=== PATIENT | female | born 1975 | race Caucasian/White ===

== ENCOUNTER 2019-09-11 17:12 | Outpatient (CLI) | payer OTHER, SELFPAY ==
--- NOTE | ~2019-09-11 | MM_ITS ---
EXAMINATION: MM screening mammo BI HISTORY: Screening mammogram TECHNIQUE: Craniocaudal and mediolateral oblique 3-D tomosynthesis images were obtained and synthetic 2-D images were generated. CAD analysis was submitted and interpreted. COMPARISON: No prior mammogram is available for comparison at this institution. BREAST PARENCHYMAL COMPOSITION: The breasts are heterogeneously dense, which may obscure small masses . FINDINGS: There is no evidence of suspicious mass, calcification, or architectural distortion to sugg est malignancy in either breast. There has been no suspicious interval change. IMPRESSION: 1. No mammographic evidence of malignancy. 2. Recommend routine screening mammography in one year. BI-RADS Category 1: Negative Reviewed, dictated and finalized at location A. LY INJURY ADJUSTER
== END 2019-09-11 17:13 | disposition home or self-care (01) ==
LOC: ANHIMG 17:14
PROVIDERS: PCP Family Medicine; Visit Provider Family Medicine
DX: Z12.31 Encounter for screening mammogram for malignant neoplasm of breast (principal)
CPT/HCPCS: 77067

== ENCOUNTER 2020-09-07 06:54 | Outpatient (NON) | payer BC, SELFPAY ==
[2020-09-07 21:14] LABS: SARS-CoV-2 RNA PCR Negative
== END 2020-09-07 06:55 ==
LOC: ANHCOVIDDT 06:58
PROVIDERS: Family Provider Family Medicine; PCP Family Medicine; Visit Provider Physician Assistant
DX: R05 Cough (principal); Z20.822 Contact with and (suspected) exposure to COVID-19
CPT/HCPCS: C9803; U0003; U0005

== ENCOUNTER 2020-09-21 04:39 | Inpatient (IN) | payer BC, SELFPAY ==
[2020-09-21] VITALS (29 sets, daily range): BP systolic 90–132; BP diastolic 56–91; PULSE 72–103; RESP 18–31; TEMP 36.6–37.4; O2SAT 91–99
--- NOTE | ~2020-09-21 | XR_ITS ---
EXAMINATION: XR chest 1V portable DATE: 09/23/2020 11:49 INDICATION: Shortness of breath. COVID-19 pneumonia. TECHNIQUE: A single frontal view of the chest was obtained. COMPARISON: Chest single view 09/21/2020 FINDINGS: There are patchy airspace opacities in all lung zones with a peripheral and mid and lower l glenna zone predominance. No pleural effusion or pneumothorax. The heart size is normal. IMPRESSION: 1. Stable diffuse lung disease, consistent with COVID-19 pneumonia. Reviewed, dictated and finalized at location A. Y EQUIPMENT ENGINE MECHANIC
--- NOTE | ~2020-09-21 | XR_ITS ---
EXAMINATION: XR chest 1V portable DATE: 09/21/2020 05:50 INDICATION: Shortness of breath. COVID-19 positive. TECHNIQUE: A single frontal view of the chest was obtained. COMPARISON: None. FINDINGS: There are patchy airspace opacities in all lung zones bilaterally with a mid and lower lung zone predominance. No pleural effusion or pneumothorax. The heart size is normal. IMPRESSION: 1. Diffuse lung disease, consistent with COVID-19 pneumonia. Reviewed, dictated and finalized at location A. ULATING BATH MIXER
--- NOTE | 2020-09-21 04:43 | PC.NURSE ---
Pt. asking for updates on Pt. states he is concerned about her and that she is starting to get confused.
--- NOTE | 2020-09-21 05:55 | ECG_ITS ---
Measurements Intervals Diagonal Rate: 83 P: 41 WY: 150 QRS: 28 QRSD: 94 T: 30 QT: 360 QTc: 425 Interpretive Statements SINUS RHYTHM BORDERLINE T WAVE ABNORMALITY- INFERIOR LEADS BASELINE ARTIFACT- I, II, III, AVR, AVF BORDERLINE ECG Electronically Signed On 09-21-2020 7:00:34 PIPE ORGAN BUILDER by Lex Paulino D.O.
--- NOTE | 2020-09-21 05:59 | ED.SOB ---
HPI - SOB/Dyspnea General Chief Complaint: Shortness of Breath/Dyspnea Stated Complaint: Covid-19 positive, short of breath Time Seen by Provider: 09/21/20 04:46 History of Present Illness HPI Narrative: Patient is a 44-year-old female who presents the ER with shortness of breath. Patient has been having Covid symptoms for the last week. These include fever/chills/loss of taste/loss of smell. She is also had cough and has been short of breath. The shortness of breath worsened in the last 24 hours. She feels somewhat fatigued she cannot get around. She has not been on any medications. Tested positive for Covid 5 days ago Related Data Home Medications Medication Instructions Recorded Confirmed fexofenadine 60 mg tablet 60 mg PO Q12H 08/12/20 Allergies Allergy/AdvReac Type Severity Reaction Status Date / Time corn Allergy Severe facial Verified 09/21/20 04:56 flushing and tingling gluten Allergy Unknown Gastrointestinal Verified 09/21/20 04:56 Upset doxycycline AdvReac Severe Nausea and Verified 09/21/20 04:56 Vomiting Review of Systems Review of Systems: All systems reviewed & are unremarkable except as noted in HPI and below Constitutional: Constitutional: Reports chills, Reports fatigue and Reports fever(s) ENT: Denies nasal congestion and Denies sore throat Cardiovascular: Cardiovascular: Denies chest pain, Denies rapid heart rate and Denies radiating jaw, neck or arm pain Respiratory: Respiratory: Reports cough, Reports dyspnea and Denies wheezing Gastrointestinal: Gastrointestinal: Denies abdominal pain, Denies diarrhea, Denies nausea and Denies vomiting PMFSH Past Medical History Medical History Allergies Anxiety Arthritis Hx of headache Psoriasis Viral meningitis (~1999) Surgical History Surgical History History of ankle surgery History of kidney donation (~2012) History of partial hysterectomy (~2008) Family History Family History Grandparent Diabetes mellitus Hypertension Family history of elevated blood lipids Family history of cardiovascular disease Cerebrovascular accident Family history of arthritis Family history of Parkinson's disease Family history of malignant neoplasm of bone Family history of malignant neoplasm of breast in first degree relative Skin cancer Acute myocardial infarction Heart disease Cancer Gout Father Depression Family history of arthritis Cancer Mother Family history of glaucoma Hypertension Family history of elevated blood lipids Fibromyalgia Anxiety GERD (gastroesophageal reflux disease) Social History Social History Smoking status: Never smoker Second hand tobacco smoke exposure: No Alcohol intake: never Substance use: never Substance use type: does not use Gender identity (if verbalized by the patient): Female Exam Narrative: Exam Narrative: GENERAL: Fatigued-appearing, well-nourished, and in no acute distress. HEAD: Normocephalic, atraumatic. CHEST: Clear to auscultation with faint expiratory wheezing at the apices. No respiratory distress. HEART: Regular rate and rhythm. Normal peripheral pulses. ABDOMEN: Soft, nontender, nondistended. EXTREMITIES: Normal range of motion. No edema. SKIN: Warm, dry, no rash. NEURO: Alert and oriented x3. PSYCH: Normal mood and affect. Course Course Emergency Course: Admit to hospitalist service. Dexamethasone ordered. Vital Signs Vital signs: Vital Signs Temperature 99.3 F 09/21/20 04:51 Pulse Rate 84 09/21/20 04:51 Respiratory Rate 22 H 09/21/20 04:51 Blood Pressure 112/56 L 09/21/20 04:51 Pulse Oximetry 94 09/21/20 04:51 Temperature 99.3 F 09/21/20 04:51 Pulse Rate 86 09/21/20 04
[2020-09-21 06:34] LABS: Basophils Percent Auto 0.4 % (0.2-1.2); Hematocrit 43.8 % (37.0-47.0); Hemoglobin 15.4 g/dL (12.0-15.0); Immature Granulocyte Absolute 0.03 K/mm3 (0.00-0.031); Immature Granulocyte Percent A 0.6 % (0-0.5); Lymphocytes Absolute Auto 1.22 K/mm3 (0.9-3.2); Lymphocytes Percent Auto 22.9 % (18.3-44.2); Mean Corpuscular HGB Conc 35.2 g/dl (32-36); Mean Corpuscular Volume 90.9 fl (80-100); Mean Platelet Volume 10.4 fl (7.4-10.4); Monocytes Absolute Auto 0.3 K/mm3 (0.1-0.6); Monocytes Percent Auto 4.7 % (2.6-8.5); Neutrophils Absolute Auto 3.8 K/mm3 (1.3-6.7); Neutrophils Percent Auto 71.4 % (45.5-73.1); Platelet Count Result 149 k/mm3 (150-375); Red Blood Count 4.82 M/mm3 (4.2-5.4); Red Cell Distribution Width 12.3 % (11.5-14.5); White Blood Count 5.3 K/mm3 (4.5-10.0)
[2020-09-21 06:45] LABS: D Dimer 0.83 ug/mL (<0.48)
[2020-09-21 06:47] LABS: Alanine Aminotransferase 22 U/L (4-35); Albumin Level 3.7 g/dL (3.5-5.1); Alkaline Phosphatase 72 U/L (38-126); Anion Gap 8 mmol/L (8-16); Aspartate Amino Transferase 49 U/L (14-36); Bilirubin,Total 0.4 mg/dL (0.2-1.3); Blood Urea Nitrogen 10 mg/dL (7-17); CRP 6.3 mg/dL (<1.0); Carbon Dioxide 23 mmol/L (22-30); Chloride 98 mmol/L (98-107); Estimated CRCL calculation 91 ml/min; Estimated Glomerular Filt Rate > 60; Glucose 121 mg/dL (65-105); Potassium 4.1 mmol/L (3.4-5.0); Sodium 129 mmol/L (137-145)
[2020-09-21] MEDS: ACETAMINOPHEN 325 MG TABLET 650 MG PO ×2 (07:02→23:56)
[2020-09-21] MEDS: DEXAMETHASONE SOD PHOS INJ 4 MG/ML VIAL 6 MG IV PUSH (07:07)
--- NOTE | 2020-09-21 07:08 | PC.NURSE ---
Bedside report to XAVI Kemp, to continue care.
--- NOTE | 2020-09-21 10:49 | ADMGEN ---
This patient, Inocencia Acosta, was admitted to 3 Med Surg Room 307-01. Patient/family oriented to hospital policies and general routines including ID bracelet, bed and alarms, visiting hours, pain management, procedures, bathroom and other care routines, personal items, smoking policy, room service/diet, and visiting hours. Information on how to activate the Rapid Response Team has been discussed. Patient/Family are encouraged to report perceived risks to care and to ask questions if they do not understand what they are told or what they should do.
--- NOTE | 2020-09-21 11:11 | PM.IMHP ---
H&P: HPI History of Present Illness Date/Time: 09/21/20 11:11 Chief Complaint: Shortness of breath Narrative: Inocencia Acosta is a 44 year old female patient presented to the hospital with cough and shortness of breath for the past 1 week shortness of breath is worsening gradually worsening with activity patient also have a headache and sore throat patient was tested positive 5 days ago for COVID-19 August patient was tested for COVID-19 was negative chest x-ray shows diffuse pneumonia patient was admitted to the hospital for further evaluation and treatment Review of Systems Review of Systems: All systems reviewed & are unremarkable except as noted in HPI and below PMFSH Past Medical History Medical History Allergies Anxiety Arthritis Hx of headache Psoriasis Viral meningitis (~1999) Surgical History Surgical History History of ankle surgery History of kidney donation (~2012) History of partial hysterectomy (~2008) Family History Family History Grandparent Diabetes mellitus Hypertension Family history of elevated blood lipids Family history of cardiovascular disease Cerebrovascular accident Family history of arthritis Family history of Parkinson's disease Family history of malignant neoplasm of bone Family history of malignant neoplasm of breast in first degree relative Skin cancer Acute myocardial infarction Heart disease Cancer Gout Father Depression Family history of arthritis Cancer Mother Family history of glaucoma Hypertension Family history of elevated blood lipids Fibromyalgia Anxiety GERD (gastroesophageal reflux disease) Social History Social History Smoking status: Never smoker Second hand tobacco smoke exposure: No Alcohol intake: never Substance use: never Substance use type: does not use Gender identity (if verbalized by the patient): Female Sexual Orientation (if Verbalized by the Patient): Straight or Heterosexual Spiritual care concerns: No Meds Home Medications and Allergies Home Medications Medication Instructions Recorded Confirmed Type cyclobenzaprine 10 mg tablet 10 mg PO TID #90 tablet 08/20/19 09/21/20 Rx alprazolam 0.5 mg tablet 0.5 mg PO TID PRN #90 tablet 08/25/19 09/21/20 Rx betamethasone, augmented 0.05 % 1 applic TOPICAL BID PRN #15 gm 06/22/20 09/21/20 Rx topical cream fluticasone propionate 50 1 spray INTRANASAL DAILY #15.8 ml 08/08/20 09/21/20 Rx mcg/actuation nasal spray,suspension fexofenadine 60 mg tablet 60 mg PO Q12H 08/12/20 09/21/20 History sertraline 100 mg tablet 100 mg PO DAILY #90 tablet 08/16/20 09/21/20 Rx albuterol sulfate 90 mcg/actuation 1 puff INHALATION Q4H PRN #8.5 g 09/15/20 09/21/20 Rx aerosol inhaler codeine 10 mg-guaifenesin 100 mg/5 10 ml PO Q4-6H PRN #120 ml 09/20/20 09/21/20 Rx mL oral liquid Allergies Allergy/AdvReac Type Severity Reaction Status Date / Time corn Allergy Severe facial Verified 09/21/20 04:56 flushing and tingling gluten Allergy Unknown Gastrointestinal Verified 09/21/20 04:56 Upset doxycycline AdvReac Severe Nausea and Verified 09/21/20 04:56 Vomiting Vital Signs Vital Signs - 24 hr 09/21/20 04:50 09/21/20 04:51 09/21/20 04:59 Temperature 99.3 F Pulse Rate 86 87 86 Respiratory Rate 31 H 22 H Blood Pressure 112/56 L Pulse Oximetry 91 92 93 09/21/20 05:00 09/21/20 05:01 09/21/20 05:16 Temperature Pulse Rate 85 84 81 Respiratory Rate Blood Pressure 126/91 H Pulse Oximetry 93 94 93 09/21/20 05:30 09/21/20 05:31 09/21/20 05:45 Temperature Pulse Rate 80 80 82 Respiratory Rate Blood Pressure 122/77 Pulse Oximetry 96 94 96 09/21/20 05:46 09/21/20 0
[2020-09-21] MEDS: SODIUM CHLORIDE 0.9% IV 1,000 ML 125 ML IV CONT ×2 (11:25→23:29)
[2020-09-21 11:53] LABS: Alanine Aminotransferase 23 U/L (4-35); Estimated CRCL calculation 91 ml/min; Estimated Glomerular Filt Rate > 60; Lactate Dehydrogenase 806 U/L (313-618)
[2020-09-21 12:01] LABS: D Dimer 0.67 ug/mL (<0.48)
[2020-09-21] MEDS: ZINC SULFATE 220 MG CAPSULE PO (12:20)
[2020-09-21] MEDS: ASCORBIC ACID 500 MG TABLET 1000 MG PO (12:20)
[2020-09-21] MEDS: CHOLECALCIFEROL 1,000 UNITS TABLET 1000 UNITS PO (12:21)
[2020-09-21 12:42] LABS: Fibrinogen 298 mg/dl (215-510)
--- NOTE | 2020-09-21 13:18 | WPDINFPN2 ---
Progress Note: A&P Assessment and Plan (1) Pneumonia due to COVID-19 virus: Code(s): U07.1 - COVID-19; J12.82 - Pneumonia due to coronavirus disease 2019 Status: Acute Assessment and Plan: Dyspnea and cough due to CoVid 19, symptom onset 09/13, exposure 09/11. REC Remdesivir #, dexamethasone # . No antibacterials Subjective Date/time seen: 09/21/20 13:18 Objective Data Vital Signs Vital Signs: Vital Signs - 24 hr 09/21/20 04:50 09/21/20 04:51 09/21/20 04:59 Temperature 37.4 C Pulse Rate 86 87 86 Respiratory Rate 31 H 22 H Blood Pressure 112/56 L Pulse Oximetry 91 92 93 09/21/20 05:00 09/21/20 05:01 09/21/20 05:16 Temperature Pulse Rate 85 84 81 Respiratory Rate Blood Pressure 126/91 H Pulse Oximetry 93 94 93 09/21/20 05:30 09/21/20 05:31 09/21/20 05:45 Temperature Pulse Rate 80 80 82 Respiratory Rate Blood Pressure 122/77 Pulse Oximetry 96 94 96 09/21/20 05:46 09/21/20 06:00 09/21/20 06:01 Temperature Pulse Rate 81 85 84 Respiratory Rate Blood Pressure 126/85 130/86 Pulse Oximetry 94 98 95 09/21/20 06:15 09/21/20 06:17 09/21/20 06:35 Temperature Pulse Rate 81 83 86 Respiratory Rate Blood Pressure 132/82 Pulse Oximetry 96 96 98 09/21/20 07:32 09/21/20 08:18 09/21/20 08:30 Temperature Pulse Rate 81 80 80 Respiratory Rate Blood Pressure Pulse Oximetry 95 95 96 09/21/20 08:32 09/21/20 08:45 09/21/20 08:47 Temperature Pulse Rate 77 78 83 Respiratory Rate Blood Pressure 128/84 130/85 Pulse Oximetry 95 95 96 09/21/20 09:00 09/21/20 09:15 09/21/20 09:17 Temperature Pulse Rate 79 79 79 Respiratory Rate Blood Pressure 90/62 L Pulse Oximetry 96 95 96 09/21/20 10:30 Temperature Pulse Rate 72 Respiratory Rate 18 Blood Pressure 120/66 Pulse Oximetry 97 Meds/Results Medications: Active Medications Generic Name Dose Route Start Last Admin Trade Name Freq PRN Reason Stop Dose Admin Acetaminophen 650 mg 09/21/20 11:06 Acetaminophen 325 Mg Tablet PO Q4H PRN Mild Pain (1-3) or Fever Hydrocodone Bitart/Acetaminophen 1 tab 09/21/20 07:36 Hydrocodone/Acetaminophen (*Crx) 5-325 Mg Tablet PO Q4H PRN Pain Rated 4-6 Al Hydrox/Mg Hydrox/Simethicone 30 ml 09/21/20 11:06 Mag Hydrox/Al Hydrox/Simeth 30 Ml Udc PO QID PRN Dyspepsia Albuterol 2 puff 09/21/20 11:16 Albuterol Sulfate (*Sp) Inhaler INHALATION QIDRT PRN Shortness Of Breath Ascorbic Acid 1,000 mg 09/21/20 09:00 09/21/20 12:20 Ascorbic Acid 500 Mg Tablet PO 1,000 mg DAILY AVERY Administration Bisacodyl 5 mg 09/21/20 11:06 Bisacodyl 5 Mg Tablet Ec PO DAILY PRN Constipation Dexamethasone Sodium Phosphate 6 mg 09/22/20 09:00 Dexamethasone Sod Phos Inj 4 Mg/Ml Vial IV PUSH 09/30/20 09:01 DAILY AVERY Enoxaparin Sodium 30 mg 09/21/20 21:00 Enoxaparin 30 Mg/0.3 Ml Syringe SUB-Q Q12HR AVERY Guaifenesin 200 mg 09/21/20 11:09 Guaifenesin 200 Mg/10 Ml Udc PO Q4H PRN Cough Sodium Chloride 1,000 mls @ 125 mls/hr 09/21/20 07:40 09/21/20 11:25 Normal Saline Iv IV CONT 125 mls/hr .Q8H AVERY Administration Ceftriaxone Sodium/Dextrose 1 gm in 50 mls @ 100 mls/hr 09/21/20 12:00 09/21/20 12:21 Rocephin 1 Gm/D5w 50 Ml IVPB 100 mls/hr Q24H AVERY Administration Remdesivir 100 mg in 250 mls @ 250 mls/hr 09/22/20 10:00 IVPB 09/25/20 10:01 Q24H AVERY Morphine Sulfate 4 mg 09/21/20 07:36 Morphine Sulfate (*Crx) 4 Mg/Ml Inj IV PUSH Q2H PRN Pain Rated 7-10 Ondansetron HCl 4 mg 09/21/20 11:06 Ondansetron Inj 4 Mg/2 Ml Vial IV PUSH Q6H PRN Nausea And Vomiting Vitamin D 1,000 units 09/21/20 09:00 09/21/20 12:21 Cholecalciferol 1,000 Units Tablet PO 1,000 units DAILY AVERY Administration Zinc Sulfate 220 mg 09/21/20 09:00 09/21/20 12:20 Zinc Sulfate 220
[2020-09-21] MEDS: REMDESIVIR 200 MG/NS 250 ML 200 MG/250 ML BAG 250 MG IVPB (13:40)
[2020-09-21] MEDS: guaiFENesin 200 MG/10 ML UDC PO ×2 (16:03→21:16)
--- NOTE | 2020-09-21 19:04 | CONS_ITS ---
DATE OF CONSULTATION: 09/21/2020 REASON FOR CONSULTATION: Coronavirus infection. HISTORY OF PRESENT ILLNESS: A 44-year-old female without chronic lung disease. She is a nonsmoker. She began feeling ill on September 06 with a tickling cough. She was seen in Dr. Osborne's office the same day and was given azithromycin. A Coronavirus assay obtained by throat swab was nonreactive on the following day. Her cough resolved by September 08 and she felt well over the next 5 days. However, on September 13, 8 days before admission, she had recurrence of her cough, but this was quite different and that it felt as it was in her chest and was hacking and much more persistent. She had been exposed to an ill friend 2 days prior, who subsequently has tested positive for Coronavirus. The patient was seen in Dr. Osborne's office once again on September 15, and she was given a corticosteroid injection, doxycycline, and Tessalon Perles. A repeat Coronavirus assay was requested and this was found to be positive on September 16. Being 3 days before admission, the patient had new onset of dyspnea as well as loss of taste and smell. The dyspnea became worse and she presented to the emergency room early this morning, has now been admitted. Her room air saturation was 91% on arrival. She has been on oxygen ever since. The doxycycline caused stomach cramps. No other reaction. She has been given ceftriaxone for unknown reason and also been started on dexamethasone and remdesivir. Other than the above, no prior Coronavirus assays in the last year. No fever, chills, sweats. ALLERGIES: NO KNOWN DRUG ALLERGIES. HABITS: No alcohol, no tobacco. PRESENT MEDICATIONS: As above. No longer-term immunosuppressants. PAST MEDICAL HISTORY: Psoriasis, not treated with systemic medication, anxiety, headaches, viral meningitis in the distant past. PAST SURGICAL HISTORY: Ankle surgery, partial hysterectomy, and kidney donation. FAMILY HISTORY: Multiple positive. SOCIAL HISTORY: She is and works. She has 2 sons, 1 who lives in [place]. Her son has been socially from the parents starting on September 16. However, there were 3 days when he was with his family. The patient's has also tested positive same-day, but he has been minimally symptomatic. PHYSICAL EXAMINATION: GENERAL: female, appears her actual age, in no distress, on supplemental O2. Morbidly obese. VITAL SIGNS: Afebrile, 72, 18, 97% on 2 L, 120/66. SKIN: Warm and dry. EENT: Conjunctivae are normal. Pupils equal, round. Gaze is conjugate. NECK: No masses, adenopathy, meningismus. LUNGS: Clear to auscultation and percussion. Good air entry. CARDIAC: Soft S1, S2. Regular rate and rhythm. No murmur, gallop, or ectopy. EXTREMITIES: Pulses are 2+. She has no peripheral clubbing, cyanosis, edema. ABDOMEN: Nontender, nondistended, soft. No masses. LABORATORY DATA: White count 5.3, hemoglobin 15.4, platelets are 149. Differential is normal. D-dimer minimally elevated. She has hyponatremia. Glucose 121. Ferritin is high. AST 49. LDH 806. CRP 6.3. Liver function tests otherwise normal. RADIOLOGY: Chest x-ray, patchy airspace infiltrates, all lung zones. ASSESSMENT: 1. Dyspnea, cough due to Coronavirus pneumonia. Other causes of her present illness are unlikely. I think the cough that she was experiencing on September 06 was not due to Coronavirus infection. Thus, I would date her symptom onset to September 13. Prior exposure 2 days earlier. She has no sign of bacterial superinfection. 2. Obesity. 3. Mild hypoglycemia. RECOMMENDATIONS: 1. Limited expectation for benefit from remdesivir, but appropriate at this time along with dexamethasone. 2. Isolation approp
[2020-09-21] MEDS: ENOXAPARIN 30 MG/0.3 ML SYRINGE SUB-Q (21:06)
[2020-09-21] MEDS: SERTRALINE HCL 50 MG TABLET 100 MG PO (21:43)
[2020-09-22] VITALS (7 sets, daily range): BP systolic 104–130; BP diastolic 40–72; PULSE 58–114; RESP 16–20; TEMP 36.3–37; O2SAT 91–100
[2020-09-22 06:26] LABS: Basophils Percent Auto 0.1 % (0.2-1.2); Hematocrit 41.9 % (37.0-47.0); Hemoglobin 14.3 g/dL (12.0-15.0); Immature Granulocyte Absolute 0.05 K/mm3 (0.00-0.031); Immature Granulocyte Percent A 0.6 % (0-0.5); Lymphocytes Absolute Auto 1.31 K/mm3 (0.9-3.2); Lymphocytes Percent Auto 15.3 % (18.3-44.2); Mean Corpuscular HGB Conc 34.1 g/dl (32-36); Mean Corpuscular Hemoglobin 31.2 pg (26-34); Mean Corpuscular Volume 91.3 fl (80-100); Mean Platelet Volume 9.9 fl (7.4-10.4); Monocytes Absolute Auto 0.4 K/mm3 (0.1-0.6); Monocytes Percent Auto 4.9 % (2.6-8.5); Neutrophils Absolute Auto 6.8 K/mm3 (1.3-6.7); Neutrophils Percent Auto 79.1 % (45.5-73.1); Platelet Count Result 166 k/mm3 (150-375); Red Blood Count 4.59 M/mm3 (4.2-5.4); White Blood Count 8.5 K/mm3 (4.5-10.0)
[2020-09-22] MEDS: SODIUM CHLORIDE 0.9% IV 1,000 ML 125 ML IV CONT ×2 (06:37→16:06)
[2020-09-22 06:42] LABS: Alanine Aminotransferase 19 U/L (4-35); Estimated CRCL calculation 91 ml/min; Estimated Glomerular Filt Rate > 60
[2020-09-22 06:45] LABS: Alanine Aminotransferase 18 U/L (4-35); Albumin Level 3.2 g/dL (3.5-5.1); Alkaline Phosphatase 58 U/L (38-126); Anion Gap 7 mmol/L (8-16); Aspartate Amino Transferase 41 U/L (14-36); Bilirubin,Total 0.4 mg/dL (0.2-1.3); Blood Urea Nitrogen 12 mg/dL (7-17); CRP 5.7 mg/dL (<1.0); Calcium 7.8 mg/dL (8.4-10.2); Carbon Dioxide 21 mmol/L (22-30); Chloride 104 mmol/L (98-107); Estimated CRCL calculation 101 ml/min; Estimated Glomerular Filt Rate > 60; Glucose 114 mg/dL (65-105); Potassium 4.3 mmol/L (3.4-5.0); Sodium 132 mmol/L (137-145)
[2020-09-22] MEDS: REMDESIVIR 100 MG/NS 250 ML 100 MG/250 ML BAG 250 MG IVPB (10:02)
[2020-09-22] MEDS: CHOLECALCIFEROL 1,000 UNITS TABLET 1000 UNITS PO (10:02)
[2020-09-22] MEDS: guaiFENesin 12 HR 600 MG TABCR PO (10:02)
[2020-09-22] MEDS: ASCORBIC ACID 500 MG TABLET 1000 MG PO (10:03)
[2020-09-22] MEDS: ENOXAPARIN 30 MG/0.3 ML SYRINGE SUB-Q ×2 (10:03→20:01)
[2020-09-22] MEDS: DEXAMETHASONE SOD PHOS INJ 4 MG/ML VIAL 6 MG IV PUSH (10:03)
[2020-09-22] MEDS: ZINC SULFATE 220 MG CAPSULE PO (10:03)
[2020-09-22 11:06] LABS: Fibrinogen 268 mg/dl (215-510)
--- NOTE | 2020-09-22 11:21 | PM.IMPN ---
Progress Note: A&P Assessment and Plan (1) Pneumonia due to COVID-19 virus: Code(s): U07.1 - COVID-19; J12.82 - Pneumonia due to coronavirus disease 2019 Status: Acute Assessment and Plan: Associated with acute hypoxemic respiratory failure Chest x-ray shows infiltrate consistent with COVID-19 lactic acid for routine D-dimer fibroid to lactate dehydrogenase Give dexamethasone remdisever vitamin D zinc vitamin-C no plan for plasma transfusion (2) Hypoxia: Code(s): R09.02 - Hypoxemia Status: Acute Assessment and Plan: Acute hypoxemic respiratory failure secondary to COVID-19 pneumonia oxygen (3) Acute bronchitis: Code(s): J20.9 - Acute bronchitis, unspecified Status: Acute Assessment and Plan: Secondary to COVID-19 management as above (4) Anxiety: Code(s): F41.9 - Anxiety disorder, unspecified Status: Acute Assessment and Plan: Continue home medications once confirmed Additional Plan Nausea vomiting diarrhea probably reaction to Robitussin give Zofran and Imodium Subjective Date/time seen: 09/22/20 11:21 Interval history: Patient seen and examined Patient feels weak shortness of breath has improved Patient had nausea vomiting diarrhea probably reaction to Robitussin Unfortunately limited patient patient cough as she has allergy to corn Patient denies fever headache chest pain I am seeing the patient for COVID-19 pneumonia Exam Narrative: Exam Narrative: Alert Chest bilateral crackles better than yesterday Abdomen nontender nondistended CVS S1 + S2 Lower extremity edema Objective Data Vital Signs Vital Signs: Vital Signs - 24 hr 09/21/20 14:39 09/21/20 16:00 09/21/20 17:31 Temperature 97.9 F 97.9 F Pulse Rate 72 103 H 80 Respiratory Rate 20 20 Blood Pressure 106/62 117/57 L Pulse Oximetry 99 94 09/21/20 20:00 09/22/20 00:00 09/22/20 04:00 Temperature 97.8 F 98.6 F 98.3 F Pulse Rate 82 86 92 Respiratory Rate 20 18 20 Blood Pressure 131/70 119/71 104/40 L Pulse Oximetry 92 95 91 09/22/20 08:00 Temperature 97.8 F Pulse Rate 96 Respiratory Rate 18 Blood Pressure 114/57 L Pulse Oximetry 97 Intake/Output Intake/Output: Intake & Output 02/03/0209/20/20 09/21/20 09/22/20 23:59 23:59 23:59 23:59 Intake Total 1850 1470 Output Total 1200 900 Balance 650 570 Meds/Results Medications: Active Medications Generic Name Dose Route Start Last Admin Trade Name Freq PRN Reason Stop Dose Admin Acetaminophen 650 mg 09/21/20 11:06 09/21/20 23:56 Acetaminophen 325 Mg Tablet PO 650 mg Q4H PRN Administration Mild Pain (1-3) or Fever Hydrocodone Bitart/Acetaminophen 1 tab 09/21/20 07:36 Hydrocodone/Acetaminophen (*Crx) 5-325 Mg Tablet PO Q4H PRN Pain Rated 4-6 Al Hydrox/Mg Hydrox/Simethicone 30 ml 09/21/20 11:06 Mag Hydrox/Al Hydrox/Simeth 30 Ml Udc PO QID PRN Dyspepsia Albuterol 2 puff 09/21/20 11:16 Albuterol Sulfate (*Sp) Inhaler INHALATION QIDRT PRN Shortness Of Breath Ascorbic Acid 1,000 mg 09/21/20 09:00 09/22/20 10:03 Ascorbic Acid 500 Mg Tablet PO 1,000 mg DAILY AVERY Administration Bisacodyl 5 mg 09/21/20 11:06 Bisacodyl 5 Mg Tablet Ec PO DAILY PRN Constipation Dexamethasone Sodium Phosphate 6 mg 09/22/20 09:00 09/22/20 10:03 Dexamethasone Sod Phos Inj 4 Mg/Ml Vial IV PUSH 09/30/20 09:01 6 mg DAILY AVERY Administration Enoxaparin Sodium 30 mg 09/21/20 21:00 09/22/20 10:03 Enoxaparin 30 Mg/0.3 Ml Syringe SUB-Q 30 mg Q12HR AVERY Administration Guaifenesin 600 mg 09/21/20 22:20 09/22/20 10:02 Guaifenesin 12 Hr 600 Mg Tabcr PO 600 mg Q12HR PRN Administration Cough Sodium Chloride 1,000 mls @ 125 mls/hr 09/21/20 07:40 09/22/20 06:37 Normal Saline Iv IV CONT 125 mls/hr .Q8H AVERY Administration Remdesivir 100 mg in 250 mls @ 250 mls/hr 09/22/20 10:00 09/22/20 10:02
[2020-09-22] MEDS: ONDANSETRON INJ 4 MG/2 ML VIAL IV PUSH (12:03)
--- NOTE | 2020-09-22 12:53 | WPDINFPN2 ---
Progress Note: A&P Assessment and Plan (1) Pneumonia due to COVID-19 virus: Code(s): U07.1 - COVID-19; J12.82 - Pneumonia due to coronavirus disease 2019 Status: Acute Assessment and Plan: 1. Dyspnea and cough due to CoVid 19, symptom onset 09/13, exposure 09/11. 2. Nausea and diarrhea, due to past or current meds? REC Remdesivir #2 / 5, dexamethasone # 2 / 10. No antibacterials. C diff assay (multiple recent antibacterials), symptomatic treatment. Subjective Date/time seen: 09/22/20 12:53 Interval history: nausea since last PM, vomited twice so far this am. BM x 3 today, liquid. Exam Narrative: Exam Narrative: afebrile Const: Other: no respiratory distress, but appears ill Eyes: General: appearance normal, both eyes and all related structures Resp: Effort & Inspection: normal respiratory effort Auscultation: clear to auscultation bilaterally Cardio: Rate: regular rate Rhythm: regular rhythm Heart sounds: no murmurs Skin: General skin exam: normal color and no rashes or lesions noted Objective Data Vital Signs Vital Signs: Vital Signs - 24 hr 09/21/20 14:39 09/21/20 16:00 09/21/20 17:31 Temperature 36.6 C 36.6 C Pulse Rate 72 103 H 80 Respiratory Rate 20 20 Blood Pressure 106/62 117/57 L Pulse Oximetry 99 94 09/21/20 20:00 09/22/20 00:00 09/22/20 04:00 Temperature 36.6 C 37.0 C 36.8 C Pulse Rate 82 86 92 Respiratory Rate 20 18 20 Blood Pressure 131/70 119/71 104/40 L Pulse Oximetry 92 95 91 09/22/20 08:00 09/22/20 12:00 Temperature 36.6 C 36.7 C Pulse Rate 97 60 Respiratory Rate 18 16 Blood Pressure 114/57 L 127/72 Pulse Oximetry 97 100 Intake/Output Intake/Output: Intake & Output 09/19/20 09/20/20 09/21/20 09/22/20 23:59 23:59 23:59 23:59 Intake Total 1850 1470 Output Total 1200 900 Balance 650 570 Meds/Results Medications: Active Medications Generic Name Dose Route Start Last Admin Trade Name Freq PRN Reason Stop Dose Admin Acetaminophen 650 mg 09/21/20 11:06 09/21/20 23:56 Acetaminophen 325 Mg Tablet PO 650 mg Q4H PRN Administration Mild Pain (1-3) or Fever Hydrocodone Bitart/Acetaminophen 1 tab 09/21/20 07:36 Hydrocodone/Acetaminophen (*Crx) 5-325 Mg Tablet PO Q4H PRN Pain Rated 4-6 Al Hydrox/Mg Hydrox/Simethicone 30 ml 09/21/20 11:06 Mag Hydrox/Al Hydrox/Simeth 30 Ml Udc PO QID PRN Dyspepsia Albuterol 2 puff 09/21/20 11:16 Albuterol Sulfate (*Sp) Inhaler INHALATION QIDRT PRN Shortness Of Breath Ascorbic Acid 1,000 mg 09/21/20 09:00 09/22/20 10:03 Ascorbic Acid 500 Mg Tablet PO 1,000 mg DAILY AVERY Administration Bisacodyl 5 mg 09/21/20 11:06 Bisacodyl 5 Mg Tablet Ec PO DAILY PRN Constipation Dexamethasone Sodium Phosphate 6 mg 09/22/20 09:00 09/22/20 10:03 Dexamethasone Sod Phos Inj 4 Mg/Ml Vial IV PUSH 09/30/20 09:01 6 mg DAILY AVERY Administration Enoxaparin Sodium 30 mg 09/21/20 21:00 09/22/20 10:03 Enoxaparin 30 Mg/0.3 Ml Syringe SUB-Q 30 mg Q12HR AVERY Administration Guaifenesin 600 mg 09/21/20 22:20 09/22/20 10:02 Guaifenesin 12 Hr 600 Mg Tabcr PO 600 mg Q12HR PRN Administration Cough Sodium Chloride 1,000 mls @ 125 mls/hr 09/21/20 07:40 09/22/20 06:37 Normal Saline Iv IV CONT 125 mls/hr .Q8H AVERY Administration Remdesivir 100 mg in 250 mls @ 250 mls/hr 09/22/20 10:00 09/22/20 10:02 IVPB 09/25/20 10:01 250 mls/hr Q24H AVERY Administration Loperamide HCl 2 mg 09/22/20 11:19 Loperamide Hcl 2 Mg Capsule PO PRN PRN Diarrhea Morphine Sulfate 4 mg 09/21/20 07:36 Morphine Sulfate (*Crx) 4 Mg/Ml Inj IV PUSH Q2H PRN Pain Rated 7-10 Ondansetron HCl 4 mg 09/22/20 11:23 09/22/20 12:03 Ondansetron Inj 4 Mg/2 Ml Vial IV PUSH 4 mg Q6H PRN Administration Nausea And Vomiting Sertraline HCl 100 mg 09/21/20 21:00 09/21/20 21:43 Sertraline Hcl 50
[2020-09-22] MEDS: MAG HYDROX/AL HYDROX/SIMETH 30 ML UDC PO (15:08)
[2020-09-22] MEDS: SERTRALINE HCL 50 MG TABLET 100 MG PO (20:01)
[2020-09-22] MEDS: LOPERAMIDE HCL 2 MG CAPSULE PO (20:01)
[2020-09-23] VITALS (8 sets, daily range): BP systolic 106–136; BP diastolic 53–73; PULSE 73–83; RESP 16–22; TEMP 35.7–36.4; O2SAT 90–95
[2020-09-23] MEDS: SODIUM CHLORIDE 0.9% IV 1,000 ML 125 ML IV CONT ×2 (00:39→08:41)
[2020-09-23 06:31] LABS: Basophils Percent Auto 0.3 % (0.2-1.2); Hematocrit 43.1 % (37.0-47.0); Hemoglobin 14.7 g/dL (12.0-15.0); Immature Granulocyte Absolute 0.06 K/mm3 (0.00-0.031); Immature Granulocyte Percent A 0.9 % (0-0.5); Lymphocytes Absolute Auto 1.35 K/mm3 (0.9-3.2); Mean Corpuscular HGB Conc 34.1 g/dl (32-36); Mean Corpuscular Hemoglobin 31.9 pg (26-34); Mean Corpuscular Volume 93.5 fl (80-100); Mean Platelet Volume 9.9 fl (7.4-10.4); Monocytes Absolute Auto 0.7 K/mm3 (0.1-0.6); Monocytes Percent Auto 10.1 % (2.6-8.5); Neutrophils Absolute Auto 4.4 K/mm3 (1.3-6.7); Neutrophils Percent Auto 67.7 % (45.5-73.1); Platelet Count Result 193 k/mm3 (150-375); Red Blood Count 4.61 M/mm3 (4.2-5.4); Red Cell Distribution Width 12.6 % (11.5-14.5); White Blood Count 6.4 K/mm3 (4.5-10.0)
[2020-09-23 06:38] LABS: Alanine Aminotransferase 18 U/L (4-35); Estimated CRCL calculation 101 ml/min; Estimated Glomerular Filt Rate > 60
[2020-09-23 06:39] LABS: Fibrinogen 277 mg/dl (215-510)
[2020-09-23 06:41] LABS: Alanine Aminotransferase 18 U/L (4-35); Alkaline Phosphatase 57 U/L (38-126); Anion Gap 6 mmol/L (8-16); Aspartate Amino Transferase 34 U/L (14-36); Bilirubin,Total 0.5 mg/dL (0.2-1.3); Blood Urea Nitrogen 12 mg/dL (7-17); Calcium 7.7 mg/dL (8.4-10.2); Carbon Dioxide 23 mmol/L (22-30); Chloride 107 mmol/L (98-107); Estimated CRCL calculation 115 ml/min; Estimated Glomerular Filt Rate > 60; Glucose 111 mg/dL (65-105); Potassium 4.2 mmol/L (3.4-5.0); Sodium 136 mmol/L (137-145)
[2020-09-23] MEDS: ASCORBIC ACID 500 MG TABLET 1000 MG PO (08:43)
[2020-09-23] MEDS: CHOLECALCIFEROL 1,000 UNITS TABLET 1000 UNITS PO (08:43)
[2020-09-23] MEDS: ZINC SULFATE 220 MG CAPSULE PO (08:43)
[2020-09-23] MEDS: DEXAMETHASONE SOD PHOS INJ 4 MG/ML VIAL 6 MG IV PUSH (08:43)
[2020-09-23] MEDS: ENOXAPARIN 30 MG/0.3 ML SYRINGE SUB-Q ×2 (08:43→21:00)
[2020-09-23] MEDS: REMDESIVIR 100 MG/NS 250 ML 100 MG/250 ML BAG 250 MG IVPB (08:47)
--- NOTE | 2020-09-23 10:45 | PM.IMPN ---
Progress Note: A&P Assessment and Plan (1) Pneumonia due to COVID-19 virus: Code(s): U07.1 - COVID-19; J12.82 - Pneumonia due to coronavirus disease 2019 Status: Acute Assessment and Plan: Associated with acute hypoxemic respiratory failure Chest x-ray shows infiltrate consistent with COVID-19 lactic acid for routine D-dimer fibroid to lactate dehydrogenase Give dexamethasone remdisever last dose on 09/25/2020 vitamin D zinc vitamin-C no plan for plasma transfusion controversial treatment (2) Hypoxia: Code(s): R09.02 - Hypoxemia Status: Acute Assessment and Plan: Acute hypoxemic respiratory failure secondary to COVID-19 pneumonia oxygen (3) Acute bronchitis: Code(s): J20.9 - Acute bronchitis, unspecified Status: Acute Assessment and Plan: Secondary to COVID-19 management as above (4) Anxiety: Code(s): F41.9 - Anxiety disorder, unspecified Status: Acute Assessment and Plan: Continue home medications once confirmed Additional Plan Nausea vomiting diarrhea probably reaction to Robitussin give Zofran and Imodium Subjective Date/time seen: 09/23/20 10:45 Interval history: Patient seen and examined Patient feels weak shortness of breath has improved Patient had nausea vomiting diarrhea probably reaction to Robitussin resolved Unfortunately limited patient patient cough as she has allergy to corn Patient denies fever headache chest pain I am seeing the patient for COVID-19 pneumonia Exam Narrative: Exam Narrative: Alert Chest bilateral crackles better than yesterday Abdomen nontender nondistended CVS S1 + S2 Lower extremity edema Const: General: in distress HENMT: Mouth: Yes moist mucous membranes and Yes dry mucous membranes Eyes: General: appearance normal, both eyes and all related structures Neck: Neck: supple Resp: Auscultation: crackles and rales Cardio: Rate: regular rate Rhythm: regular rhythm : External Female Exam: normal external appearance Urinary Catheter: Urinary Catheter: patent and draining Skin: General skin exam: normal color Neuro: General: gait normal Speech: normal speech Extrem: General: normal to inspection Psych: Mental Status: mental status grossly normal Objective Data Vital Signs Vital Signs: Vital Signs - 24 hr 09/22/20 12:00 09/22/20 16:00 09/22/20 20:00 Temperature 98.1 F 98.0 F 97.4 F L Pulse Rate 114 H 86 82 Respiratory Rate 16 18 18 Blood Pressure 127/72 130/68 112/53 L Pulse Oximetry 100 98 93 09/22/20 22:00 09/23/20 00:00 09/23/20 01:00 Temperature 96.3 F L Pulse Rate 80 79 Respiratory Rate 18 18 Blood Pressure 106/59 L Pulse Oximetry 93 93 93 09/23/20 04:00 09/23/20 08:00 Temperature 97.6 F 97.5 F L Pulse Rate 78 78 Respiratory Rate 20 18 Blood Pressure 109/53 L 121/63 Pulse Oximetry 90 92 Intake/Output Intake/Output: Intake & Output 09/20/20 09/21/20 09/22/20 09/23/20 23:59 23:59 23:59 23:59 Intake Total 1850 2960 2780 Output Total 1200 900 900 Balance 650 2060 1880 Meds/Results Medications: Active Medications Generic Name Dose Route Start Last Admin Trade Name Freq PRN Reason Stop Dose Admin Acetaminophen 650 mg 09/21/20 11:06 09/21/20 23:56 Acetaminophen 325 Mg Tablet PO 650 mg Q4H PRN Administration Mild Pain (1-3) or Fever Hydrocodone Bitart/Acetaminophen 1 tab 09/21/20 07:36 Hydrocodone/Acetaminophen (*Crx) 5-325 Mg Tablet PO Q4H PRN Pain Rated 4-6 Al Hydrox/Mg Hydrox/Simethicone 30 ml 09/21/20 11:06 09/22/20 15:08 Mag Hydrox/Al Hydrox/Simeth 30 Ml Udc PO 30 ml QID PRN Administration Dyspepsia Albuterol 2 puff 09/21/20 11:16 Albuterol Sulfate (*Sp) Inhaler INHALATION QIDRT PRN Shortness Of Breath Ascorbic Acid 1,000 mg 09/21/20 09:00 09/23/20 08:43 Ascorbic Acid 500 Mg Tablet PO 1,000 mg DAILY AVERY Administration Bisacodyl 5 mg 09/21/20 11:06
[2020-09-23] MEDS: ALPRAZolam (*CRX) 0.5 MG TABLET PO ×2 (14:37→21:00)
[2020-09-23] MEDS: SERTRALINE HCL 50 MG TABLET 100 MG PO (21:00)
[2020-09-24] VITALS (9 sets, daily range): BP systolic 113–129; BP diastolic 55–67; PULSE 60–85; RESP 18–20; TEMP 36.3–36.6; O2SAT 90–100
[2020-09-24 06:50] LABS: Alanine Aminotransferase 19 U/L (4-35); Estimated CRCL calculation 101 ml/min; Estimated Glomerular Filt Rate > 60
[2020-09-24 07:50] LABS: Fibrinogen 212 mg/dl (215-510)
[2020-09-24] MEDS: CHOLECALCIFEROL 1,000 UNITS TABLET 1000 UNITS PO (08:42)
[2020-09-24] MEDS: ZINC SULFATE 220 MG CAPSULE PO (08:42)
[2020-09-24] MEDS: ENOXAPARIN 30 MG/0.3 ML SYRINGE SUB-Q ×2 (08:42→20:55)
[2020-09-24] MEDS: ASCORBIC ACID 500 MG TABLET 1000 MG PO (08:42)
[2020-09-24] MEDS: DEXAMETHASONE SOD PHOS INJ 4 MG/ML VIAL 6 MG IV PUSH (08:43)
--- NOTE | 2020-09-24 09:38 | PM.IMPN ---
Progress Note: A&P Assessment and Plan (1) Pneumonia due to COVID-19 virus: Code(s): U07.1 - COVID-19; J12.82 - Pneumonia due to coronavirus disease 2019 Status: Acute Assessment and Plan: Associated with acute hypoxemic respiratory failure Chest x-ray shows infiltrate consistent with COVID-19 repeat chest x-ray in a significant worsening lactic acid for routine D-dimer fibroid to lactate dehydrogenase Give dexamethasone remdisever last dose on 09/25/2020 vitamin D zinc vitamin-C no plan for plasma transfusion controversial treatment anticipate discharge home with home health on 09/25/2020 (2) Hypoxia: Code(s): R09.02 - Hypoxemia Status: Acute Assessment and Plan: Acute hypoxemic respiratory failure secondary to COVID-19 pneumonia oxygen (3) Acute bronchitis: Code(s): J20.9 - Acute bronchitis, unspecified Status: Acute Assessment and Plan: Secondary to COVID-19 management as above (4) Anxiety: Code(s): F41.9 - Anxiety disorder, unspecified Status: Acute Assessment and Plan: Continue home medications once confirmed Additional Plan Nausea vomiting diarrhea probably reaction to Robitussin give Zofran and Imodium significantly improved Subjective Date/time seen: 09/24/20 09:38 Interval history: Patient seen and examined Patient feels weak shortness of breath better than yesterday Patient had nausea vomiting diarrhea probably reaction to Robitussin resolved Unfortunately limited patient patient cough as she has allergy to corn patient is breathing better today she is able to ambulate better oxygenation stable chest x-ray no worsening Patient denies fever headache chest pain I am seeing the patient for COVID-19 pneumonia Exam Narrative: Exam Narrative: Alert Chest bilateral crackles better than yesterday Abdomen nontender nondistended CVS S1 + S2 Lower extremity edema Objective Data Vital Signs Vital Signs: Vital Signs - 24 hr 09/23/20 12:00 09/23/20 15:19 09/23/20 16:00 Temperature 97.4 F L 97.4 F L Pulse Rate 78 79 Respiratory Rate 22 H 16 Blood Pressure 122/67 136/73 Pulse Oximetry 92 91 95 09/23/20 20:00 09/24/20 00:00 09/24/20 04:00 Temperature 96.8 F L 97.5 F L 97.4 F L Pulse Rate 73 68 83 Respiratory Rate 20 18 20 Blood Pressure 122/63 123/58 L 118/61 Pulse Oximetry 93 91 90 09/24/20 08:00 Temperature 97.9 F Pulse Rate 70 Respiratory Rate 18 Blood Pressure 126/67 Pulse Oximetry 96 Intake/Output Intake/Output: Intake & Output 09/21/20 09/22/20 09/23/20 09/24/20 23:59 23:59 23:59 23:59 Intake Total 1850 2960 4400 1300 Output Total 2236 654 3453 1900 Balance 650 2060 1800 -600 Meds/Results Medications: Active Medications Generic Name Dose Route Start Last Admin Trade Name Freq PRN Reason Stop Dose Admin Acetaminophen 650 mg 09/21/20 11:06 09/21/20 23:56 Acetaminophen 325 Mg Tablet PO 650 mg Q4H PRN Administration Mild Pain (1-3) or Fever Hydrocodone Bitart/Acetaminophen 1 tab 09/21/20 07:36 Hydrocodone/Acetaminophen (*Crx) 5-325 Mg Tablet PO Q4H PRN Pain Rated 4-6 Al Hydrox/Mg Hydrox/Simethicone 30 ml 09/21/20 11:06 09/22/20 15:08 Mag Hydrox/Al Hydrox/Simeth 30 Ml Udc PO 30 ml QID PRN Administration Dyspepsia Albuterol 2 puff 09/21/20 11:16 Albuterol Sulfate (*Sp) Inhaler INHALATION QIDRT PRN Shortness Of Breath Alprazolam 0.5 mg 09/23/20 13:32 09/23/20 21:00 Alprazolam (*Crx) 0.5 Mg Tablet PO 0.5 mg TID PRN Administration Anxiety Ascorbic Acid 1,000 mg 09/21/20 09:00 09/24/20 08:42 Ascorbic Acid 500 Mg Tablet PO 1,000 mg DAILY AVERY Administration Bisacodyl 5 mg 09/21/20 11:06 Bisacodyl 5 Mg Tablet Ec PO DAILY PRN Constipation Dexamethasone Sodium Phosphate 6 mg 09/22/20 09:00 09/24/20 08:43 Dexamethasone Sod Phos Inj 4 Mg/Ml Vial IV PUSH 09/30/20 09:01 6 mg DAILY AVERY A
[2020-09-24] MEDS: REMDESIVIR 100 MG/NS 250 ML 100 MG/250 ML BAG 250 MG IVPB (11:05)
--- NOTE | 2020-09-24 15:31 | WPDINFPN2 ---
Progress Note: A&P Assessment and Plan (1) Pneumonia due to COVID-19 virus: Code(s): U07.1 - COVID-19; J12.82 - Pneumonia due to coronavirus disease 2019 Status: Acute Assessment and Plan: 1. Dyspnea and cough due to CoVid 19, symptom onset 09/13, exposure 09/11. 2. Nausea and diarrhea, due to past or current meds, resolved REC Remdesivir #4 / 5, dexamethasone # 4 / 10. No antibacterials. Diarrhea has resolved. Ok discharge anytime after 10 AM dose of remdesivir tomorrow. Will see prn, thanks. Subjective Date/time seen: 09/24/20 15:31 Interval history: no n/v. When up and walking slowly, no LONGO Exam Narrative: Exam Narrative: afebrile Const: General: no acute distress Resp: Effort & Inspection: normal respiratory effort Auscultation: clear to auscultation bilaterally Cardio: Rate: regular rate Rhythm: regular rhythm Heart sounds: no gallops and no murmurs GI: Inspection: non-distended GI Palp: Yes Soft to palpation Skin: General skin exam: normal color and no rashes or lesions noted Objective Data Vital Signs Vital Signs: Vital Signs - 24 hr 09/23/20 16:00 09/23/20 20:00 09/24/20 00:00 Temperature 36.3 C L 36.0 C L 36.4 C L Pulse Rate 79 73 68 Respiratory Rate 16 20 18 Blood Pressure 136/73 122/63 123/58 L Pulse Oximetry 95 93 91 09/24/20 04:00 09/24/20 08:00 09/24/20 13:00 Temperature 36.3 C L 36.6 C 36.3 C L Pulse Rate 83 70 77 Respiratory Rate 20 18 20 Blood Pressure 118/61 126/67 119/65 Pulse Oximetry 90 96 95 Intake/Output Intake/Output: Intake & Output 09/21/20 09/22/20 09/23/20 09/24/20 23:59 23:59 23:59 23:59 Intake Total 1850 2960 4650 1540 Output Total 0280 836 9781 1900 Balance 650 2060 2050 -360 Meds/Results Medications: Active Medications Generic Name Dose Route Start Last Admin Trade Name Freq PRN Reason Stop Dose Admin Acetaminophen 650 mg 09/21/20 11:06 09/21/20 23:56 Acetaminophen 325 Mg Tablet PO 650 mg Q4H PRN Administration Mild Pain (1-3) or Fever Hydrocodone Bitart/Acetaminophen 1 tab 09/21/20 07:36 Hydrocodone/Acetaminophen (*Crx) 5-325 Mg Tablet PO Q4H PRN Pain Rated 4-6 Al Hydrox/Mg Hydrox/Simethicone 30 ml 09/21/20 11:06 09/22/20 15:08 Mag Hydrox/Al Hydrox/Simeth 30 Ml Udc PO 30 ml QID PRN Administration Dyspepsia Albuterol 2 puff 09/21/20 11:16 Albuterol Sulfate (*Sp) Inhaler INHALATION QIDRT PRN Shortness Of Breath Alprazolam 0.5 mg 09/23/20 13:32 09/23/20 21:00 Alprazolam (*Crx) 0.5 Mg Tablet PO 0.5 mg TID PRN Administration Anxiety Ascorbic Acid 1,000 mg 09/21/20 09:00 09/24/20 08:42 Ascorbic Acid 500 Mg Tablet PO 1,000 mg DAILY AVERY Administration Bisacodyl 5 mg 09/21/20 11:06 Bisacodyl 5 Mg Tablet Ec PO DAILY PRN Constipation Dexamethasone Sodium Phosphate 6 mg 09/22/20 09:00 09/24/20 08:43 Dexamethasone Sod Phos Inj 4 Mg/Ml Vial IV PUSH 09/30/20 09:01 6 mg DAILY AVERY Administration Enoxaparin Sodium 30 mg 09/21/20 21:00 09/24/20 08:42 Enoxaparin 30 Mg/0.3 Ml Syringe SUB-Q 30 mg Q12HR AVERY Administration Guaifenesin 600 mg 09/21/20 22:20 09/22/20 10:02 Guaifenesin 12 Hr 600 Mg Tabcr PO 600 mg Q12HR PRN Administration Cough Remdesivir 100 mg in 250 mls @ 250 mls/hr 09/22/20 10:00 09/24/20 11:05 IVPB 09/25/20 10:01 250 mls/hr Q24H AVERY Administration Loperamide HCl 2 mg 09/22/20 11:19 09/22/20 20:01 Loperamide Hcl 2 Mg Capsule PO 2 mg PRN PRN Administration Diarrhea Morphine Sulfate 4 mg 09/21/20 07:36 Morphine Sulfate (*Crx) 4 Mg/Ml Inj IV PUSH Q2H PRN Pain Rated 7-10 Ondansetron HCl 4 mg 09/22/20 11:23 09/22/20 12:03 Ondansetron Inj 4 Mg/2 Ml Vial IV PUSH 4 mg Q6H PRN Administration Nausea And Vomiting Sertraline HCl 100 mg 09/21/20 21:00 09/23/20 21:00 Sertraline Hcl 50 Mg Tablet PO 100 mg [facility] Administrat
[2020-09-24] MEDS: ALPRAZolam (*CRX) 0.5 MG TABLET PO (16:37)
[2020-09-24 17:30] LABS: Legionella pneumophila Ag Ur Not Detected (Not Detected)
[2020-09-24] MEDS: SERTRALINE HCL 50 MG TABLET 100 MG PO (20:50)
[2020-09-25] VITALS (7 sets, daily range): BP systolic 99–124; BP diastolic 58–75; PULSE 60–100; RESP 16–20; TEMP 35.9–37.1; O2SAT 91–98
[2020-09-25 06:45] LABS: Alanine Aminotransferase 27 U/L (4-35); Estimated CRCL calculation 101 ml/min; Estimated Glomerular Filt Rate > 60
--- NOTE | 2020-09-25 09:53 | PM.DS ---
DS: Admitting Diagnosis Admitting Diagnosis Admitting Diagnosis: shortness of breath DS: Discharge Diagnosis Discharge Diagnosis (1) Pneumonia due to COVID-19 virus: Code(s): U07.1 - COVID-19; J12.82 - Pneumonia due to coronavirus disease 2018 Status: Acute Assessment and Plan: Associated with acute hypoxemic respiratory failure Chest x-ray shows infiltrate consistent with COVID-19 repeat chest x-ray in a significant worsening lactic acid for routine D-dimer fibroid to lactate dehydrogenase dexamethasone remdisever last dose on 09/25/2020 vitamin D zinc vitamin-C no plan for plasma transfusion controversial treatment patient is very anxious about going home she stated that shortness of breath has significantly improved patient on 1 L of oxygen plan for home O2 evaluation discharge today on oxygen (2) Hypoxia: Code(s): R09.02 - Hypoxemia Status: Acute Assessment and Plan: Acute hypoxemic respiratory failure secondary to COVID-19 pneumonia oxygen significantly improved (3) Acute bronchitis: Code(s): J20.9 - Acute bronchitis, unspecified Status: Acute Assessment and Plan: Secondary to COVID-19 management as above (4) Anxiety: Code(s): F41.9 - Anxiety disorder, unspecified Status: Acute Assessment and Plan: Continue home medications once confirmed DS: Summary Hospital Course Hospital Course: patient was admitted to the hospital shortness of breath associated with hypoxia was found to have COVID-19 pneumonia treated with dexamethasone and remdesiver patient condition significantly improved patient currently require 1 L of oxygen patient will be discharged home with home health with home O2 evaluation patient is very anxious she want to go home today Time Spent with Patient Time attestation: Total time spent providing and/or coordinating discharge services: 30 minutes Exam Narrative: Exam Narrative: Alert Chest bilateral crackles better than yesterday Abdomen nontender nondistended CVS S1 + S2 Lower extremity edema DS: Data Data Completed and Pending Labs on day of discharge: Labs from last 24 hours 09/25/20 09/21/20 05:48 22:07 Creatinine 0.80 Estim Creat Clear Calc 101 Estimated GFR > 60 ALT 27 Ur L.pneumophila Ag Not detected Discharge Plan Discharge Attending physician on discharge: Digna Torres M.A. Discharging Clinician: Digna Torres M.A. Patient Disposition: Home Health Service Activity: as tolerated Diet: as tolerated Patient Instructions: Antibiotic Form, How to Stop Smoking (DC), COVID-19 (Coronavirus Disease 2019) (DC) Stand Alone Forms: General Discharge Information Follow-up/Referrals: Bev Osborne MD [Primary Care Provider] - Discharge Medications: New zinc sulfate 220 (50) mg Capsule 220 mg PO QAM Qty: 15 RF: 0 ascorbic acid (vitamin C) [Vitamin C] 500 mg Tablet 1,000 mg PO DAILY Qty: 15 RF: 0 cholecalciferol (vitamin D3) [Vitamin D3] 25 mcg (1,000 unit) Tablet 1,000 unit PO DAILY Qty: 15 RF: 0 Continued cyclobenzaprine 10 mg tablet 10 mg PO TID Qty: 90 RF: 0 betamethasone, augmented 0.05 % cream 1 applic TOPICAL BID PRN (Reason: skin irritation) Qty: 15 RF: 0 albuterol sulfate [ProAir HFA] 90 mcg/actuation HFA aerosol inhaler 1 puff inhalation Q4H PRN (Reason: shortness of breath or wheezing) Qty: 8.5 RF: 0 alprazolam 0.5 mg tablet 0.5 mg PO TID PRN (Reason: anxiety) Qty: 90 RF: 0 fluticasone propionate [Flonase Allergy Relief] 50 mcg/actuation spray,suspension 1 spray intranasal DAILY Qty: 15.8 RF: 6 fexofenadine [[place] Allergy] 60 mg tablet 60 mg PO Q12H RF: 0 sertraline 100 mg tablet 100 mg PO DAILY Qty: 90 RF: 0 codeine-guaifenesin 10-100 mg/5 mL liquid 10 ml PO Q4-6H PRN (Reason: cough) Qty: 120 RF: 0 Date of admission: 09/21/20 09:23 Primary Care Provider: Bev Osborne Admitting
[2020-09-25] MEDS: ASCORBIC ACID 500 MG TABLET 1000 MG PO (10:18)
[2020-09-25] MEDS: ZINC SULFATE 220 MG CAPSULE PO (10:19)
[2020-09-25] MEDS: CHOLECALCIFEROL 1,000 UNITS TABLET 1000 UNITS PO (10:19)
[2020-09-25] MEDS: DEXAMETHASONE SOD PHOS INJ 4 MG/ML VIAL 6 MG IV PUSH (10:19)
[2020-09-25] MEDS: ENOXAPARIN 30 MG/0.3 ML SYRINGE SUB-Q (10:19)
[2020-09-25] MEDS: REMDESIVIR 100 MG/NS 250 ML 100 MG/250 ML BAG 250 MG IVPB (10:20)
--- NOTE | 2020-09-25 14:08 | HOMEO2EVAL ---
Home Oxygen Evaluation RC: Home Oxygen (O2) Evaluation Start: 09/25/20 09:48 Freq: ONCE Status: Active Protocol: RPE Activity Type Activity Date Activity User E-Sign Co-Sign Detail Recorded Client Recorded Date Recorded By Document 09/25/20 13:00 BARRY [email or web address] 09/25/20 14:08 MDE Document 09/25/20 13:05 MDE [email or web address] 09/25/20 14:08 MDE Document 09/25/20 13:08 MDE [email or web address] 09/25/20 14:08 MDE 09/25/20 09/25/20 09/25/20 13:00 13:05 13:08 Home O2 Evaluation Test Phase Resting Exercise Exercise Oxygen Delivery Room Air Room Air Room Air Fraction of Inspired Oxygen (%) 21 21 21 Pulse Oximetry (90-100 %) 93 96 93 Pulse Rate (60-100 beats/min) 77 100 100 Activity Tolerance Good Good Ambulation Distance (feet) 50 Treatment Charges O2 Evaluation - Inpatient
== END 2020-09-25 15:32 | disposition home or self-care (01) | DRG 177 ==
LOC: ANHED 07:42 → ANH3MEDSUR 10:21
PROVIDERS: Admitting Provider Internal Medicine; Emergency Provider Emergency Medicine; PCP Family Medicine; Visit Provider Internal Medicine
DX: U07.1 COVID-19 (principal); J12.82 Pneumonia due to coronavirus disease 2019; J96.01 Acute respiratory failure with hypoxia; J20.8 Acute bronchitis due to other specified organisms; R41.9 Unspecified symptoms and signs involving cognitive functions and awareness; M19.90 Unspecified osteoarthritis, unspecified site; L40.9 Psoriasis, unspecified; Z52.4 Kidney donor; E66.9 Obesity, unspecified; Z68.38 Body mass index [BMI] 38.0-38.9, adult; R11.2 Nausea with vomiting, unspecified; T48.4X5A Adverse effect of expectorants, initial encounter; F41.9 Anxiety disorder, unspecified
CPT/HCPCS: 36415; 71045; 80053; 82565; 82728; 83615; 84460; 85025; 85380; 85384; 86140; 87070; 87205; 87324; 87449; 93005; 94618; 96374; 99285; A9270; G0378; J0696; J1100; J1650; J2405; J7030

== ENCOUNTER → 2020-10-07 13:01 | Outpatient (CLI) | payer BC, SELFPAY ==
--- NOTE | ~2020-10-07 | XR_ITS ---
XR chest 2V DATE: 10/07/2020 13:14 INDICATION: Covid 19 pneumonia TECHNIQUE: PA and lateral views COMPARISON: September 23, 2020 portable AP chest FINDINGS: There are patchy consolidating infiltrates in the mid and lower lung zones with little inte rval change since September 23, 2020. Normal heart size. No pleural effusion or pulmonary vascular congestion or pneumothorax. IMPRESSION: Persistent patchy bilateral mid and lower lung field infiltrates, relatively stable since 09/23/2020 Reviewed, dictated and finalized at location A. [employer] IMPRESSION: Persistent patchy bilateral mid and lower lung field infiltrates, r elatively stable since 09/23/2020
== END ==
PROVIDERS: PCP Family Medicine; Visit Provider Physician Assistant
DX: U07.1 COVID-19 (principal); J12.82 Pneumonia due to coronavirus disease 2019; R91.8 Other nonspecific abnormal finding of lung field
CPT/HCPCS: 71046

== ENCOUNTER 2020-12-28 09:17 | Outpatient (CLI) | payer OTHER, SELFPAY ==
[2020-12-28 10:01] LABS: Hematocrit 47.9 % (37.0-47.0); Hemoglobin 16.2 g/dL (12.0-15.0); Mean Corpuscular HGB Conc 33.8 g/dl (32-36); Mean Corpuscular Hemoglobin 31.9 pg (26-34); Mean Corpuscular Volume 94.3 fl (80-100); Mean Platelet Volume 9.7 fl (7.4-10.4); Platelet Count Result 292 k/mm3 (150-375); Red Blood Count 5.08 M/mm3 (4.2-5.4); Red Cell Distribution Width 13.1 % (11.5-14.5); White Blood Count 7.5 K/mm3 (4.5-10.0)
[2020-12-28 10:08] LABS: Bilirubin Urine Negative (Negative); Glucose Urine UA Negative (Negative); Leukocyte Esterase Ur Negative LEU/UL (Negative); Urobilinogen Urine 0.2 mg/dL (<2.0)
[2020-12-28 10:09] LABS: Blood Urine Negative (Negative); Nitrate Urine Negative (Negative); Protein Urine Negative (Negative); Specific Grav Ur 1.015 (1.001-1.035)
[2020-12-28 10:10] LABS: Add Urine Microscopic? NO; Ketones Urine Negative (Negative)
[2020-12-28 11:15] LABS: Appearance Urine Clear (Clear); Color Urine Yellow (Yellow)
[2020-12-28 13:44] LABS: Hepatitis B Surface Antigen Negative (Negative)
[2020-12-28 13:45] LABS: Alanine Aminotransferase 30 U/L (4-35); Albumin Level 4.4 g/dL (3.5-5.1); Alkaline Phosphatase 85 U/L (38-126); Anion Gap 6 mmol/L (8-16); Aspartate Amino Transferase 37 U/L (14-36); Bilirubin,Total 0.6 mg/dL (0.2-1.3); Blood Urea Nitrogen 11 mg/dL (7-17); CRP 1.3 mg/dL (<1.0); Calcium 9.4 mg/dL (8.4-10.2); Carbon Dioxide 30 mmol/L (22-30); Chloride 102 mmol/L (98-107); Estimated Glomerular Filt Rate 59; Glucose 95 mg/dL (65-105); Potassium 4.5 mmol/L (3.4-5.0); Sodium 138 mmol/L (137-145)
[2020-12-28 13:46] LABS: Erythrocyte Sedimentation Rate 11 mm/hr (0-20)
[2020-12-28 14:02] LABS: Hepatitis B Surface Anti Res Negative
[2020-12-28 14:03] LABS: Hepatitis C Virus Antibody Negative (Negative)
[2020-12-29 05:58] LABS: Complement C3 143 mg/dL (88-165)
[2020-12-30 21:22] LABS: Anti Cyclic Citrullinated Pept 53 Units (<20)
[2020-12-31 12:57] LABS: NIL 0.05 IU/mL; Quantiferon TB Plus, 1T NEGATIVE (NEGATIVE); TB1-NIL <0.00 IU/mL; TB2-NIL <0.00 IU/mL
[2021-01-06 20:08] LABS: SS-A <1.0; SS-B <1.0
[2021-01-07 08:29] LABS: SM Antibody <1.0; SM/RNP Antibody <1.0
== END 2020-12-28 09:18 | disposition home or self-care (01) ==
LOC: ANHLAB 09:22
PROVIDERS: PCP Family Medicine; Visit Provider Internal Medicine
DX: U07.1 COVID-19 (principal); L40.50 Arthropathic psoriasis, unspecified; R76.8 Other specified abnormal immunological findings in serum; J12.82 Pneumonia due to coronavirus disease 2019; Z11.59 Encounter for screening for other viral diseases
CPT/HCPCS: 36415; 80053; 81003; 85027; 85652; 86140; 86160; 86200; 86225; 86235; 86480; 86706; 86803; 87340

== ENCOUNTER → 2020-12-28 11:10 | Outpatient (CLI) | payer OTHER, SELFPAY ==
--- NOTE | ~2020-12-28 | XR_ITS ---
EXAMINATION: XR foot LT standing 2V INDICATION: Arthropathic psoriasis TECHNIQUE: Two views of the left foot are obtained COMPARISON: 01/23/2017 FINDINGS: There is been interval surgical change of the calcaneus. Bone alignment is normal. There is no fracture. The joint spaces are normal. The soft tissues are unremarkable. A plantar calcaneal ent hesophyte is noted. IMPRESSION: 1. No acute osseous abnormality. Reviewed, dictated and finalized at location A.
--- NOTE | ~2020-12-28 | XR_ITS ---
XR lumbar spine min 4V DATE: 12/28/2020 12:09 INDICATION: Back pain TECHNIQUE: AP, lateral, bilateral oblique views, coned lateral lumbosacral view COMPARISON: None FINDINGS: There is degenerative spurring of the lower thoracic spine. There is moderate degenerative spurring anteriorly at L1-2 interspace is relatively preserved. There is minimal degenerative spurring of the remainder of the lumbar spine, with preservation of lumbar in tervertebral disc spaces. No fracture or bone destruction is evident. The included lower thoracic and lumbar pedicles are intac t. No spondylolysis or spondylolisthesis. The sacral iliac joints appear normal. IMPRESSION: Degenerative changes of the lower thoracic and lumbar spine Reviewed, dictated and finalized at location B.
--- NOTE | ~2020-12-28 | XR_ITS ---
EXAMINATION: XR hand BI arthritis min 3V DATE: 12/28/2020 12:08 INDICATION: Unspecified osteoarthritis TECHNIQUE: Posteroanterior, lateral, and oblique views of the left and of the right hands as well as a ballcatchers view of both hands were obtained. COMPARISON: None. FINDINGS: There is no fracture, dislocation, or subluxation. The bones, soft tissues, and joint spaces are norm al. IMPRESSION: 1. No acute osseous abnormality. Reviewed, dictated and finalized at location A.
--- NOTE | ~2020-12-28 | XR_ITS ---
EXAMINATION: XR sacroiliac joints min 3V INDICATION: Arthropathic psoriasis TECHNIQUE: Three views of the sacroiliac joints are obtained. COMPARISON: None available FINDINGS: Bone alignment is normal. There is no fracture. No abnormal sclerosis or erosion is identif ied. There are phleboliths of the pelvis. IMPRESSION: 1. Unremarkable sacroiliac joints. Reviewed, dictated and finalized at location A.
--- NOTE | ~2020-12-28 | XR_ITS ---
EXAMINATION: XR foot RT standing 2V INDICATION: Arthropathic psoriasis TECHNIQUE: Two views of the right foot are obtained COMPARISON: None available FINDINGS: There is no fracture, dislocation, or subluxation. A plantar calcaneal enthesophyte is note d. The joint spaces are normal. The soft tissues are unremarkable. IMPRESSION: 1. No acute osseous abnormality. Reviewed, dictated and finalized at location A.
== END ==
PROVIDERS: PCP Family Medicine; Visit Provider Internal Medicine
DX: U07.1 COVID-19 (principal); M19.90 Unspecified osteoarthritis, unspecified site; L40.50 Arthropathic psoriasis, unspecified; R76.8 Other specified abnormal immunological findings in serum; J12.82 Pneumonia due to coronavirus disease 2019; M47.815 Spondylosis without myelopathy or radiculopathy, thoracolumbar region
CPT/HCPCS: 72110; 72202; 73130; 73620

== ENCOUNTER → 2020-12-28 11:13 | Outpatient (CLI) | payer OTHER, SELFPAY ==
--- NOTE | ~2020-12-28 | XR_ITS ---
XR chest 2V DATE: 12/28/2020 12:09 INDICATION: Recent pneumonia TECHNIQUE: PA and lateral views COMPARISON: 10/07/2020 PA and lateral chest FINDINGS: Prominent patchy bilateral pulmonary infiltrates noted on 10/07/2020 have virtually complete ly resolved. No pulmonary consolidation, pleural effusion or pneumothorax. Normal heart size. No hilar or mediastinal enlargement. IMPRESSION: No active cardiopulmonary disease Reviewed, dictated and finalized at location B.
== END ==
PROVIDERS: PCP Family Medicine; Visit Provider Physician Assistant
DX: J98.9 Respiratory disorder, unspecified (principal); B94.8 Sequelae of other specified infectious and parasitic diseases
CPT/HCPCS: 71046

== ENCOUNTER 2021-10-26 15:59 | Outpatient (CLI) | payer OTHER, SELFPAY ==
--- NOTE | ~2021-10-26 | MM_ITS ---
EXAMINATION: MM screening [facility] BI w pennie HISTORY: Screening mammogram TECHNIQUE: Craniocaudal and mediolateral oblique 3-D tomosynthesis images were obtained and synthetic 2-D images were generated. CAD analysis was submitted and interpreted. COMPARISON: 09/11/2019, 12/04/2007 BREAST PARENCHYMAL COMPOSITION: The breasts are heterogeneously dense, which may obscure small masses . FINDINGS: There is no suspicious mass, calcification, or architectural distortion to suggest malignan cy in either breast. There has been no suspicious interval change. IMPRESSION: 1. No mammographic evidence of malignancy. 2. Recommend routine screening mammography in one year. BI-RADS Category 1: Negative Reviewed, dictated and finalized at location A.
== END 2021-10-26 16:00 | disposition home or self-care (01) ==
PROVIDERS: PCP Family Medicine; Visit Provider Physician Assistant
DX: Z12.31 Encounter for screening mammogram for malignant neoplasm of breast (principal)
CPT/HCPCS: 77063; 77067

== ENCOUNTER 2022-04-06 12:41 | Outpatient (RCR) | payer OTHER, SELFPAY ==
[2022-04-06 13:08] LABS: Basophils Absolute Auto 0.1 K/mm3 (0.0-0.1); Eosinophils Absolute Auto 0.2 K/mm3 (0-0.3); Eosinophils Percent Auto 2.1 % (0-4.4); Hematocrit 43.1 % (37.0-47.0); Hemoglobin 14.2 g/dL (12.0-15.0); Immature Granulocyte Absolute 0.02 K/mm3 (0.00-0.031); Immature Granulocyte Percent A 0.3 % (0-0.5); Lymphocytes Absolute Auto 3.49 K/mm3 (0.9-3.2); Lymphocytes Percent Auto 47.7 % (18.3-44.2); Mean Corpuscular HGB Conc 32.9 g/dl (32-36); Mean Corpuscular Hemoglobin 32.6 pg (26-34); Mean Corpuscular Volume 98.9 fl (80-100); Mean Platelet Volume 9.8 fl (7.4-10.4); Monocytes Absolute Auto 0.6 K/mm3 (0.1-0.6); Monocytes Percent Auto 8.6 % (2.6-8.5); Neutrophils Percent Auto 40.3 % (45.5-73.1); Platelet Count Result 238 k/mm3 (150-375); Red Blood Count 4.36 M/mm3 (4.2-5.4); Red Cell Distribution Width 13.4 % (11.5-14.5); White Blood Count 7.3 K/mm3 (4.5-10.0)
[2022-04-06 13:09] LABS: Appearance Urine Clear (Clear); Bilirubin Urine Negative (Negative); Blood Urine Negative (Negative); Glucose Urine UA Negative (Negative); Ketones Urine Negative (Negative); Leukocyte Esterase Ur Negative LEU/UL (Negative); Nitrate Urine Negative (Negative); Protein Urine Negative (Negative); Urobilinogen Urine 0.2 mg/dL (<2.0)
[2022-04-06 13:20] LABS: Add Urine Microscopic? NO; Color Urine Light Yellow (Yellow)
[2022-04-06 13:21] LABS: Alanine Aminotransferase 56 U/L (6-35); Albumin Level 4.2 g/dL (3.5-5.1); Alkaline Phosphatase 68 U/L (38-126); Anion Gap 10 mmol/L (8-16); Aspartate Amino Transferase 48 U/L (14-36); Bilirubin,Total 0.6 mg/dL (0.2-1.3); Blood Urea Nitrogen 15 mg/dL (7-17); CRP 0.8 mg/dL (<1.0); Calcium 8.1 mg/dL (8.4-10.2); Carbon Dioxide 26 mmol/L (22-30); Chloride 100 mmol/L (98-107); Estimated Glomerular Filt Rate 48; Glucose 95 mg/dL (65-110); Potassium 4.2 mmol/L (3.4-5.0); Sodium 136 mmol/L (137-145)
[2022-04-06 14:54] LABS: Erythrocyte Sedimentation Rate 7 mm/hr (0-20)
== END 2022-07-05 23:59 | disposition home or self-care (01) ==
LOC: ANHLAB 12:41
PROVIDERS: PCP Family Medicine
DX: L40.50 Arthropathic psoriasis, unspecified (principal); M35.7 Hypermobility syndrome
CPT/HCPCS: 36415; 80053; 81003; 85025; 85652; 86140

== ENCOUNTER 2022-07-12 06:50 | Outpatient (CLI) | payer OTHER, SELFPAY ==
[2022-07-12 08:57] LABS: Appearance Urine Slightly Cloudy (Clear); Bilirubin Urine Negative (Negative); Blood Urine Negative (Negative); Color Urine Yellow (Yellow); Glucose Urine UA Negative (Negative); Ketones Urine Negative (Negative); Leukocyte Esterase Ur Negative LEU/UL (Negative); Nitrate Urine Negative (Negative); Protein Urine Negative (Negative); Specific Grav Ur 1.025 (1.001-1.035); Urobilinogen Urine 0.2 mg/dL (<2.0)
[2022-07-12 09:38] LABS: Bacteria Urine Trace /hpf; Budding Yeast Urine Present /hpf; Mucus Urine Rare /lpf; Squamous Epithelial Cell Urine Moderate /hpf (Few); WBC Urine 0-3 /hpf
[2022-07-12 09:41] LABS: Add Urine Microscopic? YES
[2022-07-12 10:31] LABS: Free T4 Free Thyroxine 1.13 ng/mL (0.78-2.19)
[2022-07-12 11:09] LABS: Erythrocyte Sedimentation Rate 8 mm/hr (0-20)
[2022-07-15 03:03] LABS: Triiodothyronine T3 Free 3.1 pg/mL (2.3-4.2)
[2022-07-16 04:28] LABS: Thyroid Peroxidase Antibodies 2 IU/mL (<9)
== END 2022-07-12 06:51 | disposition home or self-care (01) ==
LOC: ANHLAB 06:55
PROVIDERS: Physician Assistant; PCP Family Medicine
DX: R53.83 Other fatigue (principal); L40.50 Arthropathic psoriasis, unspecified; M35.7 Hypermobility syndrome
CPT/HCPCS: 36415; 81001; 84439; 84443; 84481; 85652; 86376

== ENCOUNTER 2022-10-12 07:01 | Outpatient (CLI) | payer OTHER, SELFPAY ==
[2022-10-12 07:32] LABS: Basophils Absolute Auto 0.1 K/mm3 (0.0-0.1); Basophils Percent Auto 1.4 % (0.2-1.2); Eosinophils Absolute Auto 0.1 K/mm3 (0-0.3); Eosinophils Percent Auto 2.1 % (0-4.4); Hemoglobin 14.9 g/dL (12.0-15.0); Immature Granulocyte Absolute 0.02 K/mm3 (0.00-0.031); Immature Granulocyte Percent A 0.3 % (0-0.5); Lymphocytes Absolute Auto 2.81 K/mm3 (0.9-3.2); Mean Corpuscular HGB Conc 33.9 g/dl (32-36); Mean Corpuscular Hemoglobin 33.3 pg (26-34); Mean Corpuscular Volume 98.4 fl (80-100); Mean Platelet Volume 9.7 fl (7.4-10.4); Monocytes Absolute Auto 0.5 K/mm3 (0.1-0.6); Neutrophils Percent Auto 46.2 % (45.5-73.1); Platelet Count Result 218 k/mm3 (150-375); Red Blood Count 4.47 M/mm3 (4.2-5.4); White Blood Count 6.5 K/mm3 (4.5-10.0)
[2022-10-12 07:50] LABS: Alanine Aminotransferase 77 U/L (6-35); Albumin Level 4.2 g/dL (3.5-5.1); Alkaline Phosphatase 67 U/L (38-126); Anion Gap 5 mmol/L (8-16); Aspartate Amino Transferase 68 U/L (14-36); Blood Urea Nitrogen 13 mg/dL (7-17); CRP 0.8 mg/dL (<1.0); Calcium 8.2 mg/dL (8.4-10.2); Carbon Dioxide 26 mmol/L (22-30); Chloride 102 mmol/L (98-107); Estimated Glomerular Filt Rate > 60; Glucose 92 mg/dL (65-110); Potassium 3.9 mmol/L (3.4-5.0); Sodium 133 mmol/L (137-145)
[2022-10-12 09:11] LABS: Appearance Urine Clear (Clear); Bilirubin Urine Negative (Negative); Blood Urine Negative (Negative); Color Urine Yellow (Yellow); Glucose Urine UA Negative (Negative); Ketones Urine Negative (Negative); Leukocyte Esterase Ur Negative LEU/UL (Negative); Nitrate Urine Negative (Negative); Protein Urine Negative (Negative); Specific Grav Ur 1.017 (1.001-1.035); Urobilinogen Urine 0.2 mg/dL (<2.0); pH Urine 6.5 (5.0-9.0)
[2022-10-12 09:20] LABS: Add Urine Microscopic? NO
[2022-10-12 14:41] LABS: Erythrocyte Sedimentation Rate 8 mm/hr (0-20)
== END 2022-10-12 07:02 | disposition home or self-care (01) ==
LOC: ANHLAB 07:04
PROVIDERS: PCP Family Medicine
DX: L40.50 Arthropathic psoriasis, unspecified (principal); Z79.899 Other long term (current) drug therapy
CPT/HCPCS: 36415; 80053; 81003; 85025; 85652; 86140

== ENCOUNTER 2022-11-25 07:41 | Outpatient (CLI) | payer OTHER, SELFPAY ==
--- NOTE | ~2022-11-25 | MM_ITS ---
EXAMINATION: MM screening [facility] BI w pennie HISTORY: Screening mammogram TECHNIQUE: Craniocaudal and mediolateral oblique 3-D tomosynthesis images were obtained and synthetic 2-D images were generated. CAD analysis was submitted and interpreted. COMPARISON: 10/26/2021, 09/11/2019, 12/04/2007 BREAST PARENCHYMAL COMPOSITION: There are scattered areas of fibroglandular density. FINDINGS: No suspicious mass, calcification, or architectural distortion are identified in either sue ast to suggest malignancy. There has been no suspicious interval change. IMPRESSION: 1. No mammographic evidence of malignancy. 2. Recommend routine screening mammography in one year. BI-RADS Category 1: Negative Reviewed, dictated and finalized at location A.
== END 2022-11-25 07:42 | disposition home or self-care (01) ==
LOC: ANHIMG 07:42
PROVIDERS: PCP Family Medicine; Visit Provider Physician Assistant
DX: Z12.31 Encounter for screening mammogram for malignant neoplasm of breast (principal)
CPT/HCPCS: 77063; 77067

== ENCOUNTER 2023-01-15 10:08 | Outpatient (CLI) | payer OTHER, SELFPAY ==
[2023-01-15 11:13] LABS: Alanine Aminotransferase 30 U/L (6-35); Albumin Level 4.2 g/dL (3.5-5.1); Alkaline Phosphatase 70 U/L (38-126); Anion Gap 2 mmol/L (8-16); Aspartate Amino Transferase 31 U/L (14-36); Bilirubin,Total 0.7 mg/dL (0.2-1.3); Blood Urea Nitrogen 14 mg/dL (7-17); Calcium 8.5 mg/dL (8.4-10.2); Carbon Dioxide 32 mmol/L (22-30); Chloride 103 mmol/L (98-107); Cholesterol 196 mg/dL (0-200); Estimated Glomerular Filt Rate 53; Glucose 93 mg/dL (65-110); HDL Direct 54 mg/dL; Potassium 4.2 mmol/L (3.4-5.0); Sodium 137 mmol/L (137-145); Triglycerides 116 mg/dL (<150)
[2023-01-15 11:24] LABS: LDL Cholesterol Direct 96 mg/dL
== END 2023-01-15 10:09 | disposition home or self-care (01) ==
PROVIDERS: PCP Family Medicine; Visit Provider Physician Assistant
DX: Z13.220 Encounter for screening for lipoid disorders (principal); Z13.1 Encounter for screening for diabetes mellitus
CPT/HCPCS: 36415; 80053; 80061

== ENCOUNTER 2023-03-26 12:05 | Outpatient (CLI) | payer OTHER, SELFPAY ==
[2023-03-26 14:11] LABS: Appearance Urine Clear (Clear); Bilirubin Urine Negative (Negative); Blood Urine Negative (Negative); Color Urine Yellow (Yellow); Glucose Urine UA Negative (Negative); Ketones Urine Negative (Negative); Leukocyte Esterase Ur Negative LEU/UL (Negative); Nitrate Urine Negative (Negative); Protein Urine Negative (Negative); Specific Grav Ur 1.017 (1.001-1.035); Urobilinogen Urine 0.2 mg/dL (<2.0); pH Urine 5.5 (5.0-9.0)
[2023-03-26 14:13] LABS: Basophils Absolute Auto 0.1 K/mm3 (0.0-0.1); Basophils Percent Auto 1.1 % (0.2-1.2); Eosinophils Absolute Auto 0.1 K/mm3 (0-0.3); Hematocrit 44.8 % (37.0-47.0); Hemoglobin 14.8 g/dL (12.0-15.0); Immature Granulocyte Absolute 0.04 K/mm3 (0.00-0.031); Immature Granulocyte Percent A 0.6 % (0-0.5); Lymphocytes Absolute Auto 2.91 K/mm3 (0.9-3.2); Lymphocytes Percent Auto 40.8 % (18.3-44.2); Mean Corpuscular Hemoglobin 33.4 pg (26-34); Mean Corpuscular Volume 101.1 fl (80-100); Mean Platelet Volume 10.6 fl (7.4-10.4); Monocytes Absolute Auto 0.8 K/mm3 (0.1-0.6); Monocytes Percent Auto 10.8 % (2.6-8.5); Neutrophils Absolute Auto 3.2 K/mm3 (1.3-6.7); Neutrophils Percent Auto 44.7 % (45.5-73.1); Platelet Count Result 269 k/mm3 (150-375); Red Blood Count 4.43 M/mm3 (4.2-5.4); Red Cell Distribution Width 13.8 % (11.5-14.5); White Blood Count 7.1 K/mm3 (4.5-10.0)
[2023-03-26 14:23] LABS: Add Urine Microscopic? NO
[2023-03-26 14:25] LABS: Alanine Aminotransferase 43 U/L (6-35); Albumin Level 4.3 g/dL (3.5-5.1); Alkaline Phosphatase 79 U/L (38-126); Anion Gap 5 mmol/L (8-16); Aspartate Amino Transferase 41 U/L (14-36); Bilirubin,Total 0.5 mg/dL (0.2-1.3); Blood Urea Nitrogen 13 mg/dL (7-17); Calcium 8.7 mg/dL (8.4-10.2); Carbon Dioxide 29 mmol/L (22-30); Chloride 102 mmol/L (98-107); Estimated Glomerular Filt Rate 59; Glucose 89 mg/dL (65-110); Sodium 136 mmol/L (137-145)
[2023-03-26 15:13] LABS: Erythrocyte Sedimentation Rate 5 mm/hr (0-20)
== END 2023-03-26 12:06 | disposition home or self-care (01) ==
PROVIDERS: PCP Family Medicine
DX: L40.50 Arthropathic psoriasis, unspecified (principal)
CPT/HCPCS: 36415; 80053; 81003; 85025; 85652; 86140

== ENCOUNTER → 2023-05-22 14:29 | Outpatient (CLI) | payer OTHER, SELFPAY ==
--- NOTE | ~2023-05-22 | XR_ITS ---
AP and lateral views of the left hip Clinical history: Pain Findings: No acute fracture or dislocation is seen. Osseous alignment is anatomic. The left hip joint and left SI joint are preserved. Soft tissues are unremarkable. Impression: No significant abnormality is seen. Reviewed, dictated and finalized at [facility]. Impression: No significant abnormality is seen.
== END ==
DX: M25.552 Pain in left hip (principal); L40.50 Arthropathic psoriasis, unspecified; M35.7 Hypermobility syndrome
CPT/HCPCS: 73502

== ENCOUNTER 2023-07-06 07:19 | Outpatient (CLI) | payer OTHER, SELFPAY ==
[2023-07-06 08:14] LABS: Basophils Absolute Auto 0.1 K/mm3 (0.0-0.1); Basophils Percent Auto 1.3 % (0.2-1.2); Eosinophils Absolute Auto 0.2 K/mm3 (0-0.3); Eosinophils Percent Auto 2.5 % (0-4.4); Hematocrit 44.6 % (37.0-47.0); Immature Granulocyte Absolute 0.02 K/mm3 (0.00-0.031); Immature Granulocyte Percent A 0.3 % (0-0.5); Lymphocytes Absolute Auto 2.72 K/mm3 (0.9-3.2); Lymphocytes Percent Auto 45.4 % (18.3-44.2); Mean Corpuscular HGB Conc 33.6 g/dl (32-36); Mean Corpuscular Hemoglobin 33.5 pg (26-34); Mean Corpuscular Volume 99.6 fl (80-100); Mean Platelet Volume 10.4 fl (7.4-10.4); Monocytes Absolute Auto 0.6 K/mm3 (0.1-0.6); Monocytes Percent Auto 9.2 % (2.6-8.5); Neutrophils Absolute Auto 2.5 K/mm3 (1.3-6.7); Neutrophils Percent Auto 41.3 % (45.5-73.1); Platelet Count Result 278 k/mm3 (150-375); Red Blood Count 4.48 M/mm3 (4.2-5.4); Red Cell Distribution Width 13.5 % (11.5-14.5)
[2023-07-06 08:17] LABS: Appearance Urine Clear (Clear); Bilirubin Urine Negative (Negative); Blood Urine Negative (Negative); Color Urine Yellow (Yellow); Glucose Urine UA Negative (Negative); Ketones Urine Negative (Negative); Leukocyte Esterase Ur Negative LEU/UL (Negative); Nitrate Urine Negative (Negative); Protein Urine Negative (Negative); Specific Grav Ur 1.018 (1.001-1.035); Urobilinogen Urine 0.2 mg/dL (<2.0)
[2023-07-06 08:32] LABS: Alanine Aminotransferase 41 U/L (6-35); Albumin Level 4.2 g/dL (3.5-5.1); Alkaline Phosphatase 65 U/L (38-126); Anion Gap 8 mmol/L (8-16); Aspartate Amino Transferase 40 U/L (14-36); Bilirubin,Total 0.9 mg/dL (0.2-1.3); Blood Urea Nitrogen 13 mg/dL (7-17); CRP 0.8 mg/dL (<1.0); Calcium 8.8 mg/dL (8.4-10.2); Carbon Dioxide 24 mmol/L (22-30); Chloride 104 mmol/L (98-107); Estimated Glomerular Filt Rate > 60; Glucose 95 mg/dL (65-110); Sodium 136 mmol/L (137-145)
[2023-07-06 08:35] LABS: Add Urine Microscopic? NO
[2023-07-06 10:54] LABS: Erythrocyte Sedimentation Rate 7 mm/hr (0-20)
== END 2023-07-06 07:20 | disposition home or self-care (01) ==
DX: L40.50 Arthropathic psoriasis, unspecified (principal); Z79.899 Other long term (current) drug therapy
CPT/HCPCS: 36415; 80053; 81003; 85025; 85652; 86140

== ENCOUNTER 2023-08-01 09:45 | Outpatient (CLI) | payer OTHER, SELFPAY ==
[2023-08-01 10:56] LABS: Free T4 Free Thyroxine 1.07 ng/mL (0.78-2.19)
[2023-08-04 21:57] LABS: Vitamin D 1,25 (OH)2 Total 22 pg/mL (18-72); Vitamin D2 1,25 (OH)2 22 pg/mL; Vitamin D3 1,25 (OH)2 <8 pg/mL
== END 2023-08-01 09:46 | disposition home or self-care (01) ==
LOC: ANHLAB 09:47
PROVIDERS: PCP Family Medicine; Visit Provider Physician Assistant
DX: E55.9 Vitamin D deficiency, unspecified (principal); R53.83 Other fatigue
CPT/HCPCS: 36415; 82652; 84439; 84443

== ENCOUNTER 2023-08-29 08:42 | Outpatient (CLI) | payer OTHER, SELFPAY ==
--- NOTE | ~2023-08-29 | XR_ITS ---
EXAMINATION: XR cervical spine min 6V DATE: 08/29/2023 09:41 INDICATION: Neck pain. Left arm numbness. TECHNIQUE: 7 views of cervical spine including flexion and extension views were obtained. COMPARISON: None. FINDINGS: There is kyphosis of cervical spine. There is 12 degrees levoscoliosis of cervical spine. T here is no abnormal motion with flexion or extension. Vertebral body heights are normal. There is mil dly decreased disc height at C5-C6. There is multilevel mild facet joint osteoarthritis. No central c anal stenosis or prevertebral soft tissue swelling. IMPRESSION: 1. Mild cervical spondylosis. 2. Cervical kyphosis and levoscoliosis. Reviewed, dictated and finalized at location E. LEAD
--- NOTE | 2023-08-29 11:00 | NEURO_ITS ---
Impression: # Complains of dropping things out of left hand. # Left ulnar neuropathy around the elbow. # No Carpal Tunnel Syndrome. # Normal needle/EMG exam. Nerve Conduction Studies Anti Sensory Summary Table Stim Site NR Peak (ms) P-T Amp (?V) Site1 Site2 Delta-P (ms) Dist (cm) Alejandro (m/s) Left Median Anti Sensory (2-3nd Digit) Wrist 2.5 72.2 Wrist 2-3nd Digit 2.5 14.0 56 Wrist 2.4 73.4 Wrist 2-3nd Digit 2.5 14.0 56 Right Median Anti Sensory (2-3nd Digit) Wrist 2.7 66.8 Wrist 2-3nd Digit 2.7 14.0 52 Wrist 2.5 65.4 Wrist 2-3nd Digit 2.7 14.0 52 Left Radial Anti Sensory (Base 1st Digit) Wrist 1.9 22.2 Wrist Base 1st Digit 1.9 0.0 Right Radial Anti Sensory (Base 1st Digit) Wrist 1.9 46.7 Wrist Base 1st Digit 1.9 0.0 Left Ulnar Anti Sensory (5th Digit) Wrist 2.2 67.0 Wrist 5th Digit 2.2 14.0 64 Right Ulnar Anti Sensory (5th Digit) Wrist 2.3 74.5 Wrist 5th Digit 2.3 14.0 61 Motor Summary Table Stim Site NR Onset (ms) O-P Amp (mV) Site1 Site2 Delta-0 (ms) Dist (cm) Alejandro (m/s) Left Median Motor (Abd Poll Brev) Wrist 2.6 3.6 Elbow Wrist 4.9 30.0 61 Elbow 7.5 3.1 Right Median Motor (Abd Poll Brev) Wrist 2.6 3.9 Elbow Wrist 4.7 28.0 60 Elbow 7.3 3.7 Left Ulnar Motor (Abd Dig Minimi) Wrist 2.8 3.9 A Elbow Wrist 5.9 31.0 53 A Elbow 8.7 3.4 B Elbow Wrist 4.4 22.0 50 B Elbow 7.2 3.8 Right Ulnar Motor (Abd Dig Minimi) Wrist 2.5 4.8 A Elbow Wrist 4.9 29.0 59 A Elbow 7.4 4.1 F Wave Studies NR F-Lat (ms) L-R F-Lat (ms) Left Median (Mrkrs) (Abd Poll Brev) 25.34 0.11 Right Median (Mrkrs) (Abd Poll Brev) 25.45 0.11 Left Ulnar (Mrkrs) (Abd Dig Min) 25.88 0.88 Right Ulnar (Mrkrs) (Abd Dig Min) 25.00 0.88 EMG Side Muscle Nerve Root Ins Act Fibs Amp Dur Recrt Comment Right 1stDorInt Ulnar C8-T1 Nml Nml Nml Nml Nml Right Ext Indicis Radial (Post Int) C7-8 Nml Nml Nml Nml Nml Right Ext Digitorum Radial (Post Int) C7-8 Nml Nml Nml Nml Nml Right BrachioRad Radial C5-6 Nml Nml Nml Nml Nml Right PronatorTeres Median C6-7 Nml Nml Nml Nml Nml Right Abd Poll Brev Median C8-T1 Nml Nml Nml Nml Nml Left 1stDorInt Ulnar C8-T1 Nml Nml Nml Nml Nml Left Ext Indicis Radial (Post Int) C7-8 Nml Nml Nml Nml Nml Left Ext Digitorum Radial (Post Int) C7-8 Nml Nml Nml Nml Nml Left BrachioRad Radial C5-6 Nml Nml Nml Nml Nml Left PronatorTeres Median C6-7 Nml Nml Nml Nml Nml Left Abd Poll Brev Median C8-T1 Nml Nml Nml Nml Nml MTDD
== END 2023-08-29 08:43 | disposition home or self-care (01) ==
PROVIDERS: PCP Family Medicine; Referring Provider Physician Assistant
DX: M47.812 Spondylosis without myelopathy or radiculopathy, cervical region (principal); M40.202 Unspecified kyphosis, cervical region; G56.22 Lesion of ulnar nerve, left upper limb; R20.0 Anesthesia of skin; R51.9 Headache, unspecified
CPT/HCPCS: 72052; 95886; 95911

== ENCOUNTER 2023-10-31 12:00 | Outpatient (CLI) | payer OTHER, SELFPAY ==
[2023-10-31 12:46] LABS: Basophils Absolute Auto 0.1 K/mm3 (0.0-0.1); Basophils Percent Auto 1.1 % (0.2-1.2); Eosinophils Absolute Auto 0.1 K/mm3 (0-0.3); Eosinophils Percent Auto 2.4 % (0-4.4); Hematocrit 45.3 % (37.0-47.0); Immature Granulocyte Absolute 0.01 K/mm3 (0.00-0.031); Immature Granulocyte Percent A 0.2 % (0-0.5); Lymphocytes Absolute Auto 2.67 K/mm3 (0.9-3.2); Lymphocytes Percent Auto 48.5 % (18.3-44.2); Mean Corpuscular HGB Conc 33.1 g/dl (32-36); Mean Corpuscular Volume 99.6 fl (80-100); Mean Platelet Volume 10.2 fl (7.4-10.4); Monocytes Absolute Auto 0.5 K/mm3 (0.1-0.6); Monocytes Percent Auto 8.9 % (2.6-8.5); Neutrophils Absolute Auto 2.1 K/mm3 (1.3-6.7); Neutrophils Percent Auto 38.9 % (45.5-73.1); Platelet Count Result 241 k/mm3 (150-375); Red Blood Count 4.55 M/mm3 (4.2-5.4); Red Cell Distribution Width 12.8 % (11.5-14.5); White Blood Count 5.5 K/mm3 (4.5-10.0)
[2023-10-31 13:00] LABS: Alanine Aminotransferase 64 U/L (6-35); Albumin Level 4.2 g/dL (3.5-5.1); Alkaline Phosphatase 74 U/L (38-126); Anion Gap 4 mmol/L (8-16); Aspartate Amino Transferase 76 U/L (14-36); Bilirubin,Total 0.7 mg/dL (0.2-1.3); Blood Urea Nitrogen 16 mg/dL (7-17); CRP 0.6 mg/dL (<1.0); Carbon Dioxide 29 mmol/L (22-30); Chloride 105 mmol/L (98-107); Estimated Glomerular Filt Rate 59; Glucose 95 mg/dL (65-110); Potassium 4.3 mmol/L (3.4-5.0); Sodium 138 mmol/L (137-145)
[2023-10-31 13:23] LABS: Appearance Urine Clear (Clear); Bilirubin Urine Negative (Negative); Blood Urine Negative (Negative); Color Urine Yellow (Yellow); Glucose Urine UA Negative (Negative); Ketones Urine Negative (Negative); Leukocyte Esterase Ur Negative LEU/UL (Negative); Nitrate Urine Negative (Negative); Protein Urine Negative (Negative); Specific Grav Ur 1.011 (1.001-1.035); Urobilinogen Urine 0.2 mg/dL (<2.0)
[2023-10-31 13:33] LABS: Add Urine Microscopic? NO
[2023-10-31 13:51] LABS: Erythrocyte Sedimentation Rate 9 mm/hr (0-20)
== END 2023-10-31 12:01 | disposition home or self-care (01) ==
LOC: ANHLAB 12:01
PROVIDERS: PCP Family Medicine; Visit Provider Internal Medicine
DX: L40.50 Arthropathic psoriasis, unspecified (principal); Z79.899 Other long term (current) drug therapy
CPT/HCPCS: 36415; 80053; 85025; 85652; 86140

== ENCOUNTER 2024-02-01 09:48 | Outpatient (CLI) | payer OTHER, SELFPAY ==
[2024-02-01 10:18] LABS: Alanine Aminotransferase 24 U/L (6-35); Albumin Level 4.3 g/dL (3.5-5.1); Alkaline Phosphatase 72 U/L (38-126); Anion Gap 5 mmol/L (4-12); Aspartate Amino Transferase 30 U/L (14-36); Bilirubin,Total 0.6 mg/dL (0.2-1.3); Blood Urea Nitrogen 16 mg/dL (7-17); Calcium 8.8 mg/dL (8.4-10.2); Carbon Dioxide 29 mmol/L (22-30); Chloride 104 mmol/L (98-107); Cholesterol 174 mg/dL (0-200); Estimated Glomerular Filt Rate 59; Glucose 93 mg/dL (65-110); HDL Direct 51 mg/dL; Potassium 4.7 mmol/L (3.4-5.0); Sodium 138 mmol/L (137-145); Triglycerides 141 mg/dL (<150)
[2024-02-01 10:29] LABS: LDL Cholesterol Direct 93 mg/dL
== END 2024-02-01 09:49 | disposition home or self-care (01) ==
LOC: ANHLAB 09:48
PROVIDERS: PCP Family Medicine; Visit Provider Physician Assistant Medical
DX: E78.2 Mixed hyperlipidemia (principal); Z00.00 Encounter for general adult medical examination without abnormal findings
CPT/HCPCS: 36415; 80053; 80061

== ENCOUNTER 2024-02-21 17:50 | Emergency (ER) | payer OTHER, SELFPAY ==
[2024-02-21 18:00] VITALS: BP 120/85; PULSE 127; RESP 18; TEMP 37.3; O2SAT 97
[2024-02-21 18:03] VITALS: BP 120/85; PULSE 127; RESP 18; TEMP 37.3; O2SAT 97
--- NOTE | 2024-02-21 18:30 | ED.URI ---
HPI - URI/Sore Throat General Chief Complaint: Upper Respiratory Infection Stated Complaint: bodyache,fever Time Seen by Provider: 02/21/24 18:20 Source: patient, RN notes reviewed and old records reviewed Mode of arrival: ambulatory Limitations: no limitations History of Present Illness HPI Narrative: 48 year old female who preents to express care with complaints of having scratchy throat on Sunday and went to [employer] that evening. While at game started feeling worse with increased heart rate, fluid feeling on her ears, dizzy and headache which then has progressed to nausea and vomiting and fevers. Patient reports many ill contacts at hospital with COVID, strep and flu illnesses. MD elicited complaint: fever and other (scratchy throat, dizziness elevated heart rate nausea and vomiting, ear pain) Onset (ago): day(s) (day 2 of symptoms) Consistency: progressively worsening Pain scale (0-10): 6 Description of mucous: clear Able to tolerate fluids by mouth: Yes Treatments prior to arrival: acetaminophen Related Data Home Medications Medication Instructions Recorded Confirmed fexofenadine 60 mg tablet ([place] 60 mg PO Q12H 08/12/20 02/21/24 Allergy) methotrexate sodium 2.5 mg tablet 15 mg PO WEEKLY 12/14/21 02/21/24 adalimumab 40 mg/0.8 mL See Rx Instructions subcut .COMPLEX 07/11/22 02/21/24 subcutaneous syringe kit (Humira) Allergies Allergy/AdvReac Type Severity Reaction Status Date / Time corn Allergy Severe facial Verified 02/21/24 18:01 flushing and tingling gluten Allergy Unknown Gastrointestinal Verified 02/21/24 18:01 Upset doxycycline AdvReac Severe Nausea and Verified 02/21/24 18:01 Vomiting Review of Systems Review of Systems: CONSTITUTIONAL:Reports malaise, chills, sweats, or fever. EYES: Denies visual changes, redness, or discharge. ENT: Reports rhinorrhea, congestion, sinus pain, otalgia and sore throat. CARDIOVASCULAR: Denies chest pain, palpitations, or edema. RESPIRATORY: Reports cough.? Denies dyspnea. GASTROINTESTINAL: Denies abdominal pain, positive for nausea, vomiting, no diarrhea SKIN: Denies rash or itching. MUSCULOSKELETAL: reports myalgia. NEUROLOGIC: reports headache and dizziness All systems reviewed & are unremarkable except as noted in HPI and below PMFSH Past Medical History Medical History Acute bronchitis Allergies NISH positive Anxiety Arthralgia Arthritis Counseling on health promotion and disease prevention COVID-19 Current moderate episode of major depressive disorder without prior episode Current severe episode of major depressive disorder without prior episode Encounter for medication management Hx of headache Hypoxia Ingrown toenail of both feet Mixed hyperlipidemia Other fatigue Pneumonia due to COVID-19 virus Psoriasis Psoriatic arthritis (~2000) Suspected COVID-19 virus infection Upper respiratory tract infection Viral meningitis (~1999) Vitamin D deficiency Surgical History Surgical History History of ankle surgery History of kidney donation (~2012) History of nephrectomy, left History of partial hysterectomy (~2008) Family History Family History Grandparent Diabetes mellitus Hypertension Family history of elevated blood lipids Family history of cardiovascular disease Cerebrovascular accident Family history of arthritis Family history of Parkinson's disease Family history of malignant neoplasm of bone Family history of malignant neoplasm of breast in first degree relative Skin cancer Acute myocardial infarction Heart disease Cancer Gout Father Depression Family history of arthritis Cancer Mother Family history of glaucoma Hypertension Family history of elevated blood lipids Fibromyalgia Anxiety
[2024-02-21 18:36] LABS: EDINFLUASCREEN Negative; EDINFLUBSCREEN Negative; EDSTREPNEGPOS1 Presumptive Negative
== END 2024-02-21 18:50 | disposition home or self-care (01) ==
PROVIDERS: Emergency Provider Registered Nurse; PCP Family Medicine
DX: U07.1 COVID-19 (principal); E78.2 Mixed hyperlipidemia; L40.50 Arthropathic psoriasis, unspecified; Z90.5 Acquired absence of kidney; Z90.711 Acquired absence of uterus with remaining cervical stump
CPT/HCPCS: 87081; 87426; 87804; 87880; 99213; G0463

== ENCOUNTER 2024-03-22 08:29 | Outpatient (CLI) | payer OTHER, SELFPAY ==
--- NOTE | ~2024-03-22 | MM_ITS ---
EXAMINATION: MM screening [facility] w pennie HISTORY: Screening TECHNIQUE: Craniocaudal and mediolateral oblique 3-D tomosynthesis images were obtained and synthetic 2-D images were generated. CAD analysis was submitted and interpreted. COMPARISON: Comparison to multiple prior studies sequentially, with oldest reviewed study dated 09/11. BREAST PARENCHYMAL COMPOSITION: Not dense: There are scattered areas of fibroglandular density. FINDINGS: There is no evidence of suspicious mass, calcification, or architectural distortion to sugg est malignancy in either breast. There has been no suspicious interval change. IMPRESSION: 1. No mammographic evidence of malignancy. 2. Recommend routine screening mammography in one year. BI-RADS Category 1: Negative Reviewed, dictated and finalized at location B.
== END 2024-03-22 08:30 | disposition home or self-care (01) ==
PROVIDERS: PCP Family Medicine; Visit Provider Family Medicine
DX: Z12.31 Encounter for screening mammogram for malignant neoplasm of breast (principal)
CPT/HCPCS: 77063; 77067

== ENCOUNTER 2024-05-05 07:31 | Outpatient (CLI) | payer OTHER, SELFPAY ==
[2024-05-05 08:05] LABS: Basophils Absolute Auto 0.1 K/mm3 (0.0-0.1); Basophils Percent Auto 1.4 % (0.2-1.2); Eosinophils Absolute Auto 0.2 K/mm3 (0-0.3); Eosinophils Percent Auto 3.1 % (0-4.4); Hematocrit 45.6 % (37.0-47.0); Hemoglobin 15.2 g/dL (12.0-15.0); Immature Granulocyte Absolute 0.02 K/mm3 (0.00-0.031); Immature Granulocyte Percent A 0.4 % (0-0.5); Lymphocytes Absolute Auto 2.53 K/mm3 (0.9-3.2); Lymphocytes Percent Auto 45.8 % (18.3-44.2); Mean Corpuscular HGB Conc 33.3 g/dl (32-36); Mean Corpuscular Hemoglobin 32.9 pg (26-34); Mean Corpuscular Volume 98.7 fl (80-100); Mean Platelet Volume 9.4 fl (7.4-10.4); Monocytes Absolute Auto 0.6 K/mm3 (0.1-0.6); Monocytes Percent Auto 10.5 % (2.6-8.5); Neutrophils Absolute Auto 2.2 K/mm3 (1.3-6.7); Neutrophils Percent Auto 38.8 % (45.5-73.1); Platelet Count Result 284 k/mm3 (150-375); Red Blood Count 4.62 M/mm3 (4.2-5.4); Red Cell Distribution Width 13.7 % (11.5-14.5); White Blood Count 5.5 K/mm3 (4.5-10.0)
[2024-05-05 08:18] LABS: Alanine Aminotransferase 29 U/L (6-35); Albumin Level 4.3 g/dL (3.5-5.1); Alkaline Phosphatase 67 U/L (38-126); Anion Gap 9 mmol/L (4-12); Aspartate Amino Transferase 33 U/L (14-36); Bilirubin,Total 0.6 mg/dL (0.2-1.3); Blood Urea Nitrogen 19 mg/dL (7-17); CRP < 0.5 mg/dL (<1.0); Calcium 8.7 mg/dL (8.4-10.2); Carbon Dioxide 23 mmol/L (22-30); Chloride 103 mmol/L (98-107); Estimated Glomerular Filt Rate 53; Glucose 101 mg/dL (65-110); Potassium 4.1 mmol/L (3.4-5.0); Sodium 135 mmol/L (137-145)
[2024-05-05 08:19] LABS: Add Urine Microscopic? NO; Appearance Urine Clear (Clear); Bilirubin Urine Negative (Negative); Blood Urine Negative (Negative); Color Urine Yellow (Yellow); Glucose Urine UA Negative (Negative); Ketones Urine Negative (Negative); Leukocyte Esterase Ur Negative LEU/UL (Negative); Nitrate Urine Negative (Negative); Protein Urine Negative (Negative); Specific Grav Ur 1.019 (1.001-1.035); Urobilinogen Urine 0.2 mg/dL (<2.0); pH Urine 5.5 (5.0-9.0)
[2024-05-05 11:18] LABS: Erythrocyte Sedimentation Rate 11 mm/hr (0-20)
== END 2024-05-05 07:32 | disposition home or self-care (01) ==
LOC: ANHLAB 07:34
PROVIDERS: PCP Family Medicine; Visit Provider Internal Medicine
DX: L40.50 Arthropathic psoriasis, unspecified (principal); Z79.899 Other long term (current) drug therapy
CPT/HCPCS: 36415; 80053; 81003; 85025; 85652; 86140

== ENCOUNTER 2024-07-28 14:33 | Outpatient (CLI) | payer OTHER, SELFPAY ==
[2024-07-28 14:44] LABS: Basophils Absolute Auto 0.1 K/mm3 (0.0-0.1); Eosinophils Absolute Auto 0.2 K/mm3 (0-0.3); Hematocrit 42.2 % (37.0-47.0); Hemoglobin 14.6 g/dL (12.0-15.0); Immature Granulocyte Absolute 0.02 K/mm3 (0.00-0.031); Immature Granulocyte Percent A 0.3 % (0-0.5); Lymphocytes Absolute Auto 3.32 K/mm3 (0.9-3.2); Lymphocytes Percent Auto 47.4 % (18.3-44.2); Mean Corpuscular HGB Conc 34.6 g/dl (32-36); Mean Corpuscular Volume 98.4 fl (80-100); Mean Platelet Volume 9.5 fl (7.4-10.4); Monocytes Absolute Auto 0.7 K/mm3 (0.1-0.6); Monocytes Percent Auto 10.6 % (2.6-8.5); Neutrophils Absolute Auto 2.6 K/mm3 (1.3-6.7); Neutrophils Percent Auto 37.7 % (45.5-73.1); Platelet Count Result 225 k/mm3 (150-375); Red Blood Count 4.29 M/mm3 (4.2-5.4); Red Cell Distribution Width 13.3 % (11.5-14.5)
[2024-07-28 14:53] LABS: Anion Gap 5 mmol/L (4-12); Blood Urea Nitrogen 15 mg/dL (7-17); Calcium 8.7 mg/dL (8.4-10.2); Carbon Dioxide 26 mmol/L (22-30); Chloride 105 mmol/L (98-107); Estimated Glomerular Filt Rate 59; Glucose 108 mg/dL (65-110); Potassium 4.1 mmol/L (3.4-5.0); Sodium 136 mmol/L (137-145)
[2024-07-28 15:05] LABS: Iron 80 ug/dL (37-170)
[2024-07-28 15:14] LABS: Percent Iron Saturation 29 % (20-50)
== END 2024-07-28 14:34 | disposition home or self-care (01) ==
LOC: ANHLAB 14:34
PROVIDERS: PCP Family Medicine; Visit Provider Student in an Organized Health Care Education/Training Program
DX: D58.2 Other hemoglobinopathies (principal); E87.1 Hypo-osmolality and hyponatremia
CPT/HCPCS: 36415; 80048; 82728; 83540; 83550; 85025

== ENCOUNTER 2024-09-30 13:10 | Outpatient (CLI) | payer OTHER, SELFPAY ==
--- NOTE | ~2024-09-30 | XR_ITS ---
Clinical Indication: Cough PA and lateral views of the chest: Comparison: 05/18/2021 Findings: The lungs are clear, without evidence of focal consolidation or pleural effusion. Cardiome diastinal silhouette is within normal limits. Bones and soft tissues are unremarkable. Impression: Normal chest. Reviewed, dictated and finalized at [facility]. LINING MACHINE OPERATOR Impression: Normal chest.
--- OUTSIDE RECORDS SUMMARY | 2024-09-30 13:18 | XMS_ITS | Encounter Summary ---
Author Organization [facility] Address [address] [place] [address] Phone Care Team Providers Care Assessment Director Name Role Phone Bev Osborne MD Primary Care Provider [phone] Reason for Visit * Reason Onset Date Comments Humira vs Adalimumab 09/04/2024 Encounter Details Date Type Department Care Team (Late st Contact Info) Description 09/04/2024 Telephone [facility] Rheumatology [address] [place] [address] Advanced Medicine 5th [place] [address] [place] [address] Chasidy Avilez RMA Humira vs Adalimumab Social History Tobacco Use Types Packs/Day Years Used Date Smoking Tobacco: Never Smokeless Tobacco: Never AUDIT-C Answer Date Recorded Q1: How often do you have a drink containing alcohol? Never 10/23/2023 Q2: How many drinks containi ng alcohol do you have on a typical day when you are drinking? 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 Please release prescription to [facility]. Thank you ET TECHNICIAN documented in this encounter Plan of Treatment Not on file documented as of this encounter Visit Diagnoses Not on filedocumented in this encounter Care Teams Assessment Director Relationship Specialty Start Date End Date Bev Osborne MD PCP - General Family Medicine 05/09/22 documented as of this encounter
--- OUTSIDE RECORDS SUMMARY | 2024-09-30 13:18 | XMS_ITS | Encounter Summary ---
Author Organization [facility] Address [address] [place] [address] Phone Care Team Providers Care Ticket Clerk Name Role Phone Bev Osborne MD Primary Care Provider [phone] Encounter Details Date Type Department Care Team (Late st Contact Info) Description 07/12/2022 Orders Only [facility] Scanning, Provider Social History Tobacco Use Types Packs/Day Years Used Date Smoking Tobacco: Never Comments Unknown Sex and Gender Information Value Date Recorded Sex Assigned at Not on file Legal Sex Female 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 TILE SETTER 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 Gender Identity Female 04/04/2024 10:17 AM CDT Sexual Orientation Straight 04/04/2024 10 :17 AM CDT documented as of this encounter Plan of Treatment Not on file documented as of this encounter Procedures Procedure Name Priority Date/Time Associated Diagnosis Comments SCAN - LABS 07/12/2022 documented in this encounter Results * SCAN - LABS (07/12/2022) us Provider Scanning Final Result documented in this encounter Visit Diagnoses Not on filedocumented in this encounter Care Teams Ticket Clerk Relationship Specialty Start Date End Date Bev Osborne MD PCP - General Family Medicine 05/09/22 documented as of this encounter
--- OUTSIDE RECORDS SUMMARY | 2024-09-30 13:18 | XMS_ITS | Encounter Summary ---
Author Organization [facility] Address [address] [place] [address] Phone Care Team Providers Care Champion Of Sustainable Design Name Role Phone Bev Osborne MD Primary Care Provider [phone] Encounter Details Date Type Department Care Team (Late st Contact Info) Description 10/12/2022 Orders Only [facility] Scanning, Provider Social History Tobacco Use Types Packs/Day Years Used Date Smoking Tobacco: Never AUDIT-C Answer Date Recorded Frequency of Alcohol Consumption Not on file 09/19/2022 Q2: How many drinks containi ng alcohol do you have on a typical day when you are drinking? 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 Gender Identity Female 04/04/2024 10:17 AM CDT Sexual Orientation Straight 04/04/2024 10 :17 AM CDT documented as of this encounter Plan of Treatment Not on file documented as of this encounter Procedures Procedure Name Priority Date/Time Associated Diagnosis Comments SCAN - LABS 10/12/2022 documented in this encounter Results * SCAN - LABS (10/12/2022) us Provider Scanning Edited Result - Final documented in this encounter Visit Diagnoses Not on filedocumented in this encounter Care Teams Champion Of Sustainable Design Relationship Specialty Start Date End Date Bev Osborne MD PCP - General Family Medicine 05/09/22 documented as of this encounter
--- OUTSIDE RECORDS SUMMARY | 2024-09-30 13:18 | XMS_ITS | Encounter Summary ---
Author Organization [facility] Address [address] [place] [address] Phone Care Team Providers Care Senior Oracle Developer Name Role Phone Carole Solomon MD Primary Care Provider [phone] Bev Osborne MD Primary Care Provider Encounter Details Date Type Department Care Team (Late st Contact Info) Description 12/28/2020 Orders Only [facility] Scanning, Provider Social History Tobacco Use Types Packs/Day Years Used Date Smoking Tobacco: Never Comments Unknown Sex and Gender Information Value Date Recorded Sex Assigned at Not on file Legal Sex Female 10:25 AM WATCH SUPERVISOR Gender Identity Female 04/04/2024 10:17 AM CDT Sexual Orientation Straight 04/04/2024 10 :17 AM CDT documented as of this encounter Plan of Treatment Not on file documented as of this encounter Procedures Procedure Name Priority Date/Time Associated Diagnosis Comments SCAN - LABS 12/28/2020 documented in this encounter Results * SCAN - LABS (12/28/2020) us Provider Scanning Final Result documented in this encounter Visit Diagnoses Not on filedocumented in this encounter Care Teams Senior Oracle Developer Relationship Specialty Start Date End Date Carole Solomon MD [facility] [place] [address] PCP - General 06/08/17 05/08/22 Bev Osborne MD [address] [place] [address] PCP - General Family Medicine 05/09/22 documented as of this encounter
--- OUTSIDE RECORDS SUMMARY | 2024-09-30 13:18 | XMS_ITS | Encounter Summary ---
Author Organization [facility] Address [address] [place] [address] Phone Care Team Providers Care Credit Review Analyst Name Role Phone Bev Osborne MD Primary Care Provider [phone] Encounter Details Date Type Department Care Team (Late st Contact Info) Description 05/22/2023 Orders Only [facility] Scanning, Provider Social History Tobacco Use Types Packs/Day Years Used Date Smoking Tobacco: Never AUDIT-C Answer Date Recorded Frequency of Alcohol Consumption Not on file 05/22/2023 Q2: How many drinks containi ng alcohol do you have on a typical day when you are drinking? 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 Gender Identity Female 04/04/2024 10:17 AM CDT Sexual Orientation Straight 04/04/2024 10 :17 AM CDT documented as of this encounter Functional Status documented as of this encounter Plan of Treatment Not on file documented as of this encounter Procedures Procedure Name Priority Date/Time Associated Diagnosis Comments SCAN - RADIOLOGY/IMAGING 05/22/2023 documented in this encounter Results * SCAN - RADIOLOGY/IMAGING (05/22/2023) Anatomical Region Laterality Modality Other us Provider Scanning Final Result documented in this encounter Visit Diagnoses Not on filedocumented in this encounter Care Teams Credit Review Analyst Relationship Specialty Start Date End Date Bev Osborne MD PCP - General Family Medicine 05/09/22 documented as of this encounter
--- OUTSIDE RECORDS SUMMARY | 2024-09-30 13:18 | XMS_ITS | Encounter Summary ---
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 Gender Identity Female 04/04/2024 10:17 AM CDT Sexual Orientation Straight 04/04/2024 10 :17 AM CDT documented as of this encounter Plan of Treatment Not on file documented as of this encounter Procedures Procedure Name Priority Date/Time Associated Diagnosis Comments SCAN - LABS 10/31/2023 documented in this encounter Results * SCAN - LABS (10/31/2023) us Provider Scanning Edited Result - Final documented in this encounter Visit Diagnoses Not on filedocumented in this encounter Care Teams Supervisor Spring Up Relationship Specialty Start Date End Date Bev Osborne MD PCP - General Family Medicine 05/09/22 documented as of this encounter
--- OUTSIDE RECORDS SUMMARY | 2024-09-30 13:18 | XMS_ITS | Referral Summary ---
Author Organization [facility] Address [address] [place] [address] Care Team Providers Care Saw Man Name Role Phone Bev Osborne MD Primary Care Provider [phone] Encounters Date Type Department Care Team Description 09/04/2024 Telephone [facility] Rheumat[facility] [address] [place] [address] Chasidy Avilez, RMA Humira vs Adalimumab 09/04/2024 Orders Only [facility] Rheumat[facility] [address] [place] [address] Nida Vasquez MD 09/04/2024 Orders Only [facility] Rheumatology [address] [place] [address] [place] [address] Irvin Sam MD 08/16/2024 Telephone [facility] [address] [facility] [address] [place] [address] Chikis Cherry lesly from Last 3 Months Allergies Active Allergy Reactions Criticality Noted Date Comments Doxycycline Diarrhea Low 09/13/2021 Also hives Medications Bifidobacteri um infantis (ALIGN) 4 mg capsule 1 capsule (4 mg total) Active ergocalcifero l (VITAMIN D) 50,000 unit capsule Take 1 capsule (50,000 Units total) by mouth once a week Active cyclobenzapri ne (FLEXERIL) 10 mg tablet Take 1 tablet (10 mg total) by mouth 3 (three) times a day as needed for muscle spasms Active sertraline (ZOLOFT) 100 mg tablet Take 1 tablet (100 mg total) by mouth daily Active ALPRAZolam (XANAX) 0.5 mg tablet Take 1 tablet (0.5 mg total) by mouth nightly as needed for anxiety Active fluticasone propionate (FLONASE) 50 mcg/actuation nasal spray Administer 1 spray into each nostril daily Active folic acid (FOLVITE) 1 mg tablet TAKE 1 TABLET BY MOUTH DAILY 90 tablet 3 024 Active methotrexate 2.5 mg tablet TAKE 8 TABLETS BY MOUTH EVERY 7 DAYS 104 tablet 1 024 Active adalimumab-ad az 40 mg/0.4 mL pen injector Inject 40 mg/0.4 ml under the skin every 14 days 0.8 mL 5 025 Active Humira,CF, Pen 40 mg/0.4 mL pen injector kit INJECT 1 PEN SUBCUTANEOUSLY EVERY OTHER WEEK 2 each 3 025 2024 Discontinued(O ther) adalimumab (HUMIRA, CF, SYRINGE) 40 mg/0.4 mL syringe kit Inject 0.4 mL (40 mg total) under the skin every 14 (fourteen) days 2 each 8 025 2024 Discontinued Active Problems No known active problems Social History Tobacco Use Types Packs/Day Years [...] on file Legal Sex Female 10:25 AM LPN PRIVATE DUTY Gender Identity Female 04/04/2024 10:17 AM CDT Sexual Orientation Straight 04/04/2024 10 :17 AM CDT Last Filed Vital Signs Vital Sign Reading Time Taken Comments Blood Pressure 104/64 10/23/2023 1:05 PM CDT Pulse 86 10/23/2023 1:05 PM CDT Temperature 36.5 C (97.7 F) 10/23/2023 1:05 PM CDT Respiratory Rate - - Oxygen Saturation 96% 10/23/2023 1:05 PM CDT Inhaled Oxygen Concentration - - Weight 113.7 kg (250 lb 9.6 oz) 10/23/2023 1:05 PM CDT Height 172.7 cm (5' 8 ) 10/23/2023 1:05 PM CDT Body Mass Index 38.1 10/23/2023 1:05 PM CDT Plan of Treatment Not on file Procedures Procedure Name Priority Date/Time Associated Diagnosis Comments SERUM HEPATITIS C AB Routine 01/08/2013 2:20 AM CDT from Last 3 Months or Most Recently Relevant to Health Maintenance Results * Serum Hepatitis C ab (01/08/2013 2:20 AM CDT) HCV ab Negative NEG HISTORICAL RESULTS Serum 01/08/2013 2:20 AM CDT Narrative HISTORICAL RESULTS - 01/08/2013 6:41 AM CDT LAB Frequency Standing Order? No Expiration Date: Interpretive Data If confirmation is required, call Laboratory Customer Service to request sample to be sent to [facility] for Hepatitis C Virus (HCV) RNA Detection and Quantitation by Real-Time Reverse Cause Analyst-PCR (RT-PCR). Current interpretive data was last revised on 2011 Supa Bella MD LAB BLOOD ORDERABLES Final Result HISTORICAL RESULTS from Last 3 Months or Most Recently Relevant to Health Maintenance Insurance [facility] Address: [address] [address] [place] [address] [facility] Address: [place] [address] [facility] Address: [address] [address] Care Teams Saw Man Relationship Specialty Start Date End Date Bev Osborne MD PCP - General Family Medicine 05/09/22
--- OUTSIDE RECORDS SUMMARY | 2024-09-30 13:18 | XMS_ITS | Encounter Summary ---
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 Gender Identity Female 04/04/2024 10:17 AM CDT Sexual Orientation Straight 04/04/2024 10 :17 AM CDT documented as of this encounter Plan of Treatment Not on file documented as of this encounter Procedures Procedure Name Priority Date/Time Associated Diagnosis Comments SCAN - LABS 03/26/2023 documented in this encounter Results * SCAN - LABS (03/26/2023) us Provider Scanning Edited Result - Final documented in this encounter Visit Diagnoses Not on filedocumented in this encounter Care Teams Tiger Machine Operator Relationship Specialty Start Date End Date Bev Osborne MD PCP - General Family Medicine 05/09/22 documented as of this encounter
--- OUTSIDE RECORDS SUMMARY | 2024-09-30 13:18 | XMS_ITS | Encounter Summary ---
Author Organization [facility] Address [address] [place] [address] Phone Care Team Providers Care Optical Engineer Name Role Phone Bev Osborne MD Primary Care Provider [phone] Encounter Details Date Type Department Care Team (Late st Contact Info) Description 05/05/2024 Orders Only [facility] Scanning, Provider Social [...] on file Legal Sex Female 10:25 AM PROGRAM MANAGER RN Gender Identity Female 04/04/2024 10:17 AM CDT Sexual Orientation Straight 04/04/2024 10 :17 AM CDT documented as of this encounter Plan of Treatment Not on file documented as of this encounter Procedures Procedure Name Priority Date/Time Associated Diagnosis Comments SCAN - LABS 05/05/2024 documented in this encounter Results * SCAN - LABS (05/05/2024) us Provider Scanning Final Result documented in this encounter Visit Diagnoses Not on filedocumented in this encounter Care Teams Optical Engineer Relationship Specialty Start Date End Date Bev Osborne MD PCP - General Family Medicine 05/09/22 documented as of this encounter
--- OUTSIDE RECORDS SUMMARY | 2024-09-30 13:18 | XMS_ITS | Clinical Summary ---
Author Organization [facility] Address [facility] [place] [address] Care Team Providers Care Small Craft Operator Name Role Phone Bev Osborne MD Primary Care Provider [phone] Allergies Active Allergy Reactions Criticality Noted Date [...] Discontinued Active Problems No known active problems Encounters Date Type Department Care Team Description 09/04/2024 Telephone [facility] Rheumatology [address] [facility] Medicine [facility] Floor [address] [place] [id number] Chasidy Avilez, DOMENIC Humira vs Adalimumab 09/04/2024 Orders Only [facility] Rheumatology [address] [place] [address] [address] [place] [id number] Nida Vasquez MD 09/04/2024 Orders Only [facility] Rheumatology [facility] [place] [address] [place] [address] Irvin Sam MD 08/16/[address] 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 Pneumonia 09/2020 Family History Medical History Relation Name Comments Liver cancer Father Anxiety disorder Mother Asthma Mother Fibromyalgia Mother Hypertension Mother Relation Name Status Comments Father Mother Social History Tobacco Use Types Packs/Day Years [...] on file Legal Sex Female 10:25 AM LUMBER HANDLER Gender Identity Female 04/04/2024 10:17 AM CDT Sexual Orientation Straight 04/04/2024 10 :17 AM CDT Obstetrics History Last Filed Vital Signs Vital Sign Reading [...] 10/23/2023 1:05 PM CDT Plan of Treatment Health Maintenance Due Date Last Done Comments Breast Cancer Screening-Mammogram 1973 Cervical Cancer Screening 1973 Colon Cancer Screening-Colonoscopy 1973 Depression Screening 1973 DTaP/Tdap/Td Vaccine (1 - Tdap) 1984 Hepatitis B Screening 10/14/1991 Regular Well Visit/Exam 18-64 10/14/1991 Pneumococcal vaccine <65 (1 of 2 - PCV) 1992 Zoster Vaccine (1 of 2) 1992 Covid-19 Vaccine (3 - Pfizer risk series) 08/31/2021 08/03/2021, 07/13/2021 Influenza Vaccine (#1) 2024 06/22/2020 Hepatitis C Screening Completed 01/08/2013 Procedures Procedure Name Priority Date/Time Associated Diagnosis [...] to request sample to be sent to [facility] for Hepatitis C Virus (HCV) RNA Detection and Quantitation by Real-Time Reverse Linotype Operator-PCR (RT-PCR). Current interpretive data was last revised on 2011 us Supa Bella MD LAB BLOOD ORDERABLES Final Result HISTORICAL RESULTS from Last 3 Months or Most Recently Relevant to Health Maintenance Insurance [facility] Care Teams Small Craft Operator Relationship Specialty Start Date End Date Bev Osborne MD PCP - General Family Medicine 05/09/22
== END 2024-09-30 13:11 | disposition home or self-care (01) ==
LOC: ANHIMG 13:11
PROVIDERS: PCP Family Medicine; Visit Provider Family Medicine
DX: R05.9 Cough, unspecified (principal)
CPT/HCPCS: 71046

== ENCOUNTER 2024-10-09 14:31 | Outpatient (CLI) | payer OTHER, SELFPAY ==
[2024-10-09 14:50] LABS: Basophils Absolute Auto 0.1 K/mm3 (0.0-0.1); Basophils Percent Auto 0.9 % (0.2-1.2); Eosinophils Absolute Auto 0.4 K/mm3 (0-0.3); Eosinophils Percent Auto 3.7 % (0-4.4); Hemoglobin 14.5 g/dL (12.0-15.0); Immature Granulocyte Absolute 0.03 K/mm3 (0.00-0.031); Immature Granulocyte Percent A 0.3 % (0-0.5); Lymphocytes Absolute Auto 4.27 K/mm3 (0.9-3.2); Lymphocytes Percent Auto 43.7 % (18.3-44.2); Mean Corpuscular HGB Conc 33.7 g/dl (32-36); Mean Corpuscular Hemoglobin 33.5 pg (26-34); Mean Corpuscular Volume 99.3 fl (80-100); Mean Platelet Volume 10.2 fl (7.4-10.4); Monocytes Absolute Auto 0.7 K/mm3 (0.1-0.6); Monocytes Percent Auto 6.9 % (2.6-8.5); Neutrophils Absolute Auto 4.4 K/mm3 (1.3-6.7); Neutrophils Percent Auto 44.5 % (45.5-73.1); Platelet Count Result 249 k/mm3 (150-375); Red Blood Count 4.33 M/mm3 (4.2-5.4); Red Cell Distribution Width 12.9 % (11.5-14.5); White Blood Count 9.8 K/mm3 (4.5-10.0)
[2024-10-09 15:09] LABS: Add Urine Microscopic? YES; Appearance Urine Clear (Clear); Bacteria Urine None Seen /hpf; Bilirubin Urine Negative (Negative); Blood Urine Negative (Negative); Color Urine Yellow (Yellow); Glucose Urine UA Negative (Negative); Ketones Urine Trace mg/dL (Negative); Leukocyte Esterase Ur 1+ LEU/UL (Negative); Need Manual Microscopic Reviewed; Nitrate Urine Negative (Negative); Non Pathogenic Casts 0-2; Protein Urine Negative (Negative); RBC Urine 0-2 /hpf (0-2); Specific Grav Ur 1.021 (1.001-1.035); Squamous Epithelial Cell Urine Moderate /hpf (Few); Urobilinogen Urine 0.2 mg/dL (<2.0); WBC Urine 0-5 /hpf (0-3); pH Urine 5.5 (5.0-9.0)
[2024-10-09 15:14] LABS: Alanine Aminotransferase 38 U/L (6-35); Albumin Level 3.9 g/dL (3.5-5.1); Alkaline Phosphatase 78 U/L (38-126); Anion Gap 8 mmol/L (4-12); Aspartate Amino Transferase 33 U/L (14-36); Bilirubin,Total 0.5 mg/dL (0.2-1.3); Blood Urea Nitrogen 16 mg/dL (7-17); CRP 0.7 mg/dL (<1.0); Carbon Dioxide 26 mmol/L (22-30); Chloride 102 mmol/L (98-107); Estimated Glomerular Filt Rate > 60; Glucose 117 mg/dL (65-110); Potassium 4.2 mmol/L (3.4-5.0); Sodium 136 mmol/L (137-145)
[2024-10-09 15:38] LABS: Erythrocyte Sedimentation Rate 12 mm/hr (0-20)
== END 2024-10-09 14:32 | disposition home or self-care (01) ==
LOC: ANHLAB 14:34
PROVIDERS: PCP Family Medicine; Visit Provider Internal Medicine
DX: L40.50 Arthropathic psoriasis, unspecified (principal)
CPT/HCPCS: 36415; 80053; 81001; 85025; 85652; 86140

== ENCOUNTER 2024-10-31 07:57 | Outpatient (CLI) | payer OTHER, SELFPAY ==
--- OUTSIDE RECORDS SUMMARY | 2024-10-31 08:06 | XMS_ITS | Clinical Summary ---
Author Organization [facility] Address [address] [place] [address] Care Team Providers Care Welt Sewer Name Role Phone Bev Osborne MD Primary Care Provider [phone] Allergies Active Allergy Reactions Criticality Noted Date Comments Doxycycline Diarrhea Low 09/13/2021 Also hives Medications Bifidobacteriu m infantis (ALIGN) 4 mg capsule 1 capsule (4 mg total) Active ergocalciferol (VITAMIN D) 50,000 unit capsule Take 1 capsule (50,000 Units total) by mouth once a week Active cyclobenzaprin e (FLEXERIL) 10 mg tablet Take 1 tablet [...] 1 spray into each nostril daily Active methotrexate 2.5 mg tablet TAKE 8 TABLETS BY MOUTH EVERY 7 DAYS 104 tablet 1 4 Active adalimumab-ada z 40 mg/0.4 mL pen injector Inject 40 mg/0.4 ml under the skin every 14 days 0.8 mL 5 5 Active folic acid (FOLVITE) 1 mg tablet Take 1 tablet (1 mg total) by mouth daily 90 tablet 3 5 Active folic acid (FOLVITE) 1 mg tablet TAKE 1 TABLET BY MOUTH DAILY 90 tablet 3 4 10/29/19 25 Discontinu ed(Reorder ) Active Problems No known active problems Encounters Date Type Department Care Team Description 10/28/2024 2:40 PM CDT Office Visit [facility] Rheumatology [address] [place] [address] Office [address] [place] [address] Nida Vasquez MD Psoriatic arthritis (HCC) (Primary Dx); High risk medication use 10/28/2024 Orders Only [facility]umatology [address] [place] [address] Office [address] [place] [address] Nida Vasquez MD Psoriatic arthritis (HCC) (Primary Dx); High risk medication use 10/28/2024 Orders Only [facility]umatology [address] [place] [address] [address] [place] [address] Nida Vasquez MD Psoriatic arthritis (HCC) (Primary Dx); High risk medication use 10/09/[address] [facility] RHEUMATOLOGY Scanning, Provider 10/09/2024 Orders Only [facility]umatology [address] [place] [address] Medicine [facility] [place] [address] [place] [address] Nida Vasquez MD Psoriatic arthritis (HCC) (Primary Dx) 09/04/2024 Telephone [facility]ology [facility] 5th [place] [address] [place] [address] Chasidy Avilez, RMA Humira vs Adalimumab 09/04/2024 Orders Only [facility] Rheumatology [address] [place] [address] Medicine 5th [place] [address] [place] [address] Nida Vasquez MD 09/04/2024 Orders Only [facility] Rheumatology [address] [place] [address] Medicine [facility] [place] [address] [place] [address] Irvin Sam MD 08/16/2024 Telephone [facility] [address] [facility] [address] [place] [address] Chikis Cherry RPh from Last [...] Smokeless Tobacco: Never AUDIT-C Answer Date Recorded Frequency of Alcohol Consumption Not on file 10/28/2024 Q2: How many drinks containi ng alcohol do you have on a typical day when you are drinking? Patient does not drink Frequency of Binge Drinking Not on file 10/11 Comments Unknown Sex and Gender Information Value Date Recorded Sex Assigned at Not on file Legal Sex Female 10:25 AM APPLICATION ASSISTANT Gender Identity Female 04/04/2024 10:17 AM CDT Sexual Orientation Straight 04/04/2024 10 :17 AM CDT Obstetrics History Last Filed Vital Signs Vital Sign Reading Time Taken Comments Blood Pressure 122/66 10/28/2024 3:02 PM CDT Pulse 86 10/28/2024 3:02 PM CDT Temperature 36.7 C (98.1 F) 10/28/2024 3:02 PM CDT Respiratory Rate - - Oxygen Saturation 96% 10/23/2023 1:05 PM CDT Inhaled Oxygen Concentration - - Weight 120.2 kg (265 lb 1.6 oz) 10/28/2024 3:02 PM CDT Height 172.7 cm (5' 8 ) 10/28/2024 3:02 PM CDT Body Mass Index 40.31 10/28/2024 3:02 PM CDT Plan of Treatment Health Maintenance [...] Date/Time Associated Diagnosis Comments SCAN - LABS 10/09/2024 SERUM HEPATITIS C AB Routine 01/08/2013 2:20 AM CDT from Last 3 Months or Most Recently Relevant to Health Maintenance Results * SCAN - LABS (10/09/2024) us Provider Scanning Final Result * Serum Hepatitis C ab (01/08/2013 2:20 AM CDT) HCV ab Negative NEG HISTORICAL RESULTS Serum 01/08/2013 2:20 AM CDT Narrative HISTORICAL RESULTS - 01/08/2013 6:41 AM CDT LAB Frequency Standing Order? No Expiration Date: Interpretive Data If confirmation is required, call Laboratory Customer Service to request sample to be sent to [facility] for Hepatitis C Virus (HCV) RNA Detection and Quantitation by Real-Time Reverse Education Associate-PCR (RT-PCR). Current interpretive data was last revised on 2011 us Supa Bella MD LAB BLOOD ORDERABLES Final Result HISTORICAL RESULTS from Last 3 Months or Most Recently Relevant to Health Maintenance Insurance [facility] Care Teams Welt Sewer Relationship Specialty Start Date End Date Bev Osborne MD PCP - General Family Medicine 05/09/22
--- OUTSIDE RECORDS SUMMARY | 2024-10-31 08:06 | XMS_ITS | Encounter Summary ---
Author Organization [facility] Address [address] [place] [address] Phone Care Team Providers Care Wildlife Refuge Manager Name Role Phone Bev Osborne MD Primary Care Provider [phone] Encounter Details Date Type Department Care Team [...] on file Legal Sex Female 10:25 AM INSTALLER APPRENTICE Gender Identity Female 04/04/2024 10:17 AM CDT [...] on filedocumented in this encounter Care Teams Wildlife Refuge Manager Relationship Specialty Start Date End Date Bev Osborne MD PCP - General Family Medicine 05/09/22 documented as of this encounter
--- OUTSIDE RECORDS SUMMARY | 2024-10-31 08:06 | XMS_ITS | Encounter Summary ---
Author Organization [facility] Address [address] [place] [address] Phone Care Team Providers Care Skin Tanner Name Role Phone Bev Osborne MD Primary Care Provider [phone] Encounter Details Date Type Department Care Team (Late st Contact Info) Description 10/09/2024 Orders Only [facility] Scanning, Provider [...] on file Legal Sex Female 10:25 AM SALSA DANCE INSTRUCTOR Gender Identity Female 04/04/2024 10:17 AM CDT Sexual Orientation Straight 04/04/2024 10 :17 AM CDT documented as of this encounter Plan of Treatment Not on file documented as of this encounter Procedures Procedure Name Priority Date/Time Associated Diagnosis Comments SCAN - LABS 10/09/2024 documented in this encounter Results * SCAN - LABS (10/09/2024) us Provider Scanning Final Result documented in this encounter Visit Diagnoses Not on filedocumented in this encounter Care Teams Skin Tanner Relationship Specialty Start Date End Date Bev Osborne MD PCP - General Family Medicine 05/09/22 documented as of this encounter
--- OUTSIDE RECORDS SUMMARY | 2024-10-31 08:06 | XMS_ITS | Encounter Summary ---
Author Organization [facility] Address [address] [place] [address] Phone Care Team Providers Care Registration Coordinator Name Role Phone Bev Osborne MD Primary Care Provider [phone] Encounter Details Date Type Department Care Team (Late st Contact Info) Description 07/12/2022 Orders Only [facility] Scanning, Provider Social History Tobacco Use Types Packs/Day Years Used Date Smoking Tobacco: Never Comments Unknown Sex and Gender Information Value Date Recorded Sex Assigned at Not on file Legal Sex Female 10:25 AM STUDENT RECORDS COORDINATOR Gender Identity Female 04/04/2024 10:17 AM CDT [...] on filedocumented in this encounter Care Teams Registration Coordinator Relationship Specialty Start Date End Date Bev Osborne MD PCP - General Family Medicine 05/09/22 documented as of this encounter
--- OUTSIDE RECORDS SUMMARY | 2024-10-31 08:06 | XMS_ITS | Encounter Summary ---
Author Organization [facility] Address [address] [place] [address] Phone Care Team Providers Care Material Manager Name Role Phone Bev Osborne MD Primary Care Provider [phone] Encounter Details Date Type Department Care Team [...] on file Legal Sex Female 10:25 AM COT ASSEMBLER Gender Identity Female 04/04/2024 10:17 AM CDT [...] on filedocumented in this encounter Care Teams Material Manager Relationship Specialty Start Date End Date Bev Osborne MD PCP - General Family Medicine 05/09/22 documented as of this encounter
--- OUTSIDE RECORDS SUMMARY | 2024-10-31 08:06 | XMS_ITS | Encounter Summary ---
Author Organization [facility] Address [address] [place] [address] Phone Care Team Providers Care Improvement Advisor Name Role Phone Bev Osborne MD Primary Care Provider [phone] Encounter Details Date Type Department Care Team [...] on file Legal Sex Female 10:25 AM AREA DIRECTOR Gender Identity Female 04/04/2024 10:17 AM [...] on filedocumented in this encounter Care Teams Improvement Advisor Relationship Specialty Start Date End Date Bev Osborne MD PCP - General Family Medicine 05/09/22 documented as of this encounter
--- OUTSIDE RECORDS SUMMARY | 2024-10-31 08:06 | XMS_ITS | Encounter Summary ---
Author Organization [facility] Address [address] [place] [address] Phone Care Team Providers Care University Intern Name Role Phone Bev Osborne MD Primary Care Provider [phone] Encounter Details Date Type Department Care Team (Late st Contact Info) Description 10/31/2023 Orders Only [facility] Scanning, Provider [...] on file Legal Sex Female 10:25 AM LOSS MITIGATION SPECIALIST Gender Identity Female 04/04/2024 10:17 AM [...] on filedocumented in this encounter Care Teams University Intern Relationship Specialty Start Date End Date Bev Osborne MD PCP - General Family Medicine 05/09/22 documented as of this encounter
--- OUTSIDE RECORDS SUMMARY | 2024-10-31 08:06 | XMS_ITS | Encounter Summary ---
Author Organization [facility] Address [address] [place] [address] Phone Care Team Providers Care Email Manager Name Role Phone Bev Osborne MD Primary Care Provider [phone] Encounter Details Date Type Department Care Team [...] on file Legal Sex Female 10:25 AM PEOPLESOFT Gender Identity Female 04/04/2024 10:17 AM CDT [...] on filedocumented in this encounter Care Teams Email Manager Relationship Specialty Start Date End Date Bev Osborne MD PCP - General Family Medicine 05/09/22 documented as of this encounter
--- OUTSIDE RECORDS SUMMARY | 2024-10-31 08:06 | XMS_ITS | Encounter Summary ---
Author Organization [facility] Address [address] [place] [address] Phone Care Team Providers Care Psych Arnp Name Role Phone Carole Solomon MD Primary Care Provider [phone] Bev Osborne MD Primary Care Provider [phone] Encounter Details Date Type Department Care Team (Late st Contact Info) Description 12/28/2020 Orders Only [facility] Scanning, Provider Social History Tobacco Use Types Packs/Day Years Used Date Smoking Tobacco: Never Comments Unknown Sex and Gender Information Value Date Recorded Sex Assigned at Not on file Legal Sex Female 10:25 AM EMT DISPATCHER Gender Identity Female 04/04/2024 10:17 AM CDT [...] on filedocumented in this encounter Care Teams Psych Arnp Relationship Specialty Start Date End Date Carole Solomon MD [facility] [place] [address] PCP - General 06/08/17 05/08/22 Bev Osborne MD [address] [place] [address] PCP - General Family Medicine 05/09/22 documented as of this encounter
--- OUTSIDE RECORDS SUMMARY | 2024-10-31 08:06 | XMS_ITS | Referral Summary ---
Author Organization [facility] Address [address] [place] [address] Care Team Providers Care Marble Cleaner Name Role Phone Bev Osborne MD Primary Care Provider [phone] Encounters Date Type Department Care Team Description 10/28/2024 Orders Only [facility] Rheumatology [address] [facility] Office Building [address] [place] [address] Nida Vasquez MD Psoriatic arthritis (HCC) (Primary Dx); High risk medication use 10/28/2024 Orders Only [facility] Rheumatology [address] [facility] Office Building [address] [place] [address] Nida Vasquez MD Psoriatic arthritis (HCC) (Primary Dx); High risk medication use 10/28/2024 2:40 PM CDT Office Visit [facility] Rheumatology [address] [place] [address] Office [address] [place] [address] Nida Vasquez MD Psoriatic arthritis (HCC) (Primary Dx); High risk medication use 10/09/2024 Orders Only [facility] RHEUMATOLOGY Scanning, Provider 10/09/2024 Orders Only [facility] Rheumatology [address] [place] [address] [place] [address] Nida Vasquez MD Psoriatic arthritis (HCC) (Primary Dx) 09/04/2024 Telephone [facility] Rheumatology [address] [place] [address] [place] [address] Chasidy Avilez, RMQuinton Humira vs Adalimumab 09/04/2024 Orders Only [facility] Rheumatology [address] [facility] Medicine 5th [place] [address] [place] [address] Nida Vasquez MD 09/04/2024 Orders Only [facility] Rheumatology [address] [place] [address] [place] [address] Irvin Sam MD 08/16/[address] [facility] [address] [facility] [address] [place] [address] Chikis Cherry [facility] from Last 3 Months Allergies Active Allergy [...] ) Active Problems No known active problems Social [...] on file Legal Sex Female 10:25 AM PERCUSSION INSTRUMENT TUNER Gender Identity Female 04/04/2024 10:17 AM CDT [...] 10/28/2024 3:02 PM CDT Plan of Treatment Not on [...] RNA Detection and Quantitation by Real-Time Reverse Station Installation Supervisor-PCR (RT-PCR). Current interpretive data was last revised on 2011 us Supa Bella MD LAB BLOOD ORDERABLES Final Result HISTORICAL RESULTS from Last 3 Months or Most Recently Relevant to Health Maintenance Insurance [facility] H[facility]/PP[facility] Address: [address] [address] [facility] H[facility]/PPO Address: [address] [address] [place] [address] [facility] H[facility]/PPO Address: [place] [id number] [place] [address] Care Teams Marble Cleaner Relationship Specialty Start Date End Date Bev Osborne MD PCP - General Family Medicine 05/09/22
[2024-10-31 08:34] LABS: Alanine Aminotransferase 28 U/L (6-35); Albumin Level 4.1 g/dL (3.5-5.1); Alkaline Phosphatase 63 U/L (38-126); Aspartate Amino Transferase 36 U/L (14-36); Bilirubin,Total 0.7 mg/dL (0.2-1.3)
== END 2024-10-31 07:58 | disposition home or self-care (01) ==
LOC: ANHLAB 07:59
PROVIDERS: PCP Family Medicine; Visit Provider Internal Medicine
DX: L40.50 Arthropathic psoriasis, unspecified (principal); Z79.899 Other long term (current) drug therapy
CPT/HCPCS: 36415; 80076

== ENCOUNTER 2025-01-15 14:50 | Outpatient (CLI) | payer OTHER, SELFPAY ==
[2025-01-15 15:28] LABS: Basophils Absolute Auto 0.1 K/mm3 (0.0-0.1); Basophils Percent Auto 1.1 % (0.2-1.2); Eosinophils Absolute Auto 0.4 K/mm3 (0-0.3); Eosinophils Percent Auto 4.4 % (0-4.4); Hematocrit 46.1 % (37.0-47.0); Hemoglobin 15.1 g/dL (12.0-15.0); Immature Granulocyte Absolute 0.03 K/mm3 (0.00-0.031); Immature Granulocyte Percent A 0.4 % (0-0.5); Lymphocytes Percent Auto 45.9 % (18.3-44.2); Mean Corpuscular HGB Conc 32.8 g/dl (32-36); Mean Corpuscular Hemoglobin 32.8 pg (26-34); Mean Corpuscular Volume 100.2 fl (80-100); Mean Platelet Volume 10.6 fl (7.4-10.4); Monocytes Absolute Auto 0.4 K/mm3 (0.1-0.6); Monocytes Percent Auto 5.3 % (2.6-8.5); Neutrophils Absolute Auto 3.6 K/mm3 (1.3-6.7); Neutrophils Percent Auto 42.9 % (45.5-73.1); Platelet Count Result 211 k/mm3 (150-375); Red Cell Distribution Width 13.1 % (11.5-14.5); White Blood Count 8.3 K/mm3 (4.5-10.0)
--- OUTSIDE RECORDS SUMMARY | 2025-01-15 15:28 | XMS_ITS | Encounter Summary ---
Author Organization [facility] Address [address] [place] [address] Phone Care Team Providers Care Service Desk Analyst Name Role Phone Bev Osborne MD Primary Care Provider [phone] Encounter Details Date Type Department Care Team [...] on file Legal Sex Female 10:25 AM SMOKE CHASER Gender Identity Female 04/04/2024 10:17 AM CDT [...] on filedocumented in this encounter Care Teams Service Desk Analyst Relationship Specialty Start Date End Date Bev Osborne MD PCP - General Family Medicine 05/09/22 documented as of this encounter
--- OUTSIDE RECORDS SUMMARY | 2025-01-15 15:28 | XMS_ITS | Encounter Summary ---
Author Organization [facility] Address [address] [place] [address] Phone Care Team Providers Care Net Software Architect Name Role Phone Bev Osborne MD Primary Care Provider [phone] Encounter Details Date Type Department Care Team [...] on file Legal Sex Female 10:25 AM PROMOTIONS EXECUTIVE PRODUCER Gender Identity Female 04/04/2024 10:17 AM CDT [...] on filedocumented in this encounter Care Teams Net Software Architect Relationship Specialty Start Date End Date Bev Osborne MD PCP - General Family Medicine 05/09/22 documented as of this encounter
--- OUTSIDE RECORDS SUMMARY | 2025-01-15 15:28 | XMS_ITS | Encounter Summary ---
Author Organization [facility] Address [address] [place] [address] Phone Care Team Providers Care Fifth Grade Teacher Name Role Phone Bev Osborne MD Primary Care Provider [phone] Encounter Details Date Type Department Care Team [...] on file Legal Sex Female 10:25 AM RESIDENTIAL FRAMING CARPENTER Gender Identity Female 04/04/2024 10:17 AM CDT [...] on filedocumented in this encounter Care Teams Fifth Grade Teacher Relationship Specialty Start Date End Date Bev Osborne MD PCP - General Family Medicine 05/09/22 documented as of this encounter
--- OUTSIDE RECORDS SUMMARY | 2025-01-15 15:29 | XMS_ITS | Encounter Summary ---
Author Organization [facility] Address [address] [place] [address] Phone Care Team Providers Care Shore Man Name Role Phone Carole Solomon MD Primary Care Provider [phone] Bev Osborne MD Primary Care Provider [phone] Encounter Details Date Type Department Care Team (Late st Contact Info) Description 12/28/2020 Orders Only [facility] Scanning, Provider Social History Tobacco Use Types Packs/Day Years Used Date Smoking Tobacco: Never Comments Unknown Sex and Gender Information Value Date Recorded Sex Assigned at Not on file Legal Sex Female 10:25 AM CONTINUOUS WELD PIPE MILL SUPERVISOR Gender Identity Female 04/04/2024 10:17 AM [...] on filedocumented in this encounter Care Teams Shore Man Relationship Specialty Start Date End Date Carole Solomon MD [facility] [place] [address] PCP - General 06/08/17 05/08/22 Bev Osborne MD [address] [place] [address] PCP - General Family Medicine 05/09/22 documented as of this encounter
--- OUTSIDE RECORDS SUMMARY | 2025-01-15 15:29 | XMS_ITS | Encounter Summary ---
Author Organization [facility] Address [address] [place] [address] Phone Care Team Providers Care Manager Commercial Sales Name Role Phone Bev Osborne MD Primary Care Provider Encounter [...] on file Legal Sex Female 10:25 AM SANDFILL OPERATOR Gender Identity Female 04/04/2024 10:17 AM CDT [...] on filedocumented in this encounter Care Teams Manager Commercial Sales Relationship Specialty Start Date End Date Bev Osborne MD PCP - General Family Medicine 05/09/22 documented as of this encounter
--- OUTSIDE RECORDS SUMMARY | 2025-01-15 15:29 | XMS_ITS | Encounter Summary ---
Author Organization [facility] Address [address] [place] [address] Phone Care Team Providers Care Tunneling Machine Operator Name Role Phone Bev Osborne MD Primary Care Provider [phone] Encounter Details Date Type Department Care Team [...] on file Legal Sex Female 10:25 AM ENERGY TRADING ANALYST Gender Identity Female 04/04/2024 10:17 AM CDT [...] on filedocumented in this encounter Care Teams Tunneling Machine Operator Relationship Specialty Start Date End Date Bev Osborne MD PCP - General Family Medicine 05/09/22 documented as of this encounter
--- OUTSIDE RECORDS SUMMARY | 2025-01-15 15:29 | XMS_ITS | Clinical Summary ---
Author Organization [facility] Address [facility] [place] [address] Care Team Providers Care Teller Manager Name Role Phone Bve Osborne MD Primary Care Provider Allergies Active Allergy Reactions Criticality Noted Date [...] 1 spray into each nostril daily Active adalimumab-ada z 40 mg/0.4 mL pen injector Inject 40 mg/0.4 ml under the skin every 14 days 0.8 mL 5 5 Active folic acid (FOLVITE) 1 mg tablet Take 1 tablet (1 mg total) by mouth daily 90 tablet 3 5 Active methotrexate 2.5 mg tabletIndicati ons:Other - non-oncology Take 8 tablets (20 mg total) by mouth every 7 days 96 tablet 1 5 Active methotrexate 2.5 mg tablet TAKE 8 TABLETS BY MOUTH EVERY 7 DAYS 104 tablet 1 4 12/24/19 25 Discontinu ed(Reorder ) methotrexate 2.5 mg tabletIndicati ons:Other - non-oncology Take 8 tablets (20 mg total) by mouth every 7 days 96 tablet 1 5 01/13/20 25 Discontinu ed(Reorder ) Active Problems No known active problems Encounters Date Type Department Care Team Description 10/28/2024 2:40 PM CDT Office Visit [facility] Rheumatology [address] [place] [address] Medical Office Building [address] [place] [address] Nida Vasquez MD Psoriatic arthritis (HCC) (Primary Dx); High risk medication use 10/28/2024 Orders Only [facility] Rheumatology [address] [place] [address] Medical Office Building [address] [place] [address] Nida Vasquez MD Psoriatic arthritis (HCC) (Primary Dx); High risk medication use 10/28/2024 Orders Only [facility] Rheumatology [address] [place] [address] Medical Office Building [address] [place] [address] Nida Vasquez MD Psoriatic arthritis (HCC) (Primary Dx); High risk medication use from Last 3 Months Surgical History Surgery [...] on file Legal Sex Female 10:25 AM TEST AND RESEARCH REACTOR OPERATOR Gender Identity Female 04/04/2024 10:17 AM [...] 3:02 PM CDT Height 172.7 cm (5' 8) 10/28/2024 3:02 PM CDT Body Mass Index [...] risk series) 08/31/2021 08/03/2021, 07/13/2021 Influenza Vaccine (Season Ended) 2025 06/22/20 20 Hepatitis C Screening Completed 01/08/2013 Procedures Procedure [...] to request sample to be sent to [facility] for Hepatitis C Virus (HCV) RNA Detection and Quantitation by Real-Time Reverse Coat Joiner Lockstitch-PCR (RT-PCR). Current interpretive data was last revised on 2011 us Supa Bella MD LAB BLOOD ORDERABLES Final Result HISTORICAL RESULTS from Last 3 Months or Most Recently Relevant to Health Maintenance [facility] Address: [address] [address] [facility]PP[facility] Address: [address] [address] [place] [address] [place] [address] [facility]PP[facility] Address: [facility] [id number] [place] [address] Care Teams Teller Manager Relationship Specialty Start Date End Date Bev Osborne MD PCP - General Family Medicine 05/09/22
--- OUTSIDE RECORDS SUMMARY | 2025-01-15 15:29 | XMS_ITS | Encounter Summary ---
Author Organization [facility] Address [address] [place] [address] Phone Care Team Providers Care Softwood Faller Name Role Phone Bev Osborne MD Primary Care Provider [phone] Encounter Details Date Type Department Care Team [...] on file Legal Sex Female 10:25 AM DISPUTE RESOLUTION SPECIALIST Gender Identity Female 04/04/2024 10:17 AM [...] on filedocumented in this encounter Care Teams Softwood Faller Relationship Specialty Start Date End Date Bev Osborne MD PCP - General Family Medicine 05/09/22 documented as of this encounter
--- OUTSIDE RECORDS SUMMARY | 2025-01-15 15:29 | XMS_ITS | Referral Summary ---
Author Organization [facility] Address [address] [place] [address] Care Team Providers Care Clinical Informatics Manager Name Role Phone Bev Osborne MD Primary Care Provider [phone] Encounters Date Type Department Care Team Description 10/28/2024 Orders Only [facility] Rheumatology [address] [place] [address] [address] [place] [address] Nida Vasquez MD Psoriatic arthritis (HCC) (Primary Dx); High risk medication use 10/28/2024 Orders Only [facility] Rheumatology [address] [place] [address] Office [address] [place] [address] Nida Vasquez MD Psoriatic arthritis (HCC) (Primary Dx); High risk medication use 10/28/2024 2:40 PM CDT Office Visit [facility] Rheumatology [address] [place] [address] Office [address] [place] [address] Nida Vasquez MD Psoriatic arthritis (HCC) (Primary Dx); High risk medication use from Last 3 Months Allergies Active Allergy [...] you are drinking? Patient does not drink 5 Frequency of Binge Drinking Not on file 10/11 Comments Unknown Sex and Gender Information Value Date Recorded Sex Assigned at Not on file Legal Sex Female 10:25 AM DESULFURIZER MACHINE Gender Identity Female 04/04/2024 10:17 AM CDT [...] to request sample to be sent to [facility] for Hepatitis C Virus (HCV) RNA Detection and Quantitation by Real-Time Reverse Rn Medication-PCR (RT-PCR). Current interpretive data was last revised on 2011 Supa Bella MD LAB BLOOD ORDERABLES Final Result HISTORICAL RESULTS from Last 3 Months or Most Recently Relevant to Health Maintenance Insurance [facility] Address: [address] [address] [facility] Address: [address] [facility] Address: [place] [address] Care Teams Clinical Informatics Manager Relationship Specialty Start Date End Date Bev Osborne MD PCP - General Family Medicine 05/09/22
--- OUTSIDE RECORDS SUMMARY | 2025-01-15 15:29 | XMS_ITS | Encounter Summary ---
Author Organization [facility] Address [address] [place] [address] Phone Care Team Providers Care Auto Glass Installer Name Role Phone Bev Osborne MD Primary Care Provider [phone] Encounter Details Date Type Department Care Team (Late st Contact Info) Description 07/12/2022 Orders Only [facility] Scanning, Provider Social History Tobacco Use Types Packs/Day Years Used Date Smoking Tobacco: Never Comments Unknown Sex and Gender Information Value Date Recorded Sex Assigned at Not on file Legal Sex Female 10:25 AM CONCRETE FLOOR INSTALLER Gender Identity Female 04/04/2024 10:17 AM CDT [...] on filedocumented in this encounter Care Teams Auto Glass Installer Relationship Specialty Start Date End Date Bev Osborne MD PCP - General Family Medicine 05/09/22 documented as of this encounter
[2025-01-15 15:33] LABS: Add Urine Microscopic? NO; Appearance Urine Clear (Clear); Bilirubin Urine Negative (Negative); Blood Urine Negative (Negative); Color Urine Yellow (Yellow); Glucose Urine UA Negative (Negative); Ketones Urine Negative (Negative); Leukocyte Esterase Ur Negative LEU/UL (Negative); Nitrate Urine Negative (Negative); Protein Urine Negative (Negative); Specific Grav Ur 1.023 (1.001-1.035); Urobilinogen Urine 0.2 mg/dL (<2.0); pH Urine 5.5 (5.0-9.0)
[2025-01-15 16:02] LABS: Erythrocyte Sedimentation Rate 11 mm/hr (0-20)
[2025-01-15 16:54] LABS: Alanine Aminotransferase 50 U/L (6-35); Albumin Level 4.2 g/dL (3.5-5.1); Alkaline Phosphatase 63 U/L (38-126); Anion Gap 7 mmol/L (4-12); Aspartate Amino Transferase 58 U/L (14-36); Bilirubin Direct 0.1 mg/dL (0-0.3); Bilirubin Indirect 0.5 mg/dL (0-1.1); Bilirubin,Total 0.5 mg/dL (0.2-1.3); Blood Urea Nitrogen 18 mg/dL (7-17); CRP 0.8 mg/dL (<1.0); Calcium 9.3 mg/dL (8.4-10.2); Carbon Dioxide 26 mmol/L (22-30); Chloride 102 mmol/L (98-107); Estimated Glomerular Filt Rate 57; Glucose 82 mg/dL (65-110); Potassium 3.7 mmol/L (3.4-5.0); Sodium 135 mmol/L (137-145); Total Protein 7.6 g/dL (6.3-8.2)
== END 2025-01-15 14:51 | disposition home or self-care (01) ==
LOC: ANHLAB 14:52
PROVIDERS: PCP Family Medicine; Visit Provider Internal Medicine
DX: L40.50 Arthropathic psoriasis, unspecified (principal); Z79.899 Other long term (current) drug therapy
CPT/HCPCS: 36415; 80053; 81003; 82248; 85025; 85652; 86140

== ENCOUNTER 2025-01-19 07:02 | Outpatient (CLI) | payer OTHER, SELFPAY ==
--- NOTE | ~2025-01-19 | US_ITS ---
Limited Abdominal Sonogram: Real-time sonographic imaging of the right upper quadrant was performed. Clinical History: Right upper quadrant pain Findings: The liver appears normal with no evidence of mass lesion or bile duct dilatation. Main por bushra vein demonstrates normal direction of flow. The gallbladder is well distended, and appears normal with no evidence of gallstone or wall thickening. The common bile duct measures 5 mm. The visualize d pancreas, aorta, and IVC are unremarkable. Impression: No significant abnormality seen. Reviewed, dictated and finalized at location M. Impression: No significant abnormality seen.
== END 2025-01-19 07:03 | disposition home or self-care (01) ==
LOC: ANHIMG 07:04
PROVIDERS: PCP Family Medicine; Visit Provider Family Medicine
DX: R10.11 Right upper quadrant pain (principal)
CPT/HCPCS: 76705

== ENCOUNTER 2025-01-29 12:55 | Outpatient (CLI) | payer OTHER, SELFPAY ==
--- NOTE | ~2025-01-29 | XR_ITS ---
XR abdomen/kub 1V Ordering provider: Melani Vo PA-C History: . M54.9 - Dorsalgia, unspecified . Comparison: None. FINDINGS: BOWEL: Nonobstructive bowel gas pattern. ORGANOMEGALY: None. SIGNIFICANT PATHOLOGIC CALCIFICATIONS: None. OTHER: No free air is seen under the diaphragm. IMPRESSION: NO ACUTE ABDOMINAL FINDINGS. Reviewed, dictated and finalized at location A.
--- OUTSIDE RECORDS SUMMARY | 2025-01-29 13:16 | XMS_ITS | Encounter Summary ---
Author Organization [facility] Address [address] [place] [address] Phone Care Team Providers Care Medical Staff Services Coordinator Name Role Phone Bev Obsorne MD Primary Care Provider [phone] Encounter Details Date Type Department Care Team [...] on file Legal Sex Female 10:25 AM PHARMACEUTICAL DEVELOPMENT TECHNICIAN Gender Identity Female 04/04/2024 10:17 AM [...] on filedocumented in this encounter Care Teams Medical Staff Services Coordinator Relationship Specialty Start Date End Date Bev Osborne MD PCP - General Family Medicine 05/09/22 documented as of this encounter
--- OUTSIDE RECORDS SUMMARY | 2025-01-29 13:16 | XMS_ITS | Encounter Summary ---
Author Organization [facility] Address [address] [place] [address] Phone Care Team Providers Care Seed Cutter Name Role Phone Bev Osborne MD Primary Care Provider [phone] Encounter Details Date Type Department Care Team [...] on file Legal Sex Female 10:25 AM HORTICULTURE WORKER Gender Identity Female 04/04/2024 10:17 AM CDT [...] on filedocumented in this encounter Care Teams Seed Cutter Relationship Specialty Start Date End Date Bev Osborne MD PCP - General Family Medicine 05/09/22 documented as of this encounter
--- OUTSIDE RECORDS SUMMARY | 2025-01-29 13:16 | XMS_ITS | Encounter Summary ---
Author Organization [facility] Address [address] [place] [address] Phone Care Team Providers Care Trailhead Maintenance Worker Name Role Phone Bev Osborne MD Primary Care Provider [phone] Encounter Details Date Type Department Care Team (Late st Contact Info) Description 07/12/2022 Orders Only [facility] Scanning, Provider Social History Tobacco Use Types Packs/Day Years Used Date Smoking Tobacco: Never Comments Unknown Sex and Gender Information Value Date Recorded Sex Assigned at Not on file Legal Sex Female 10:25 AM SPORTS PHOTOGRAPHER Gender Identity Female 04/04/2024 10:17 AM CDT [...] on filedocumented in this encounter Care Teams Trailhead Maintenance Worker Relationship Specialty Start Date End Date Bev Osborne MD PCP - General Family Medicine 05/09/22 documented as of this encounter
--- OUTSIDE RECORDS SUMMARY | 2025-01-29 13:16 | XMS_ITS | Referral Summary ---
Author Organization [facility] Address [address] [place] [address] Care Team Providers Care Multi Needle Machine Operator Name Role Phone Bev Osborne MD Primary Care Provider [phone] Encounters Date Type Department Care Team Description 01/15/2025 Orders Only [facility] Scanning, Provider from Last 3 Months Allergies Active Allergy [...] tablet 1 5 Active methotrexate 2.5 mg tabletIndicati ons:Other [...] on file Legal Sex Female 10:25 AM TELEGRAPH SERVICE RATER Gender Identity Female 04/04/2024 10:17 AM CDT [...] Date/Time Associated Diagnosis Comments SCAN - LABS 01/15/2025 SERUM HEPATITIS C AB Routine 01/08/2013 2:20 AM CDT from Last 3 Months or Most Recently Relevant to Health Maintenance Results * SCAN - LABS (01/15/2025) us Provider Scanning Final Result * Serum Hepatitis C ab (01/08/2013 2:20 AM CDT) HCV ab Negative NEG HISTORICAL RESULTS Serum 01/08/2013 2:20 AM CDT Narrative HISTORICAL RESULTS - 01/08/2013 6:41 AM CDT LAB Frequency Standing Order? No Expiration Date: Interpretive Data If confirmation is required, call Laboratory Customer Service to request sample to be sent to [facility] for Hepatitis C Virus (HCV) RNA Detection and Quantitation by Real-Time Reverse Utility Forester-PCR (RT-PCR). Current interpretive data was last revised on 2011 us Supa Bella MD LAB BLOOD ORDERABLES Final Result HISTORICAL RESULTS from Last 3 Months or Most Recently Relevant to Health Maintenance Insurance [facility] H[facility]/PP[facility] Address: [address] [address] [facility] H[facility]/PPO Address: [address] [address] [place] [address] [facility] H[facility]/PPO Address: [facility] [address] [place] [address] Care Teams Multi Needle Machine Operator Relationship Specialty Start Date End Date Bev Osborne MD PCP - General Family Medicine 05/09/22
--- OUTSIDE RECORDS SUMMARY | 2025-01-29 13:16 | XMS_ITS | Encounter Summary ---
Author Organization [facility] Address [address] [place] [address] Phone Care Team Providers Care English As A Second Language Teacher Name Role Phone Bev Osborne MD Primary Care Provider [phone] Encounter Details Date Type Department Care Team [...] on file Legal Sex Female 10:25 AM HANDBELL CHOIR DIRECTOR Gender Identity Female 04/04/2024 10:17 AM [...] on filedocumented in this encounter Care Teams English As A Second Language Teacher Relationship Specialty Start Date End Date Bev Osborne MD PCP - General Family Medicine 05/09/22 documented as of this encounter
--- OUTSIDE RECORDS SUMMARY | 2025-01-29 13:16 | XMS_ITS | Encounter Summary ---
Author Organization [facility] Address [address] [place] [address] Phone Care Team Providers Care Button Buttonhole Marker Name Role Phone Bev Osborne MD Primary Care Provider [phone] Encounter Details Date Type Department Care Team [...] on file Legal Sex Female 10:25 AM SANTA'S HELPER Gender Identity Female 04/04/2024 10:17 AM CDT [...] on filedocumented in this encounter Care Teams Button Buttonhole Marker Relationship Specialty Start Date End Date Bev Osborne MD PCP - General Family Medicine 05/09/22 documented as of this encounter
--- OUTSIDE RECORDS SUMMARY | 2025-01-29 13:16 | XMS_ITS | Encounter Summary ---
Author Organization [facility] Address [address] [place] [address] Phone Care Team Providers Care Hand Binder Cutter Name Role Phone Bev Osborne MD Primary Care Provider [phone] Encounter Details Date Type Department Care Team [...] on file Legal Sex Female 10:25 AM VACUUM FILTER OPERATOR Gender Identity Female 04/04/2024 10:17 AM [...] on filedocumented in this encounter Care Teams Hand Binder Cutter Relationship Specialty Start Date End Date Bev Osborne MD PCP - General Family Medicine 05/09/22 documented as of this encounter
--- OUTSIDE RECORDS SUMMARY | 2025-01-29 13:16 | XMS_ITS | Encounter Summary ---
Author Organization [facility] Address [address] [place] [address] Phone Care Team Providers Care Extension Service Specialist In Charge Name Role Phone Bev Osborne MD Primary Care Provider [phone] Encounter Details Date Type Department Care Team [...] on file Legal Sex Female 10:25 AM CLAY MIXER Gender Identity Female 04/04/2024 10:17 AM CDT [...] on filedocumented in this encounter Care Teams Extension Service Specialist In Charge Relationship Specialty Start Date End Date Bev Osborne MD PCP - General Family Medicine 05/09/22 documented as of this encounter
--- OUTSIDE RECORDS SUMMARY | 2025-01-29 13:16 | XMS_ITS | Clinical Summary ---
Author Organization [facility] Address [facility] [place] [address] Care Team Providers Care Water Treatment Plant Supervisor Name Role Phone Bev Osborne MD Primary Care Provider Allergies Active [...] Department Care Team Description 01/15/2025 Orders Only [facility] Scanning, Provider from Last 3 Months Surgical History Surgery [...] file Legal Sex Female 10:25 AM SALES MANAGEMENT TRAINEE Gender Identity Female 04/04/2024 10:17 AM CDT [...] 07/13/2021 Influenza Vaccine (Season Ended) 2025 06/22/20 Hepatitis C Screening Completed 01/08/2013 Procedures Procedure [...] sample to be sent to [facility] for Hepatitis C Virus (HCV) RNA Detection and Quantitation by Real-Time Reverse Fire Extinguisher Repairer Inspector-PCR (RT-PCR). Current interpretive data was last revised on 2011 us Supa Bella MD LAB BLOOD ORDERABLES Final Result HISTORICAL RESULTS from Last 3 Months or Most Recently Relevant to Health Maintenance Insurance [facility] H[facility]/PPO Address: [place] [id number] [facility] HMO/PPO Address: [place] [address] [facility] HMO/PPO Address: [place] [address] Care Teams Water Treatment Plant Supervisor Relationship Specialty Start Date End Date Bev Osborne MD PCP - General Family Medicine 05/09/22
--- OUTSIDE RECORDS SUMMARY | 2025-01-29 13:16 | XMS_ITS | Encounter Summary ---
Author Organization [facility] Address [address] [place] [address] Phone Care Team Providers Care Flexographic Press Plate Setter Name Role Phone Carole Solomon MD Primary Care Provider [phone] Bev Osborne MD Primary Care Provider Encounter Details Date Type Department Care Team (Late st Contact Info) Description 12/28/2020 Orders Only [facility] Scanning, Provider Social History Tobacco Use Types Packs/Day Years Used Date Smoking Tobacco: Never Comments Unknown Sex and Gender Information Value Date Recorded Sex Assigned at Not on file Legal Sex Female 10:25 AM BRAND SPECIALIST Gender Identity Female 04/04/2024 10:17 AM [...] on filedocumented in this encounter Care Teams Flexographic Press Plate Setter Relationship Specialty Start Date End Date Carole Solomon MD [facility] [address] PCP - General 06/08/17 05/08/22 Bev Osborne MD [address] [place] [address] PCP - General Family Medicine 05/09/22 documented as of this encounter
== END 2025-01-29 12:56 | disposition home or self-care (01) ==
PROVIDERS: PCP Family Medicine; Visit Provider Student in an Organized Health Care Education/Training Program
DX: M54.9 Dorsalgia, unspecified (principal); R10.9 Unspecified abdominal pain
CPT/HCPCS: 74018

== ENCOUNTER 2025-02-02 15:24 | Outpatient (CLI) | payer OTHER, SELFPAY ==
--- NOTE | ~2025-02-02 | CT_ITS ---
CT of the Abdomen: Indication: Abdominal pain Technique: 2.5 mm axial scans were obtained through the abdomen following intravenous administration of 100 cc of Omnipaque 350. Dose reduction technique was used on this scan by utilizing automated ex posure control and iterative reconstruction technique. The dose-length product (DLP) was 879.65 mGy-c m. Findings: Scans through the lung bases are unremarkable. The liver, spleen, pancreas, gallbladder, adrenals and right kidney are within normal limits. Status post left nephrectomy. No evidence of aortic aneurysm. No lymphadenopathy. Visualized bowel loops are unremarkable. No ascites. Impression: No acute abnormalities seen. Status post left nephrectomy. Reviewed, dictated and finalized at location . Impression: No acute abnormalities seen. Status post left nephrectomy.
[2025-02-05 09:12] LABS: Estimated Glomerular Filt Rate 52
== END 2025-02-02 15:25 | disposition home or self-care (01) ==
LOC: ANHIMG 15:25
PROVIDERS: PCP Family Medicine; Visit Provider Family Medicine
DX: R10.9 Unspecified abdominal pain (principal); R19.7 Diarrhea, unspecified; R11.0 Nausea; Z90.5 Acquired absence of kidney
CPT/HCPCS: 36415; 74160; 82565; Q9967

== ENCOUNTER 2025-02-27 12:45 | Outpatient (CLI) | payer OTHER, SELFPAY ==
--- OUTSIDE RECORDS SUMMARY | 2025-02-27 12:48 | XMS_ITS | Encounter Summary ---
Author Organization [facility] Address [address] [place] [address] Phone Care Team Providers Care Racehorse Trainer Name Role Phone Bev Osborne MD Primary Care Provider [phone] Encounter Details Date Type Department Care Team (Late st Contact Info) Description 07/12/2022 Orders Only [facility] Scanning, Provider Social History Tobacco Use Types Packs/Day Years Used Date Smoking Tobacco: Never Comments Unknown Sex and Gender Information Value Date Recorded Sex Assigned at Not on file Legal Sex Female 10:25 AM FRIT MIXER Gender Identity Female 04/04/2024 10:17 AM [...] on filedocumented in this encounter Care Teams Racehorse Trainer Relationship Specialty Start Date End Date Bev Osborne MD PCP - General Family Medicine 05/09/22 documented as of this encounter
--- OUTSIDE RECORDS SUMMARY | 2025-02-27 12:48 | XMS_ITS | Clinical Summary ---
Author Organization [facility] Address [address] [place] [address] Care Team Providers Care Cat Driver Name Role Phone Bev Osborne MD Primary Care Provider [phone] Allergies Active Allergy Reactions Criticality Noted Date Comments Doxycycline Diarrhea Low 09/13/2021 Also hives Medications Bifidobacterium infantis (ALIGN) 4 mg capsule 1 capsule (4 mg total) Active ergocalciferol (VITAMIN D) 50,000 unit capsule Take 1 capsule (50,000 Units total) by mouth once a week Active cyclobenzaprine (FLEXERIL) 10 mg tablet Take 1 tablet [...] 1 spray into each nostril daily Active adalimumab-adaz 40 mg/0.4 mL pen injector Inject 40 mg/0.4 ml under the skin every 14 days 0.8 mL 5 5 Active folic acid (FOLVITE) 1 mg tablet Take 1 tablet (1 mg total) by mouth daily 90 tablet 3 5 Active methotrexate 2.5 mg tabletIndicatio ns:Other - non-oncology Take 8 tablets (20 mg total) by mouth every 7 days 96 tablet 1 5 Active Active Problems No known active problems Encounters [...] on file Legal Sex Female 10:25 AM PRODUCTION GRIP Gender Identity Female 04/04/2024 10:17 AM CDT [...] to request sample to be sent to [facility] for Hepatitis C Virus (HCV) RNA Detection and Quantitation by Real-Time Reverse Boarding Specialist-PCR (RT-PCR). Current interpretive data was last revised on 2011 us Supa Bella MD LAB BLOOD ORDERABLES Final Result HISTORICAL RESULTS from Last 3 Months or Most Recently Relevant to Health Maintenance Insurance [facility] Care Teams Cat Driver Relationship Specialty Start Date End Date Bev Osborne MD PCP - General Family Medicine 05/09/22
--- OUTSIDE RECORDS SUMMARY | 2025-02-27 12:48 | XMS_ITS | Referral Summary ---
Author Organization [facility] Address [address] [place] [address] Care Team Providers Care Prefinish Operator Name Role Phone Bev Osborne MD Primary Care Provider Encounters Date Type Department Care Team Description [...] Active Active Problems No known active problems Social [...] on file Legal Sex Female 10:25 AM BIOMED TECH Gender Identity Female 04/04/2024 10:17 AM CDT [...] to request sample to be sent to [facility] for Hepatitis C Virus (HCV) RNA Detection and Quantitation by Real-Time Reverse Business Practices Officer-PCR (RT-PCR). Current interpretive data was last revised on 2011 Supa Bella MD LAB BLOOD ORDERABLES Final Result HISTORICAL RESULTS from Last 3 Months or Most Recently Relevant to Health Maintenance Insurance [facility] Care Teams Prefinish Operator Relationship Specialty Start Date End Date Bev Osborne MD PCP - General Family Medicine 05/09/22
--- OUTSIDE RECORDS SUMMARY | 2025-02-27 12:48 | XMS_ITS | Encounter Summary ---
Author Organization [facility] Address [address] [place] [address] Phone Care Team Providers Care Police Officer Crime Prevention Name Role Phone Bev Osborne MD Primary [...] on file Legal Sex Female 10:25 AM RADIOLOGY SERVICES MANAGER Gender Identity Female 04/04/2024 10:17 AM CDT [...] on filedocumented in this encounter Care Teams Police Officer Crime Prevention Relationship Specialty Start Date End Date Bev Osborne MD PCP - General Family Medicine 05/09/22 documented as of this encounter
--- OUTSIDE RECORDS SUMMARY | 2025-02-27 12:48 | XMS_ITS | Encounter Summary ---
Author Organization [facility] Address [address] [place] [address] Phone Care Team Providers Care Physical Therapy Assistant Instructor Name Role Phone Bev Osborne MD Primary Care Provider [phone] Encounter Details Date Type Department Care Team [...] on file Legal Sex Female 10:25 AM DEAN OF EDUCATION Gender Identity Female 04/04/2024 10:17 AM CDT [...] on filedocumented in this encounter Care Teams Physical Therapy Assistant Instructor Relationship Specialty Start Date End Date Bev Osborne MD PCP - General Family Medicine 05/09/22 documented as of this encounter
--- OUTSIDE RECORDS SUMMARY | 2025-02-27 12:48 | XMS_ITS | Encounter Summary ---
Author Organization [facility] Address [address] [place] [address] Phone Care Team Providers Care Diesel Roller Operator Name Role Phone Bev Osborne MD Primary Care Provider [phone] Encounter Details Date Type Department Care Team [...] on file Legal Sex Female 10:25 AM CRAWLER CRANE OPERATOR Gender Identity Female 04/04/2024 10:17 AM [...] on filedocumented in this encounter Care Teams Diesel Roller Operator Relationship Specialty Start Date End Date Bev Osborne MD PCP - General Family Medicine 05/09/22 documented as of this encounter
--- OUTSIDE RECORDS SUMMARY | 2025-02-27 12:48 | XMS_ITS | Encounter Summary ---
Author Organization [facility] Address [address] [place] [address] Phone Care Team Providers Care Payroll Secretary Name Role Phone Bev Osborne MD Primary Care Provider [phone] Encounter Details Date Type Department Care Team [...] on file Legal Sex Female 10:25 AM PRIEST Gender Identity Female 04/04/2024 10:17 AM CDT [...] on filedocumented in this encounter Care Teams Payroll Secretary Relationship Specialty Start Date End Date Bev Osborne MD PCP - General Family Medicine 05/09/22 documented as of this encounter
--- OUTSIDE RECORDS SUMMARY | 2025-02-27 12:48 | XMS_ITS | Encounter Summary ---
Author Organization [facility] Address [address] [place] [address] Phone Care Team Providers Care Director Case Name Role Phone Bev Osborne MD Primary Care Provider [phone] Encounter Details Date Type Department Care Team [...] on file Legal Sex Female 10:25 AM NEON GLASS BENDER Gender Identity Female 04/04/2024 10:17 AM CDT [...] on filedocumented in this encounter Care Teams Director Case Relationship Specialty Start Date End Date Bev Osborne MD PCP - General Family Medicine 05/09/22 documented as of this encounter
--- OUTSIDE RECORDS SUMMARY | 2025-02-27 12:48 | XMS_ITS | Encounter Summary ---
Author Organization [facility] Address [address] [place] [address] Phone Care Team Providers Care Gear Nicker Name Role Phone Carole Solomon MD Primary Care Provider [phone] Bev Osborne MD Primary Care Provider [phone] Encounter Details Date Type Department Care Team (Late st Contact Info) Description 12/28/2020 Orders Only [facility]HEUMATOLOG[facility] Scanning, Provider Social History Tobacco Use Types Packs/Day Years Used Date Smoking Tobacco: Never Comments Unknown Sex and Gender Information Value Date Recorded Sex Assigned at Not on file Legal Sex Female 10:25 AM WELDING MACHINE OPERATOR GAS Gender Identity Female 04/04/2024 10:17 AM CDT [...] on filedocumented in this encounter Care Teams Gear Nicker Relationship Specialty Start Date End Date Carole Solomon MD [facility] [place] [address] PCP - General 06/08/17 05/08/22 Bev Osborne MD [facility] [place], [place] [id number] PCP - General Family Medicine 05/09/22 documented as of this encounter
--- OUTSIDE RECORDS SUMMARY | 2025-02-27 12:48 | XMS_ITS | Encounter Summary ---
Author Organization [facility] Address [address] [place] [address] Phone Care Team Providers Care Freezer Worker Name Role Phone Bev Osborne MD Primary Care Provider [phone] Encounter Details Date Type Department Care Team (Late st Contact Info) Description 05/05/2024 Orders Only [facility] RHEUMATOLOGY Scanning, Provider [...] on file Legal Sex Female 10:25 AM LONG LINE TEAMSTER Gender Identity Female 04/04/2024 10:17 AM CDT [...] on filedocumented in this encounter Care Teams Freezer Worker Relationship Specialty Start Date End Date Bev Osborne MD PCP - General Family Medicine 05/09/22 documented as of this encounter
[2025-02-27 13:40] LABS: Iron 90 ug/dL (37-170)
[2025-02-27 13:42] LABS: INR 1.0; Prothrombin Time 13.4 Seconds (11.1-14.7)
[2025-02-27 13:50] LABS: Percent Iron Saturation 35 % (20-50)
[2025-02-27 13:51] LABS: Alanine Aminotransferase 34 U/L (6-35); Albumin Level 4.0 g/dL (3.5-5.1); Alkaline Phosphatase 66 U/L (38-126); Aspartate Amino Transferase 41 U/L (14-36); Bilirubin,Total 0.5 mg/dL (0.2-1.3); Total Protein 7.4 g/dL (6.3-8.2)
[2025-02-27 14:00] LABS: Immunoglobulin G 1395 mg/dL (700-1600)
[2025-02-27 14:14] LABS: Thyroid Stimulating Hormone Reflex 1.020 uIU/mL (0.465-4.68)
[2025-02-27 14:17] LABS: Hepatitis B Surface Antigen Negative (Negative)
[2025-02-27 14:18] LABS: Ferritin 124.00 ng/mL (11.1-264)
[2025-02-27 14:22] LABS: Hepatitis B Core IgM Result Negative (Negative)
[2025-02-27 15:56] LABS: HAV RESULT Negative (Negative)
[2025-02-28 07:08] LABS: GGT 24 IU/L (0-60)
[2025-02-28 08:08] LABS: Hep B Core Ab, Total Negative (Negative)
[2025-02-28 09:08] LABS: Hep A Ab, Total Negative (Negative)
[2025-03-03 07:09] LABS: Deamidated Gliadin Abs, IgA 5 units (0-19); Deamidated Gliadin Abs, IgG 3 units (0-19); Immunoglobulin A, Qn 287 mg/dL (87-352)
[2025-03-03 10:08] LABS: ANA by IFA Rfx Titer/Pattern Positive (.)
[2025-03-03 12:08] LABS: ALT (SGPT) P5P 30 IU/L (0-40); AST (SGOT) P5P 25 IU/L (0-40); Alpha 2-Macroglobulins, Qn 237 mg/dL (110-276); Bilirubin, Total 0.2 mg/dL (0.0-1.2); Cholesterol, Total 210 mg/dL (100-199); GGT 26 IU/L (0-60); Glucose 96 mg/dL (70-99); Triglycerides 204 mg/dL (0-149)
== END 2025-02-27 12:46 | disposition home or self-care (01) ==
LOC: ANHLAB 12:46
PROVIDERS: PCP Family Medicine; Visit Provider Nurse Practitioner
DX: R19.4 Change in bowel habit (principal); R19.7 Diarrhea, unspecified; R10.9 Unspecified abdominal pain; K21.9 Gastro-esophageal reflux disease without esophagitis; R14.0 Abdominal distension (gaseous); R13.10 Dysphagia, unspecified; R74.8 Abnormal levels of other serum enzymes; E78.2 Mixed hyperlipidemia; E55.9 Vitamin D deficiency, unspecified
CPT/HCPCS: 36415; 80074; 80076; 82103; 82172; 82247; 82390; 82465; 82728; 82784; 82947; 82977; 83010; 83540; 83550; 83883; 84443; 84450; 84460; 84478; 85610; 86015; 86038; 86231; 86258; 86376; 86381; 86704; 86708

== ENCOUNTER 2025-02-28 06:53 | Outpatient (NON) | payer OTHER, SELFPAY ==
--- OUTSIDE RECORDS SUMMARY | 2025-02-28 06:55 | XMS_ITS | Encounter Summary ---
Author Organization [facility] Address [address] [place] [address] Phone Care Team Providers Care Road Design Engineer Name Role Phone Bev Osborne MD Primary Care Provider [phone] Encounter Details Date Type Department Care Team [...] on file Legal Sex Female 10:25 AM LEAD BURNER APPRENTICE Gender Identity Female 04/04/2024 10:17 AM [...] on filedocumented in this encounter Care Teams Road Design Engineer Relationship Specialty Start Date End Date Bev Osborne MD PCP - General Family Medicine 05/09/22 documented as of this encounter
--- OUTSIDE RECORDS SUMMARY | 2025-02-28 06:55 | XMS_ITS | Encounter Summary ---
Author Organization [facility] Address [address] [place] [address] Phone Care Team Providers Care Case Advocate Name Role Phone Bev Osborne MD Primary Care Provider [phone] Encounter Details Date Type Department Care Team [...] on file Legal Sex Female 10:25 AM NETWORK RELAY TESTER Gender Identity Female 04/04/2024 10:17 AM CDT [...] on filedocumented in this encounter Care Teams Case Advocate Relationship Specialty Start Date End Date Bev Osborne MD PCP - General Family Medicine 05/09/22 documented as of this encounter
--- OUTSIDE RECORDS SUMMARY | 2025-02-28 06:55 | XMS_ITS | Referral Summary ---
Author Organization [facility] Address [address] [place] [address] Care Team Providers Care Contract Negotiator Name Role Phone Bev Osborne MD Primary Care Provider [phone] Encounters Date Type Department Care Team Description [...] on file Legal Sex Female 10:25 AM VP MARKETING Gender Identity Female 04/04/2024 10:17 AM CDT [...] request sample to be sent to [facility] for Hepatitis C Virus (HCV) RNA Detection and Quantitation by Real-Time Reverse Manager Of Case-PCR (RT-PCR). Current interpretive data was last revised on 2011 Supa Bella MD LAB BLOOD ORDERABLES Final Result HISTORICAL RESULTS from Last 3 Months or Most Recently Relevant to Health Maintenance Insurance [facility] Care Teams Contract Negotiator Relationship Specialty Start Date End Date Bev Osborne MD PCP - General Family Medicine 05/09/22
--- OUTSIDE RECORDS SUMMARY | 2025-02-28 06:55 | XMS_ITS | Encounter Summary ---
Author Organization [facility] Address [address] [place] [address] Phone Care Team Providers Care Mission Analyst Name Role Phone Bev Osborne MD Primary Care Provider [phone] Encounter Details Date Type Department Care Team (Late st Contact Info) Description 07/12/2022 Orders Only [facility] RHEUMATOLOGY Scanning, Provider Social History Tobacco Use Types Packs/Day Years Used Date Smoking Tobacco: Never Comments Unknown Sex and Gender Information Value Date Recorded Sex Assigned at Not on file Legal Sex Female 10:25 AM SENIOR SQL DBA Gender Identity Female 04/04/2024 10:17 AM CDT [...] on filedocumented in this encounter Care Teams Mission Analyst Relationship Specialty Start Date End Date Bev Osborne MD PCP - General Family Medicine 05/09/22 documented as of this encounter
--- OUTSIDE RECORDS SUMMARY | 2025-02-28 06:55 | XMS_ITS | Encounter Summary ---
Author Organization [facility] Address [address] [place] [address] Phone Care Team Providers Care Gimp Tacker Name Role Phone Bev Osborne MD Primary Care Provider [phone] Encounter Details Date Type Department Care Team [...] on file Legal Sex Female 10:25 AM ORTHOPEDIC MECHANIC Gender Identity Female 04/04/2024 10:17 AM CDT [...] on filedocumented in this encounter Care Teams Gimp Tacker Relationship Specialty Start Date End Date Bev Osborne MD PCP - General Family Medicine 05/09/22 documented as of this encounter
--- OUTSIDE RECORDS SUMMARY | 2025-02-28 06:55 | XMS_ITS | Encounter Summary ---
Author Organization [facility] Address [address] [place] [address] Phone Care Team Providers Care Tow Feeder Name Role Phone Bev Osborne MD Primary Care Provider [phone] Encounter Details Date Type Department Care Team [...] on file Legal Sex Female 10:25 AM GOLD BUYER Gender Identity Female 04/04/2024 10:17 AM CDT [...] on filedocumented in this encounter Care Teams Tow Feeder Relationship Specialty Start Date End Date Bev Osborne MD PCP - General Family Medicine 05/09/22 documented as of this encounter
--- OUTSIDE RECORDS SUMMARY | 2025-02-28 06:55 | XMS_ITS | Clinical Summary ---
Author Organization [facility] Address [address] [place] [address] Care Team Providers Care Data Analytics Developer Name Role Phone Bev Osborne MD Primary Care Provider [phone] Allergies Active Allergy Reactions Criticality Noted Date [...] on file Legal Sex Female 10:25 AM HEAD OF PRECISION TARGETING Gender Identity Female 04/04/2024 10:17 AM CDT [...] to request sample to be sent to [facility] for Hepatitis C Virus (HCV) RNA Detection and Quantitation by Real-Time Reverse River Rat-PCR (RT-PCR). Current interpretive data was last revised on 2011 us Supa Bella MD LAB BLOOD ORDERABLES Final Result HISTORICAL RESULTS from Last 3 Months or Most Recently Relevant to Health Maintenance Insurance [facility] Care Teams Data Analytics Developer Relationship Specialty Start Date End Date Bev Osborne MD PCP - General Family Medicine 05/09/22
--- OUTSIDE RECORDS SUMMARY | 2025-02-28 06:55 | XMS_ITS | Encounter Summary ---
Author Organization [facility] Address [address] [place] [address] Phone Care Team Providers Care Stereoplotter Operator Name Role Phone Carole Solomon MD Primary Care Provider [phone] Bev Osborne MD Primary Care Provider [phone] Encounter Details Date Type Department Care Team (Late st Contact Info) Description 12/28/2020 Orders Only [facility] IM RHEUMATOLOGY Scanning, Provider Social History Tobacco Use Types Packs/Day Years Used Date Smoking Tobacco: Never Comments Unknown Sex and Gender Information Value Date Recorded Sex Assigned at Not on file Legal Sex Female 10:25 AM JAZZ SINGER Gender Identity Female 04/04/2024 10:17 AM CDT [...] on filedocumented in this encounter Care Teams Stereoplotter Operator Relationship Specialty Start Date End Date Carole Solomon MD [facility] [place] [address] PCP - General 06/08/17 05/08/22 Bev Osborne MD [facility] [place], [place] [id number] PCP - General Family Medicine 05/09/22 documented as of this encounter
--- OUTSIDE RECORDS SUMMARY | 2025-02-28 06:55 | XMS_ITS | Encounter Summary ---
Author Organization [facility] Address [address] [place] [address] Phone Care Team Providers Care Theoretical Physicist Name Role Phone Bev Osborne MD Primary Care Provider [phone] Encounter Details Date Type Department Care Team [...] on file Legal Sex Female 10:25 AM COOKER PROCESS CHEESE Gender Identity Female 04/04/2024 10:17 AM CDT [...] on filedocumented in this encounter Care Teams Theoretical Physicist Relationship Specialty Start Date End Date Bev Osborne MD PCP - General Family Medicine 05/09/22 documented as of this encounter
--- OUTSIDE RECORDS SUMMARY | 2025-02-28 06:55 | XMS_ITS | Encounter Summary ---
Author Organization [facility] Address [address] [place] [address] Phone Care Team Providers Care Audio Production Manager Name Role Phone Bev Osborne MD Primary Care Provider [phone] Encounter Details Date Type Department Care Team [...] on file Legal Sex Female 10:25 AM PAINT ROLLER COVER MACHINE SETTER Gender Identity Female 04/04/2024 10:17 AM CDT [...] on filedocumented in this encounter Care Teams Audio Production Manager Relationship Specialty Start Date End Date Bev Osborne MD PCP - General Family Medicine 05/09/22 documented as of this encounter
[2025-02-28 10:14] LABS: Toxigenic C. Diff NEGATIVE (NEGATIVE)
[2025-03-03 01:07] LABS: Pancreatic Elastase, Fecal >800 (>200)
[2025-03-04 15:09] LABS: Calprotectin, Fecal 16 ug/g (0-120)
== END 2025-02-28 06:54 | disposition home or self-care (01) ==
LOC: ANHLAB 06:54
PROVIDERS: PCP Family Medicine; Visit Provider Nurse Practitioner
DX: R19.4 Change in bowel habit (principal); R19.7 Diarrhea, unspecified; R10.9 Unspecified abdominal pain; K21.9 Gastro-esophageal reflux disease without esophagitis; R14.0 Abdominal distension (gaseous); R13.10 Dysphagia, unspecified; R74.8 Abnormal levels of other serum enzymes
CPT/HCPCS: 82653; 83993; 87045; 87046; 87427; 87493

== ENCOUNTER 2025-04-02 16:02 | Outpatient (CLI) | payer OTHER, SELFPAY ==
--- NOTE | ~2025-04-02 | MM_ITS ---
EXAMINATION: MM screening [facility] BI w [facility] HISTORY: Screening mammogram TECHNIQUE: Craniocaudal and mediolateral oblique 3-D tomosynthesis images were obtained and synthetic 2-D images were generated. CAD analysis was submitted and interpreted. COMPARISON: 03/22/2024, 11/25/2022, 10/26/2021 BREAST PARENCHYMAL COMPOSITION:Not Dense. There are scattered areas of fibroglandular density. FINDINGS: No suspicious mass, calcification, or architectural distortion are identified in either breast to suggest malignancy. There has been no suspicious interval change. IMPRESSION: No mammographic evidence of malignancy. Recommend routine screening mammography in one year. BI-RADS Category 1: Negative Reviewed, dictated and finalized at location .
--- OUTSIDE RECORDS SUMMARY | 2025-04-02 16:07 | XMS_ITS | Encounter Summary ---
Author Organization [facility] Address [address] [place] [address] Phone Care Team Providers Care Networks Computer Consultant Name Role Phone Bev Osborne MD Primary Care Provider [phone] Encounter Details Date Type Department Care Team [...] on file Legal Sex Female 10:25 AM EPIC AMBULATORY ANALYSTS Gender Identity Female 04/04/2024 10:17 AM CDT [...] on filedocumented in this encounter Care Teams Networks Computer Consultant Relationship Specialty Start Date End Date Bev Osborne MD PCP - General Family Medicine 05/09/22 documented as of this encounter
--- OUTSIDE RECORDS SUMMARY | 2025-04-02 16:07 | XMS_ITS | Encounter Summary ---
Author Organization [facility] Address [address] [place] [address] Phone Care Team Providers Care Bed Rubber Name Role Phone Bev Osborne MD Primary Care Provider [phone] Encounter Details Date Type Department Care Team [...] on file Legal Sex Female 10:25 AM TRACK SUPERVISOR Gender Identity Female 04/04/2024 10:17 AM [...] on filedocumented in this encounter Care Teams Bed Rubber Relationship Specialty Start Date End Date Bev Osborne MD PCP - General Family Medicine 05/09/22 documented as of this encounter
--- OUTSIDE RECORDS SUMMARY | 2025-04-02 16:07 | XMS_ITS | Encounter Summary ---
Author Organization [facility] Address [address] [place] [address] Phone Care Team Providers Care Coach Cleaner Name Role Phone Bev Osborne MD Primary Care Provider [phone] Encounter Details Date Type Department Care Team [...] on file Legal Sex Female 10:25 AM AUTOMOTIVE PARTS COUNTERPERSON Gender Identity Female 04/04/2024 10:17 AM CDT [...] on filedocumented in this encounter Care Teams Coach Cleaner Relationship Specialty Start Date End Date Bev Osborne MD PCP - General Family Medicine 05/09/22 documented as of this encounter
--- OUTSIDE RECORDS SUMMARY | 2025-04-02 16:07 | XMS_ITS | Encounter Summary ---
Author Organization [facility] Address [address] [place] [address] Phone Care Team Providers Care Senior Manager Asset Protection Name Role Phone Bev Osborne MD Primary Care Provider [phone] Encounter Details Date Type Department Care Team (Late st Contact Info) Description 07/12/2022 Orders Only [facility] RHEUMATOLOGY Scanning, Provider Social History Tobacco Use Types Packs/Day Years Used Date Smoking Tobacco: Never Comments Unknown Sex and Gender Information Value Date Recorded Sex Assigned at Not on file Legal Sex Female 10:25 AM FLAG SIGNALMAN Gender Identity Female 04/04/2024 10:17 AM CDT [...] filedocumented in this encounter Care Teams Senior Manager Asset Protection Relationship Specialty Start Date End Date Bev Osborne MD PCP - General Family Medicine 05/09/22 documented as of this encounter
--- OUTSIDE RECORDS SUMMARY | 2025-04-02 16:07 | XMS_ITS | Clinical Summary ---
Author Organization [facility] Address [address] [place] [address] Care Team Providers Care Pneumatic Tool Operator Name Role Phone Bev Osborne MD Primary Care Provider [phone] Allergies Active Allergy Reactions Criticality Noted Date [...] total) by mouth daily 90 tablet 3 10/29/19 25 Active methotrexate 2.5 mg tabletIndicati ons:Other - non-oncology Take 8 tablets (20 mg total) by mouth every 7 days 96 tablet 1 01/13/20 25 Active adalimumab-ada z (Hyrimoz,CF, Pen) 40 mg/0.4 mL pen injector INJECT 1 PEN UNDER THE SKIN EVERY 14 DAYS 1.6 mL 5 03/05/20 25 Active adalimumab-ada z 40 mg/0.4 mL pen injector Inject 40 mg/0.4 ml under the skin every 14 days 0.8 mL 5 09/29/19 25 025 Discontinued Active Problems No known active problems [...] on file Legal Sex Female 10:25 AM CREEL SELECTOR Gender Identity Female 04/04/2024 10:17 AM CDT [...] series) 08/31/2021 08/03/2021, 07/13/2021 Influenza Vaccine (#1) 2025 06/22/2020 Hepatitis C Screening Completed 01/08/2013 Procedures [...] to request sample to be sent to [facility] for Hepatitis C Virus (HCV) RNA Detection and Quantitation by Real-Time Reverse Coupler-PCR (RT-PCR). Current interpretive data was last revised on 2011 us Supa Bella MD LAB BLOOD ORDERABLES Final Result HISTORICAL RESULTS from Last 3 Months or Most Recently Relevant to Health Maintenance Insurance [facility] Address: [place] [address] [facility] HMO/PPO Address[place] [address] [facility] HMO/PPO Address: [place] [address] Care Teams Pneumatic Tool Operator Relationship Specialty Start Date End Date Bev Osborne MD PCP - General Family Medicine 05/09/22
--- OUTSIDE RECORDS SUMMARY | 2025-04-02 16:07 | XMS_ITS | Encounter Summary ---
Author Organization [facility] Address [address] [place] [address] Phone Care Team Providers Care Hybrid Tester Name Role Phone Bev Osborne MD Primary Care Provider [phone] Encounter Details Date Type Department Care Team [...] on file Legal Sex Female 10:25 AM AIRCRAFT CHARTER DISPATCHER Gender Identity Female 04/04/2024 10:17 AM [...] on filedocumented in this encounter Care Teams Hybrid Tester Relationship Specialty Start Date End Date Bev Osborne MD PCP - General Family Medicine 05/09/22 documented as of this encounter
--- OUTSIDE RECORDS SUMMARY | 2025-04-02 16:07 | XMS_ITS | Encounter Summary ---
Author Organization [facility] Address [address] [place] [address] Phone Care Team Providers Care Oil Field Operator Name Role Phone Bev Osborne MD Primary Care Provider [phone] Encounter Details Date Type Department Care Team [...] on file Legal Sex Female 10:25 AM REGIONAL TRAINER Gender Identity Female 04/04/2024 10:17 AM CDT [...] on filedocumented in this encounter Care Teams Oil Field Operator Relationship Specialty Start Date End Date Bev Osborne MD PCP - General Family Medicine 05/09/22 documented as of this encounter
--- OUTSIDE RECORDS SUMMARY | 2025-04-02 16:07 | XMS_ITS | Encounter Summary ---
Author Organization [facility] Address [address] [place] [address] Phone Care Team Providers Care Maintenance Team Member Name Role Phone Carole Solomon MD Primary Care Provider [phone] Bev Osborne MD Primary Care Provider [phone] Encounter Details Date Type Department Care Team (Late st Contact Info) Description 12/28/2020 Orders Only [facility] Scanning, Provider Social History Tobacco Use Types Packs/Day Years Used Date Smoking Tobacco: Never Comments Unknown Sex and Gender Information Value Date Recorded Sex Assigned at Not on file Legal Sex Female 10:25 AM PLATE CLEANER Gender Identity Female 04/04/2024 10:17 AM CDT [...] on filedocumented in this encounter Care Teams Maintenance Team Member Relationship Specialty Start Date End Date Carole Solomon MD [facility] [place] [address] PCP - General 06/08/17 05/08/22 Bev Osborne MD [facility] [place], [place] [id number] PCP - General Family Medicine 05/09/22 documented as of this encounter
--- OUTSIDE RECORDS SUMMARY | 2025-04-02 16:07 | XMS_ITS | Encounter Summary ---
Author Organization [facility] Address [address] [place] [address] Phone Care Team Providers Care Flexible Nanny Name Role Phone Bev Osborne MD Primary Care Provider [phone] Encounter Details Date Type Department Care Team [...] on file Legal Sex Female 10:25 AM CHIEF INVESTIGATOR Gender Identity Female 04/04/2024 10:17 AM CDT [...] on filedocumented in this encounter Care Teams Flexible Nanny Relationship Specialty Start Date End Date Bev Osborne MD PCP - General Family Medicine 05/09/22 documented as of this encounter
== END 2025-04-02 16:03 | disposition home or self-care (01) ==
LOC: ANHFOHIMG 16:05
PROVIDERS: PCP Family Medicine; Visit Provider Student in an Organized Health Care Education/Training Program
DX: Z12.31 Encounter for screening mammogram for malignant neoplasm of breast (principal)
CPT/HCPCS: 77063; 77067

== ENCOUNTER 2025-05-01 00:35 | Day surgery (SDC) | payer OTHER, SELFPAY ==
[2025-04-16 13:23] VITALS: BMI 39.5
[2025-05-01 11:30] VITALS: BP 130/86; PULSE 86; RESP 16; TEMP 36.8; O2SAT 97
[2025-05-01] MEDS: LACTATED RINGERS 1,000 ML 150 ML IV CONT (11:38)
--- NOTE | 2025-05-01 12:07 | WPDANESEPPF ---
Anes - Initial Pre Proc Eval Procedure: Operation Date: 05/01/25 12:30 Proposed Procedures p EGD & Diagnostic Colonoscopy - Juan Pablo Donaldson MD Date/Time: 05/01/25 12:07 Surgeon: Juan Pablo Donaldson MD Pre Op Diagnosis: Dysphagia, GERD, Diarrhea Patient Data Age: 49 Gender: F Height: 1.73 m Weight: 117.9 kg Last Vital Signs Temp 98.2 F 05/01/25 11:30 Pulse 86 05/01/25 11:30 Resp 16 05/01/25 11:30 BP 130/86 05/01/25 11:30 Pulse Ox 97 05/01/25 11:30 O2 Del Method Room Air 05/01/25 11:30 Allergies Allergy/AdvReac Type Severity Reaction Status Date / Time corn Allergy Severe facial Verified 05/01/25 11:23 flushing and tingling gluten Allergy Unknown Gastrointestinal Verified 05/01/25 11:23 Upset doxycycline AdvReac Severe Nausea and Verified 05/01/25 11:23 Vomiting Home Medications ?Medication ?Instructions ?Recorded ?Confirmed ?Type fexofenadine 60 mg tablet (Glenna 60 mg PO Q12H 08/12/20 05/01/25 History Allergy) folic acid 1 mg tablet 1 mg PO DAILY #90 tabs 03/29/21 05/01/25 Rx fluticasone propionate 50 1 spray intranasal DAILY #15.8 mL 09/05/21 05/01/25 Rx mcg/actuation nasal spray,suspension (Flonase Allergy Relief) methotrexate sodium 2.5 mg tablet 15 mg PO WEEKLY 12/14/21 05/01/25 History adalimumab 40 mg/0.8 mL See Rx Instructions subcut .COMPLEX 07/11/22 05/01/25 History subcutaneous syringe kit (Humira) cyclobenzaprine 10 mg tablet 10 mg PO TID #90 tabs 12/07/22 05/01/25 Rx sertraline 100 mg tablet See Rx Instructions .Route 06/06/24 05/01/25 Rx .COMPLEX #135 tabs alprazolam 0.5 mg tablet 0.5 mg PO TID PRN anxiety #90 tabs 06/10/24 04/23/25 Rx albuterol sulfate 90 mcg/actuation 1 inh inhalation Q4H PRN shortness 09/22/24 04/23/25 Rx aerosol inhaler (Ventolin HFA) of breath or wheezing #8.5 grams sumatriptan succinate 50 mg tablet 50 mg PO .COMPLEX #10 tabs 10/01/24 05/01/25 Rx ergocalciferol (vitamin D2) 1,250 See Rx Instructions .Route 11/14/24 05/01/25 Rx mcg (50,000 unit) capsule .COMPLEX #12 caps dicyclomine 10 mg capsule 10 mg PO .every 6 hours PRN 02/27/25 04/23/25 Rx abdominal pain #30 caps omeprazole 40 mg capsule,delayed 40 mg PO DAILY #30 caps 02/27/25 05/01/25 Rx release Patient hx anesthesia problems: none Family hx anesthesia problems: none Results Review: All pre-operative results and documents have been reviewed as part of the pre-operative evaluation. [facility] Past Medical History Medical History Irritable bowel syndrome without diarrhea Ingrown toenail of both feet Arthralgia Current moderate episode of major depressive disorder without prior episode Current severe episode of major depressive disorder without prior episode Other fatigue Mixed hyperlipidemia Upper respiratory tract infection Vitamin D deficiency COVID-19 Encounter for medication management Counseling on health promotion and disease prevention Psoriatic arthritis (~2000) NISH positive Hypoxia Pneumonia due to COVID-19 virus Suspected COVID-19 virus infection Acute bronchitis Arthritis Psoriasis Hx of headache Allergies Anxiety Viral meningitis (~1999) Surgical History Surgical History History of nephrectomy, left History of ankle surgery History of partial hysterectomy (~2008) History of kidney donation (~2012) Family History Family History Grandparent Diabetes mellitus Hypertension Family history of elevated blood lipids Family history of cardiovascular disease Cerebrovascular accident Family history of arthritis Family history of Parkinson's disease Family history of malignant neoplasm of bone Family history of malignant neoplasm of breast in first degree relative Skin cancer Acute myocardial infarction Heart disease Cancer Gout Father Depression Family history of arthritis Cancer Mother Family history of glaucoma Hypertension Family history of elevated blood lipids Fibromyalgia Anxiety GERD (gastroesophageal reflux disease) Social History Social History Smoking status: Never smoker Second hand tobacco smoke exposure: No Alcohol intake: never Substance use: never Substance use type: does not use Lack of Transportation: No Lack of Food: Never True Current Housing: I Have Housing Concerned About Future Housing: No Difficulty Paying Gas/Electric Bills: No Difficulty Paying for Meds: No Currently Unemployed: No Education: Bachelor's Degree Difficulty w/ Childcare or Family Care: No Living arrangements: with family Occupation/Education: occupation Gender identity (if verbalized by the patient): Female Sexual Orientation (if Verbalized by the Patient): Straight or Heterosexual Spiritual care concerns: No Agree to blood products: Yes Anes - Eval Final PreProcedure Day of Procedure 05/01/25 12:07 Patient weight: normal Lungs: normal air movement Airway: Mallampati scale Neurological: alert and oriented Last oral intake: >/= 8 hours ASA classification: II Emergent: no Anesthetic plan: proceed Anesthesia type and monitoring: general GIVS and standard monitoring Results Review: All pre-operative results and documents have been reviewed as part of the pre-operative evaluation. Psoriatic arthritis, anxiety, hx of GERD/dysphagia. Informed Consent: The patient's anesthetic plan and its attendant risks and benefits were discussed with the patient/family/POA. Questions were solicited and answers provided to the satisfaction of the patient/family/POA.
[2025-05-01] MEDS: SIMETHICONE ORAL SUSPENSION 20 MG/0.3 ML 30 ML BOTTLE 1.8 ML PO (12:15)
--- NOTE | 2025-05-01 12:20 | PM.IMHP ---
H&P: HPI History of Present Illness Date/Time: 05/01/25 12:20 Chief Complaint: Dysphagia-GERD Narrative: patient has longstanding history of dysphagia to solids, describing food getting stuck in her middle chest 50% of the times. She also has a longstanding history of heartburn which is improved with pantoprazole that was recently prescribed. She never had a colonoscopy so this is her 1st screening colonoscopy and is also scheduled for an EGD. Review of Systems Review of Systems: All systems reviewed & are unremarkable except as noted in HPI and below PMFSH Past Medical History Medical History Irritable bowel syndrome without diarrhea Ingrown toenail of both feet Arthralgia Current moderate episode of major depressive disorder without prior episode Current severe episode of major depressive disorder without prior episode Other fatigue Mixed hyperlipidemia Upper respiratory tract infection Vitamin D deficiency COVID-19 Encounter for medication management Counseling on health promotion and disease prevention Psoriatic arthritis (~2000) NISH positive Hypoxia Pneumonia due to COVID-19 virus Suspected COVID-19 virus infection Acute bronchitis Arthritis Psoriasis Hx of headache Allergies Anxiety Viral meningitis (~1999) Surgical History Surgical History History of nephrectomy, left History of ankle surgery History of partial hysterectomy (~2008) History of kidney donation (~2012) Family History Family History Grandparent Diabetes mellitus Hypertension Family history of elevated blood lipids Family history of cardiovascular disease Cerebrovascular accident Family history of arthritis Family history of Parkinson's disease Family history of malignant neoplasm of bone Family history of malignant neoplasm of breast in first degree relative Skin cancer Acute myocardial infarction Heart disease Cancer Gout Father Depression Family history of arthritis Cancer Mother Family history of glaucoma Hypertension Family history of elevated blood lipids Fibromyalgia Anxiety GERD (gastroesophageal reflux disease) Social History Social History Smoking status: Never smoker Second hand tobacco smoke exposure: No Alcohol intake: never Substance use: never Substance use type: does not use Lack of Transportation: No Lack of Food: Never True Current Housing: I Have Housing Concerned About Future Housing: No Difficulty Paying Gas/Electric Bills: No Difficulty Paying for Meds: No Currently Unemployed: No Education: Bachelor's Degree Difficulty w/ Childcare or Family Care: No Living arrangements: with family Occupation/Education: occupation Gender identity (if verbalized by the patient): Female Sexual Orientation (if Verbalized by the Patient): Straight or Heterosexual Spiritual care concerns: No Agree to blood products: Yes Meds Home Medications and Allergies Home Medications ?Medication ?Instructions ?Recorded ?Confirmed ?Type fexofenadine 60 mg tablet (Glenna 60 mg PO Q12H 08/12/20 05/01/25 History Allergy) folic acid 1 mg tablet 1 mg PO DAILY #90 tabs 03/29/21 05/01/25 Rx fluticasone propionate 50 1 spray intranasal DAILY #15.8 mL 09/05/21 05/01/25 Rx mcg/actuation nasal spray,suspension (Flonase Allergy Relief) methotrexate sodium 2.5 mg tablet 15 mg PO WEEKLY 12/14/21 05/01/25 History adalimumab 40 mg/0.8 mL See Rx Instructions subcut .COMPLEX 07/11/22 05/01/25 History subcutaneous syringe kit (Humira) cyclobenzaprine 10 mg tablet 10 mg PO TID #90 tabs 12/07/22 05/01/25 Rx sertraline 100 mg tablet See Rx Instructions .Route 06/06/24 05/01/25 Rx .COMPLEX #135 tabs alprazolam 0.5 mg tablet 0.5 mg PO TID PRN anxiety #90 tabs 06/10/24 04/23/25 Rx albuterol sulfate 90 mcg/actuation 1 inh inhalation Q4H PRN shortness 09/22/24 04/23/25 Rx aerosol inhaler (Ventolin HFA) of breath or wheezing #8.5 grams sumatriptan succinate 50 mg tablet 50 mg PO .COMPLEX #10 tabs 10/01/24 05/01/25 Rx ergocalciferol (vitamin D2) 1,250 See Rx Instructions .Route 11/14/24 05/01/25 Rx mcg (50,000 unit) capsule .COMPLEX #12 caps dicyclomine 10 mg capsule 10 mg PO .every 6 hours PRN 02/27/25 04/23/25 Rx abdominal pain #30 caps omeprazole 40 mg capsule,delayed 40 mg PO DAILY #30 caps 02/27/25 05/01/25 Rx release Allergies Allergy/AdvReac Type Severity Reaction Status Date / Time corn Allergy Severe facial Verified 05/01/25 11:23 flushing and tingling gluten Allergy Unknown Gastrointestinal Verified 05/01/25 11:23 Upset doxycycline AdvReac Severe Nausea and Verified 05/01/25 11:23 Vomiting Vital Signs Vital Signs - 24 hr 05/01/25 11:30 Temperature 98.2 F Pulse Rate 86 Respiratory Rate 16 Blood Pressure 130/86 Pulse Oximetry 97 Oxygen Delivery Room Air Exam Const: General: cooperative and healthy appearing Resp: Effort & Inspection: normal respiratory effort and able to speak in complete sentences Auscultation: clear to auscultation bilaterally Cardio: Rate: regular rate Rhythm: regular rhythm GI: Inspection: normal to inspection GI Palp: No No hepatosplenomegaly present Auscultation: normal bowel sounds Rectal Exam: deferred Skin: General skin exam: normal color Psych: Appearance: grossly normal Mental Status: mental status grossly normal Assessment and Plan Assessment and plan (1) GERD (gastroesophageal reflux disease): Code(s): K21.9 - Gastro-esophageal reflux disease without esophagitis Status: Acute Assessment and Plan: The patient is deemed a good candidate for the procedures. Consent signed. Will proceed. (2) Encounter for screening colonoscopy: Code(s): Z12.11 - Encounter for screening for malignant neoplasm of colon Status: Acute
--- NOTE | 2025-05-01 12:39 | SUR.OPER ---
EGD ENDED AT 1234 COLON START 1230
--- NOTE | 2025-05-01 12:49 | S_PTH ---
PATIENT: Inocencia Acosta LOC: [facility] U#:[id number] AGE/SX: 49/F ROOM: RE05/01/[address]: Juan Pablo Donaldson MD : 1975 BED: DIS: 05/01/2025 SPEC #: [id number] RECD: 05/01/25 13:23 STATUS: EMANUEL REMark #: [id number] JAILENE: 05/01/25 12:[address]: Juan Pablo Donaldson DEPT: [facility] Surgical RECD BY: [place] Donis ENTERED: 05/01/25 13:24 SP TYPE: Surgical OTHR DR: Bev OsborneMD Tissues: A - Esophageal Biopsy B - Gastric Biopsy C - Gastric Biopsy Procedures: Hematoxylin and Eosin Stain Gross and Microscopic Level 4
[2025-05-01 12:53] VITALS: BP 120/70; PULSE 83; RESP 17; O2SAT 98
[2025-05-01 13:03] VITALS: BP 127/86; PULSE 74; RESP 17; O2SAT 100
[2025-05-01 13:13] VITALS: BP 119/87; PULSE 67; RESP 20; O2SAT 96
== END 2025-05-01 13:20 | disposition home or self-care (01) ==
PROVIDERS: PCP Family Medicine; Referring Provider Nurse Practitioner; Visit Provider Internal Medicine Gastroenterology
PROC: 0DJ08ZZ Inspection of Upper Intestinal Tract, Via Natural or Artificial Opening Endoscopic (ICD-10-PCS; CPT 45378; principal; 2025-05-01 12:30)
DX: Z12.11 Encounter for screening for malignant neoplasm of colon (principal); K29.30 Chronic superficial gastritis without bleeding; K44.9 Diaphragmatic hernia without obstruction or gangrene; R13.10 Dysphagia, unspecified; K21.9 Gastro-esophageal reflux disease without esophagitis
CPT/HCPCS: 45378; 43239; 88305; J2003; J2704; J7120

== ENCOUNTER 2025-05-14 15:02 | Outpatient (CLI) | payer OTHER, SELFPAY ==
--- NOTE | ~2025-05-14 | XR_ITS ---
EXAMINATION: XR ankle RT 2V, 05/14/2025 15:05 CDT HISTORY: M25.571 - Pain in right ankle and joints of right foot COMPARISON: No comparisons available. Findings: No acute fracture or malalignment. No significant degenerative changes. Soft tissues unremarkable. Impression: No acute fracture or malalignment. Reviewed, dictated and finalized at location P. Impression: No acute fracture or malalignment.
--- OUTSIDE RECORDS SUMMARY | 2025-05-14 15:05 | XMS_ITS | Encounter Summary ---
Author Organization [facility] Address [address] [place] [address] Phone Care Team Providers Care Board Member Name Role Phone Bev Osborne MD Primary Care Provider [phone] Encounter Details Date Type Department Care Team [...] on file Legal Sex Female 10:25 AM FOIL WRAPPER Gender Identity Female 04/04/2024 10:17 AM CDT [...] on filedocumented in this encounter Care Teams Board Member Relationship Specialty Start Date End Date Bev Osborne MD PCP - General Family Medicine 05/09/22 documented as of this encounter
--- OUTSIDE RECORDS SUMMARY | 2025-05-14 15:05 | XMS_ITS | Encounter Summary ---
Author Organization [facility] Address [address] [place] [address] Phone Care Team Providers Care Medical Clerk Name Role Phone Bev Osborne MD Primary Care Provider [phone] Encounter Details Date Type Department Care Team [...] file Legal Sex Female 10:25 AM SENIOR PREMIUM AUDITOR Gender Identity Female 04/04/2024 10:17 AM CDT [...] filedocumented in this encounter Care Teams Medical Clerk Relationship Specialty Start Date End Date Bev Osborne MD PCP - General Family Medicine 05/09/22 documented as of this encounter
--- OUTSIDE RECORDS SUMMARY | 2025-05-14 15:05 | XMS_ITS | Encounter Summary ---
Author Organization [facility] Address [address] [place] [address] Phone Care Team Providers Care Siderographer Name Role Phone Carole Solomon MD Primary Care Provider [phone] Bev Osborne MD Primary Care Provider [phone] Encounter Details Date Type Department Care Team (Late st Contact Info) Description 12/28/2020 Orders Only [facility] Scanning, Provider Social History Tobacco Use Types Packs/Day Years Used Date Smoking Tobacco: Never Comments Unknown Sex and Gender Information Value Date Recorded Sex Assigned at Not on file Legal Sex Female 10:25 AM BACTERIOLOGY PROFESSOR Gender Identity Female 04/04/2024 10:17 AM CDT [...] on filedocumented in this encounter Care Teams Siderographer Relationship Specialty Start Date End Date Carole Solomon MD [facility] [place] [address] PCP - General 06/08/17 05/08/22 Bev Osborne MD [facility] [place], [place] [id number] PCP - General Family Medicine 05/09/22 documented as of this encounter
--- OUTSIDE RECORDS SUMMARY | 2025-05-14 15:05 | XMS_ITS | Encounter Summary ---
Author Organization [facility] Address [address] [place] [address] Phone Care Team Providers Care Needle Loom Operator Name Role Phone Bev Osborne MD Primary Care Provider [phone] Encounter Details Date Type Department Care Team [...] on file Legal Sex Female 10:25 AM VACATION GUIDE Gender Identity Female 04/04/2024 10:17 AM CDT [...] on filedocumented in this encounter Care Teams Needle Loom Operator Relationship Specialty Start Date End Date Bev Osborne MD PCP - General Family Medicine 05/09/22 documented as of this encounter
--- OUTSIDE RECORDS SUMMARY | 2025-05-14 15:05 | XMS_ITS | Encounter Summary ---
Author Organization [facility] Address [address] [place] [address] Phone Care Team Providers Care Slot Router Name Role Phone Bev Osborne MD Primary Care Provider [phone] Encounter Details Date Type Department Care Team [...] on file Legal Sex Female 10:25 AM OUTSOLE CASER Gender Identity Female 04/04/2024 10:17 AM CDT [...] on filedocumented in this encounter Care Teams Slot Router Relationship Specialty Start Date End Date Bev Osborne MD PCP - General Family Medicine 05/09/22 documented as of this encounter
--- OUTSIDE RECORDS SUMMARY | 2025-05-14 15:05 | XMS_ITS | Clinical Summary ---
Author Organization [facility] Address [address] [place] [address] Care Team Providers Care Pump Stitcher Name Role Phone Bev Osborne MD Primary Care Provider [phone] Allergies Active Allergy Reactions Criticality Noted Date [...] 7 days 96 tablet 1 5 Active adalimumab-adaz (Hyrimoz,CF, Pen) 40 mg/0.4 mL pen injector INJECT 1 PEN UNDER THE SKIN EVERY 14 DAYS 1.6 mL 5 5 Active Active Problems No known active problems Surgical History Surgery Date Site/Laterality Comments PARTIAL [...] on file Legal Sex Female 10:25 AM BAKER HELPER Gender Identity Female 04/04/2024 10:17 AM [...] to request sample to be sent to [facility] for Hepatitis C Virus (HCV) RNA Detection and Quantitation by Real-Time Reverse Typesetters Printer-PCR (RT-PCR). Current interpretive data was last revised on 2011 us Supa Bella MD LAB BLOOD ORDERABLES Final Result HISTORICAL RESULTS from Last 3 Months or Most Recently Relevant to Health Maintenance Insurance [facility] Address: [facility] [address] [place] [address] [facility] Address: [place] [address] [facility] Address: [place] [address] Care Teams Pump Stitcher Relationship Specialty Start Date End Date Bev Osborne MD PCP - General Family Medicine 05/09/22
--- OUTSIDE RECORDS SUMMARY | 2025-05-14 15:05 | XMS_ITS | Encounter Summary ---
Author Organization [facility] Address [address] [place] [address] Phone Care Team Providers Care Patient Accounts Clerk Name Role Phone Bev Osborne MD Primary Care Provider [phone] Encounter Details Date Type Department Care Team (Late st Contact Info) Description 07/12/2022 Orders Only [facility] Scanning, Provider Social History Tobacco Use Types Packs/Day Years Used Date Smoking Tobacco: Never Comments Unknown Sex and Gender Information Value Date Recorded Sex Assigned at Not on file Legal Sex Female 10:25 AM CREATIVE INTERN Gender Identity Female 04/04/2024 10:17 AM CDT [...] on filedocumented in this encounter Care Teams Patient Accounts Clerk Relationship Specialty Start Date End Date Bev Osborne MD PCP - General Family Medicine 05/09/22 documented as of this encounter
--- OUTSIDE RECORDS SUMMARY | 2025-05-14 15:05 | XMS_ITS | Encounter Summary ---
Author Organization [facility] Address [address] [place] [address] Phone Care Team Providers Care Reeling Operator Name Role Phone Bev Osborne MD Primary Care Provider [phone] Encounter Details Date Type Department Care Team [...] on file Legal Sex Female 10:25 AM ENROLLMENT NURSE Gender Identity Female 04/04/2024 10:17 AM CDT [...] on filedocumented in this encounter Care Teams Reeling Operator Relationship Specialty Start Date End Date Bev Osborne MD PCP - General Family Medicine 05/09/22 documented as of this encounter
--- OUTSIDE RECORDS SUMMARY | 2025-05-14 15:05 | XMS_ITS | Encounter Summary ---
Author Organization [facility] Address [address] [place] [address] Phone Care Team Providers Care Demolition Crane Operator Name Role Phone Bev Osborne MD Primary Care Provider [phone] Encounter Details Date Type Department Care Team [...] on file Legal Sex Female 10:25 AM MOLDER BENCH Gender Identity Female 04/04/2024 10:17 AM CDT [...] on filedocumented in this encounter Care Teams Demolition Crane Operator Relationship Specialty Start Date End Date Bev Osborne MD PCP - General Family Medicine 05/09/22 documented as of this encounter
== END 2025-05-14 15:03 | disposition home or self-care (01) ==
LOC: ANHIMG 15:04
PROVIDERS: PCP Family Medicine; Visit Provider Student in an Organized Health Care Education/Training Program
DX: M25.571 Pain in right ankle and joints of right foot (principal)
CPT/HCPCS: 73600

== ENCOUNTER 2025-06-17 09:38 | Outpatient (CLI) | payer OTHER, SELFPAY ==
[2025-06-17 09:59] LABS: Hematocrit 45.3 % (37.0-47.0); Hemoglobin 15.3 g/dL (12.0-15.0); Immature Granulocyte Percent A 0.3 % (0-0.5); Lymphocytes Absolute Auto 2.92 K/mm3 (0.9-3.2); Mean Corpuscular HGB Conc 33.8 g/dl (32-36); Mean Corpuscular Hemoglobin 33.3 pg (26-34); Mean Corpuscular Volume 98.5 fl (80-100); Nucleated Red Blood Cells Absolute Auto 0.000 K/mm3 (0.0-0.012); Nucleated Red Blood Cells Perc 0.0 % (0.0-0.2); Platelet Count Result 224 k/mm3 (150-375); Red Blood Count 4.60 M/mm3 (4.2-5.4); White Blood Count 6.6 K/mm3 (4.5-10.0)
[2025-06-17 09:59] LABS: Add Urine Microscopic? NO; Appearance Urine Clear (Clear); Glucose Urine UA Negative (Negative); Leukocyte Esterase Ur Negative LEU/UL (Negative); Nitrate Urine Negative (Negative); Specific Grav Ur 1.022 (1.001-1.035)
[2025-06-17 10:21] LABS: Alanine Aminotransferase 38 U/L (6-35); Albumin Level 4.2 g/dL (3.5-5.1); Alkaline Phosphatase 62 U/L (38-126); Anion Gap 5 mmol/L (4-12); Aspartate Amino Transferase 54 U/L (14-36); Bilirubin,Total 1.0 mg/dL (0.2-1.3); Blood Urea Nitrogen 14 mg/dL (7-17); CRP 0.8 mg/dL (<1.0); Calcium 8.6 mg/dL (8.4-10.2); Carbon Dioxide 25 mmol/L (22-30); Chloride 104 mmol/L (98-107); Estimated Glomerular Filt Rate 57; Glucose 98 mg/dL (65-110); Potassium 4.4 mmol/L (3.4-5.0); Sodium 134 mmol/L (137-145); Total Protein 7.6 g/dL (6.3-8.2)
--- OUTSIDE RECORDS SUMMARY | 2025-06-18 09:25 | XMS_ITS | Encounter Summary ---
Author Organization [facility] Address [address] [place] [address] Phone Care Team Providers Care Water Filterer Helper Name Role Phone Carole Solomon MD Primary Care Provider [phone] Bev Osborne MD Primary Care Provider [phone] Encounter Details Date Type Department Care Team (Late st Contact Info) Description 12/28/2020 Orders Only [facility]HE[facility] Scanning, Provider Social History Tobacco Use Types Packs/Day Years Used Date Smoking Tobacco: Never Comments Unknown Sex and Gender Information Value Date Recorded Sex Assigned at Not on file Legal Sex Female 10:25 AM CONTESTANT COORDINATOR Gender Identity Female 04/04/2024 10:17 AM [...] on filedocumented in this encounter Care Teams Water Filterer Helper Relationship Specialty Start Date End Date Carole Solomon MD [address] [place] [address] [place] [address] PCP - General 06/08/17 05/08/22 Bev Osborne MD [facility] [place] [address] PCP - General Family Medicine 05/09/22 documented as of this encounter
--- OUTSIDE RECORDS SUMMARY | 2025-06-18 09:25 | XMS_ITS | Encounter Summary ---
Author Organization [facility] Address [address] [place] [address] Phone Care Team Providers Care Sewing Line Baler Name Role Phone Bev Osborne MD Primary Care Provider [phone] Encounter Details Date Type Department Care Team (Late st Contact Info) Description 07/12/2022 Orders Only [facility] Scanning, Provider Social History Tobacco Use Types Packs/Day Years Used Date Smoking Tobacco: Never Comments Unknown Sex and Gender Information Value Date Recorded Sex Assigned at Not on file Legal Sex Female 10:25 AM COMPUTER GAME TESTER Gender Identity Female 04/04/2024 10:17 AM [...] on filedocumented in this encounter Care Teams Sewing Line Baler Relationship Specialty Start Date End Date Bev Osborne MD PCP - General Family Medicine 05/09/22 documented as of this encounter
--- OUTSIDE RECORDS SUMMARY | 2025-06-18 09:25 | XMS_ITS | Clinical Summary ---
Author Organization [facility] Address [facility] [place] [address] Care Team Providers Care Shipping Order Clerk Name Role Phone Bev Osborne MD Primary Care Provider [phone] Allergies Active Allergy Reactions Criticality Noted Date [...] Encounters Date Type Department Care Team Description 06/12/2025 Orders Only [facility] Medicine Rheumatology [address] [place] [address] [place] [id number] Nida Vasquez MD Psoriatic arthritis (HCC) (Primary [...] on file Legal Sex Female 10:25 AM ATTENDANT CAMPGROUND Gender Identity Female 04/04/2024 10:17 AM CDT [...] to request sample to be sent to [facility] for Hepatitis C Virus (HCV) RNA Detection and Quantitation by Real-Time Reverse Coal Sampler-PCR (RT-PCR). Current interpretive data was last revised on 2011 us Supa Bella MD LAB BLOOD ORDERABLES Final Result HISTORICAL RESULTS from Last 3 Months or Most Recently Relevant to Health Maintenance Insurance [facility] Care Teams Shipping Order Clerk Relationship Specialty Start Date End Date Bev Osborne MD PCP - General Family Medicine 05/09/22
--- OUTSIDE RECORDS SUMMARY | 2025-06-18 09:25 | XMS_ITS | Encounter Summary ---
Author Organization [facility] Address [address] [place] [address] Phone Care Team Providers Care Farm Consultant Name Role Phone Bev Osborne MD Primary Care Provider [phone] Encounter Details Date Type Department Care Team [...] file Legal Sex Female 10:25 AM SENIOR PORTFOLIO ANALYST Gender Identity Female 04/04/2024 10:17 AM [...] on filedocumented in this encounter Care Teams Farm Consultant Relationship Specialty Start Date End Date Bev Osborne MD PCP - General Family Medicine 05/09/22 documented as of this encounter
--- OUTSIDE RECORDS SUMMARY | 2025-06-18 09:25 | XMS_ITS | Encounter Summary ---
Author Organization [facility] Address [address] [place] [address] Phone Care Team Providers Care Fare Enforcement Officer Name Role Phone Bev Osborne MD Primary Care Provider [phone] Encounter Details Date Type Department Care Team [...] on file Legal Sex Female 10:25 AM MANUFACTURING CLERK Gender Identity Female 04/04/2024 10:17 AM CDT [...] on filedocumented in this encounter Care Teams Fare Enforcement Officer Relationship Specialty Start Date End Date Bev Osborne MD PCP - General Family Medicine 05/09/22 documented as of this encounter
--- OUTSIDE RECORDS SUMMARY | 2025-06-18 09:25 | XMS_ITS | Encounter Summary ---
Author Organization [facility] Address [address] [place] [address] Phone Care Team Providers Care Electrician Apprentice Powerhouse Name Role Phone Bev Osborne MD Primary Care Provider [phone] Encounter Details Date Type Department Care Team [...] on file Legal Sex Female 10:25 AM TUBE ROLLER Gender Identity Female 04/04/2024 10:17 AM CDT [...] on filedocumented in this encounter Care Teams Electrician Apprentice Powerhouse Relationship Specialty Start Date End Date Bev Osborne MD PCP - General Family Medicine 05/09/22 documented as of this encounter
--- OUTSIDE RECORDS SUMMARY | 2025-06-18 09:25 | XMS_ITS | Encounter Summary ---
Author Organization [facility] Address [address] [place] [address] Phone Care Team Providers Care Eyeglass Maker Name Role Phone Bev Osborne MD Primary Care Provider [phone] Encounter Details Date Type Department Care Team [...] on file Legal Sex Female 10:25 AM HOT BILLET SHEAR OPERATOR Gender Identity Female 04/04/2024 10:17 AM [...] on filedocumented in this encounter Care Teams Eyeglass Maker Relationship Specialty Start Date End Date Bev Osborne MD PCP - General Family Medicine 05/09/22 documented as of this encounter
--- OUTSIDE RECORDS SUMMARY | 2025-06-18 09:25 | XMS_ITS | Encounter Summary ---
Author Organization [facility] Address [address] [place] [address] Phone Care Team Providers Care Mechanical Engineering Lecturer Name Role Phone Bev Osborne MD Primary Care Provider [phone] Encounter Details Date Type Department Care Team [...] on file Legal Sex Female 10:25 AM MOUSE BREEDER Gender Identity Female 04/04/2024 10:17 AM CDT [...] on filedocumented in this encounter Care Teams Mechanical Engineering Lecturer Relationship Specialty Start Date End Date Bev Osborne MD PCP - General Family Medicine 05/09/22 documented as of this encounter
--- OUTSIDE RECORDS SUMMARY | 2025-06-18 09:25 | XMS_ITS | Encounter Summary ---
Author Organization [facility] Address [address] [place] [address] Phone Care Team Providers Care Administrative Assistant Name Role Phone Bev Osborne MD Primary [...] on file Legal Sex Female 10:25 AM ELECTRONICS SYSTEM MECHANIC Gender Identity Female 04/04/2024 10:17 AM [...] on filedocumented in this encounter Care Teams Administrative Assistant Relationship Specialty Start Date End Date Bev Osborne MD PCP - General Family Medicine 05/09/22 documented as of this encounter
== END 2025-06-17 09:39 | disposition home or self-care (01) ==
LOC: ANHLAB 09:40
PROVIDERS: PCP Student in an Organized Health Care Education/Training Program; Visit Provider Internal Medicine
DX: L40.50 Arthropathic psoriasis, unspecified (principal); Z79.899 Other long term (current) drug therapy
CPT/HCPCS: 36415; 80053; 81003; 82248; 85025; 85652; 86140

== ENCOUNTER 2025-07-30 07:49 | Outpatient (CLI) | payer OTHER, SELFPAY ==
--- NOTE | ~2025-07-30 | MR_ITS ---
EXAM/PROCEDURE: MR ankle RT wo con HISTORY: post tibial tendinitis COMPARISON: None available. TECHNIQUE: Multiplanar right ankle MRI. No contrast given. FINDINGS: No fracture subluxation or dislocation present. Small focal area of chondral defect present along the medial talar dome as seen on image 15 series 6. Subjacent bone marrow signal is normal however and there is no evidence of fracture or OCD. The posterior tibialis tendon becomes mildly thickened just above the medial malleolus, and extending just below the medial malleolus is more significantly thickened with hyperintense T2-weighted signal. Small surface tears may be present along the medial margin of the tendon such as seen on images 2021 of series 2. The distal tendon appears intact. The flexor digitorum longus, and flexor hallucis longus tendons appear normal. Small amounts of fluid present within the tendon sheaths. The peroneal tendons, and extensor tendons appear intact. Small amount of fluid present in the peroneal tendon sheaths. Visualized portions of the Achilles tendon appear normal. The talofibular and calcaneofibular as well as deltoid ligaments appear intact. Mild to moderate edematous changes present in the subcutaneous soft tissues along the medial aspect of the ankle and to lesser extent along the lateral aspect. No drainable fluid collection or suspicious mass. IMPRESSION: 1. Findings consistent with advanced tendinitis and possible partial-thickness tear involving the posterior tibialis tendon. 2. Small focal chondral defect along the medial malleolus with no subjacent cortical disruption or fracture. 3. Fluid present in several of the tendon sheaths probably physiologic but could represent tenosynovitis of some of the other tendons. Reviewed, dictated and finalized at location A. SSION DISCHARGE RN IMPRESSION: 1. Findings consistent with advanced tendinitis and possible partial-thickness tear involving the posterior tibialis tendon. 2. Small focal chondral defect along the medial malleolus with no subjacent cor tical disruption or fracture. 3. Fluid present in several of the tendon sheaths probably physiologic but coul d represent tenosynovitis of some of the other tendons.
--- OUTSIDE RECORDS SUMMARY | 2025-07-30 07:56 | XMS_ITS | Encounter Summary ---
Author Organization [facility] Address [address] [place] [address] Phone Care Team Providers Care Desulphuring Operator Name Role Phone Bev Osborne MD Primary Care Provider [phone] Encounter Details Date Type Department Care Team [...] on file Legal Sex Female 10:25 AM CONFERENCE PLANNING MANAGER Gender Identity Female 04/04/2024 10:17 AM [...] on filedocumented in this encounter Care Teams Desulphuring Operator Relationship Specialty Start Date End Date Bev Osborne MD PCP - General Family Medicine 05/09/22 documented as of this encounter
--- OUTSIDE RECORDS SUMMARY | 2025-07-30 07:56 | XMS_ITS | Encounter Summary ---
Author Organization [facility] Address [address] [place] [address] Phone Care Team Providers Care Hand Stapler Name Role Phone Bev Osborne MD Primary Care Provider [phone] Encounter Details Date Type Department Care Team [...] on file Legal Sex Female 10:25 AM POLICE BOOKING OFFICER Gender Identity Female 04/04/2024 10:17 AM CDT [...] filedocumented in this encounter Care Teams Hand Stapler Relationship Specialty Start Date End Date Bev Osborne MD PCP - General Family Medicine 05/09/22 documented as of this encounter
--- OUTSIDE RECORDS SUMMARY | 2025-07-30 07:56 | XMS_ITS | Encounter Summary ---
Author Organization [facility] Address [address] [place] [address] Phone Care Team Providers Care Commodity Manager Name Role Phone Bev Osborne MD Primary Care Provider [phone] Encounter Details Date Type Department Care Team [...] on file Legal Sex Female 10:25 AM GSA COORDINATOR Gender Identity Female 04/04/2024 10:17 AM [...] on filedocumented in this encounter Care Teams Commodity Manager Relationship Specialty Start Date End Date Bev Osborne MD PCP - General Family Medicine 05/09/22 documented as of this encounter
--- OUTSIDE RECORDS SUMMARY | 2025-07-30 07:56 | XMS_ITS | Clinical Summary ---
Author Organization [facility] Address [address] [place] [address] Care Team Providers Care Dock Associate Name Role Phone Bev Osborne MD Primary Care Provider [phone] Allergies Active Allergy Reactions Criticality Noted Date Comments Doxycycline Diarrhea Low 09/13/2021 Also hives Gluten Stomach upset Low 02/21/2024 Medications Bifidobacterium infantis (ALIGN) 4 mg capsule [...] 3 10/29/19 25 Active methotrexate 2.5 mg tabletIndicatio ns:Other - non-oncology Take 8 tablets (20 mg total) by mouth every 7 days 96 tablet 2 06/22/20 25 Active secukinumab (COSENTYX) 300 mg/2 mL pen injector subcutaneous syringeIndicati ons:Psoriatic Arthritis Inject 2 mL (300 mg total) under the skin every 28 (twenty-eight ) days 2 mL 11 07/14/20 Active adalimumab-adaz (Hyrimoz,CF, Pen) 40 mg/0.4 mL pen injector INJECT 1 PEN UNDER THE SKIN EVERY 14 DAYS 1.6 mL 5 03/05/20 25 025 Discontinued predniSONE (DELTASONE) 5 mg tabletIndicatio ns:Psoriatic arthritis (HCC),High risk medication use Take 4 tablets (20 mg) by mouth daily AND 3 tablets (15 mg) daily AND 2 tablets (10 mg) daily. Do all this for 5 days. 45 tablet 07/14/20 25 025 Discontinued(R eorder) predniSONE (DELTASONE) 5 mg tabletIndicatio ns:Psoriatic arthritis (HCC),High risk medication use Take 4 tablets (20 mg) by mouth daily AND 3 tablets (15 mg) daily AND 2 tablets (10 mg) daily. Do all this for 5 days. 45 tablet 07/14/20 25 025 Active Problems No known active problems Encounters Date Type Department Care Team Description 07/15/2025 Telephone [facility] [address] [place] [address] Chikis Cherry RPh Prior Auth 07/14/2025 11:20 AM COMMISSARY ASSISTANT Office Visit [facility] Medicine Rheumatology [address] [place] [address] [address] [place] [phone] Nida Vasquez MD Psoriatic arthritis (HCC) (Primary Dx); High risk medication use 07/14/2025 Telephone [facility] Medicine Rheumatology [address] [place] [address] [address] [place] [address] Chasidy Avilez RMA P.A. NEEDED FOR COSYNTEX; P.A. NEEDED FOR COSENTYX 06/12/2025 Orders Only [facility] Medicine Rheumatology [address] [place] [address] [facility] 5th [place] [address] [place] [phone] Nida Vasquez MD Psoriatic arthritis (HCC) (Primary [...] on file Legal Sex Female 10:25 AM COMMISSARY ASSISTANT Gender Identity Female 04/04/2024 10:17 AM CDT Sexual Orientation Straight 04/04/2024 10 :17 AM CDT Last Filed Vital Signs Vital Sign Reading Time Taken Comments Blood Pressure 142/84 07/14/2025 11:17 AM COMMISSARY ASSISTANT Pulse 85 07/14/2025 11:17 AM COMMISSARY ASSISTANT Temperature 36.4 C (97.6 F) 07/14/2025 11:17 AM COMMISSARY ASSISTANT Respiratory Rate - - Oxygen Saturation 96% 07/14/2025 11: 17 AM COMMISSARY ASSISTANT Inhaled Oxygen Concentration - - Weight 122.6 kg (270 lb 4.8 oz) 025 11:17 AM COMMISSARY ASSISTANT Height 172.7 cm (5' 8) 07/14/2025 11:1 7 AM COMMISSARY ASSISTANT Body Mass Index 41.1 07/14/2025 11:17 AM COMMISSARY ASSISTANT Plan of Treatment Health Maintenance Due Date Last Done Comments Breast Cancer Screening-Mammogram 1973 Cervical Cancer Screening 1973 Colon Cancer Screening-Colonoscopy 1973 Depression Screening 1973 Regular Well Visit/Exam 18-64 10/14/1991 Pneumococcal vaccine <65 (1 of 2 - PCV) 1992 Zoster Vaccine (1 of 2) 1992 Covid-19 Vaccine (3 - Pfizer risk series) 08/31/2021 08/03/2021, 07/13/2021 Influenza Vaccine (#1) 2025 3, 05/24/2021, 06/22/2020 DTaP/Tdap/Td Vaccine (2 - Td or Tdap) 12/15/203111/2021 Hepatitis B Screening Completed 01/08/2013 Hepatitis C Screening Completed 01/08/2013 Procedures Procedure [...] to request sample to be sent to [facility] for Hepatitis C Virus (HCV) RNA Detection and Quantitation by Real-Time Reverse Assistant Attorney General-PCR (RT-PCR). Current interpretive data was last revised on 2011 Supa Bella MD LAB BLOOD ORDERABLES Final Result HISTORICAL RESULTS from Last 3 Months or Most Recently Relevant to Health Maintenance Insurance [facility] Care Teams Dock Associate Relationship Specialty Start Date End Date Bev Osborne MD PCP - General Family Medicine 05/09/22
--- OUTSIDE RECORDS SUMMARY | 2025-07-30 07:56 | XMS_ITS | Encounter Summary ---
Author Organization [facility] Address [address] [place] [address] Phone Care Team Providers Care Junior Financial Analyst Name Role Phone Bev Osborne MD Primary Care Provider [phone] Reason for Visit * Reason Onset Date Comments P.A. NEEDED FOR COSYNTEX 07/14/2025 P.A. NEEDED FOR COSENTYX 07/14/2025 Encounter Details Date Type Department Care Team (Late st Contact Info) Description 07/14/2025 Telephone [facility] Medicine Rheumatology [address] [place] [address] Chasidy Avilez RMA P.A. NEEDED FOR COSYNTEX; P.A. NEEDED FOR COSENTYX Social History Tobacco Use Types Packs/Day Years [...] on file Legal Sex Female 10:25 AM TRAFFIC RATE CLERK Gender Identity Female 04/04/2024 10:17 AM CDT Sexual Orientation Straight 04/04/2024 10 :17 AM CDT documented as of this encounter Miscellaneous Notes * Telephone Encounter - Chasidy Avilez RMA - 07/14/2025 12:15 PM CST P.A. needed for Cosentyx please FIC RATE CLERK documented in this encounter Plan of Treatment Not on file documented as of this encounter Visit Diagnoses Not on filedocumented in this encounter Discontinued Medications Medication Sig Discontinue Reason Start Date End Da te adalimumab-adaz (Hyrimoz,CF, Pen) 40 mg/0.4 mL pen injector INJECT 1 PEN UNDER THE SKIN EVERY 14 DAYS 03/05/2025 07/14/2025 documented as of this encounter Care Teams Junior Financial Analyst Relationship Specialty Start Date End Date Bev Osborne MD PCP - General Family Medicine 05/09/22 documented as of this encounter
--- OUTSIDE RECORDS SUMMARY | 2025-07-30 07:56 | XMS_ITS | Encounter Summary ---
Author Organization [facility] Address [address] [place] [address] Phone Care Team Providers Care Real Estate Teacher Name Role Phone Bev Osborne MD Primary Care Provider [phone] Encounter Details Date Type Department Care Team [...] on file Legal Sex Female 10:25 AM ROTATIONAL MOULDING OPERATOR Gender Identity Female 04/04/2024 10:17 AM [...] on filedocumented in this encounter Care Teams Real Estate Teacher Relationship Specialty Start Date End Date Bev Osborne MD PCP - General Family Medicine 05/09/22 documented as of this encounter
--- OUTSIDE RECORDS SUMMARY | 2025-07-30 07:56 | XMS_ITS | Encounter Summary ---
Author Organization [facility] Address [address] [place] [address] Phone Care Team Providers Care Ceramic Tile Installation Helper Name Role Phone Carole Solomon MD Primary Care Provider [phone] Bev Osborne MD Primary Care Provider [phone] Encounter Details Date Type Department Care Team (Late st Contact Info) Description 12/28/2020 Orders Only [facility] Scanning, Provider Social History Tobacco Use Types Packs/Day Years Used Date Smoking Tobacco: Never Comments Unknown Sex and Gender Information Value Date Recorded Sex Assigned at Not on file Legal Sex Female 10:25 AM HEEL TOP LIFT SPLITTER Gender Identity Female 04/04/2024 10:17 AM CDT [...] on filedocumented in this encounter Care Teams Ceramic Tile Installation Helper Relationship Specialty Start Date End Date Carole Solomon MD [facility] [place] [address] PCP - General 06/08/17 05/08/22 Bev Osborne MD [facility] [place], [place] [id number] PCP - General Family Medicine 05/09/22 documented as of this encounter
--- OUTSIDE RECORDS SUMMARY | 2025-07-30 07:56 | XMS_ITS | Encounter Summary ---
Author Organization [facility] Address [address] [place] [address] Phone Care Team Providers Care Wholesale Parts Salesperson Name Role Phone Bev Osborne MD Primary Care Provider [phone] Encounter Details Date Type Department Care Team [...] on file Legal Sex Female 10:25 AM ESTIMATOR PROJECT MANAGER Gender Identity Female 04/04/2024 10:17 AM [...] on filedocumented in this encounter Care Teams Wholesale Parts Salesperson Relationship Specialty Start Date End Date Bev Osborne MD PCP - General Family Medicine 05/09/22 documented as of this encounter
--- OUTSIDE RECORDS SUMMARY | 2025-07-30 07:56 | XMS_ITS | Encounter Summary ---
Author Organization [facility] Address [address] [place] [address] Phone Care Team Providers Care Art Objects Supervisor Name Role Phone Bev Osborne MD Primary Care Provider [phone] Encounter Details Date Type Department Care Team [...] on file Legal Sex Female 10:25 AM BROWNFIELD REDEVELOPMENT SPECIALIST Gender Identity Female 04/04/2024 10:17 AM [...] on filedocumented in this encounter Care Teams Art Objects Supervisor Relationship Specialty Start Date End Date Bev Osborne MD PCP - General Family Medicine 05/09/22 documented as of this encounter
--- OUTSIDE RECORDS SUMMARY | 2025-07-30 07:56 | XMS_ITS | Encounter Summary ---
Author Organization [facility] Address [address] [place] [address] Phone Care Team Providers Care Solar Mechanical Engineer Name Role Phone Bev Osborne MD Primary Care Provider [phone] Encounter Details Date Type Department Care Team (Late st Contact Info) Description 07/12/2022 Orders Only [facility] Scanning, Provider Social History Tobacco Use Types Packs/Day Years Used Date Smoking Tobacco: Never Comments Unknown Sex and Gender Information Value Date Recorded Sex Assigned at Not on file Legal Sex Female 10:25 AM SENIOR ACTUARIAL ANALYST Gender Identity Female 04/04/2024 10:17 AM [...] on filedocumented in this encounter Care Teams Solar Mechanical Engineer Relationship Specialty Start Date End Date Bev Osborne MD PCP - General Family Medicine 05/09/22 documented as of this encounter
== END 2025-07-30 07:50 | disposition home or self-care (01) ==
PROVIDERS: PCP Student in an Organized Health Care Education/Training Program; Visit Provider Podiatrist Foot & Ankle Surgery
DX: M24.171 Other articular cartilage disorders, right ankle (principal); M76.812 Anterior tibial syndrome, left leg; M76.821 Posterior tibial tendinitis, right leg
CPT/HCPCS: 73721